=== PATIENT | male | born 2000 | race Caucasian/White ===

== ENCOUNTER 2021-01-16 19:49 | Emergency (ER) | payer BC, OTHER ==
[~2021-01-16] VITALS: Ht 177.8 cm; Wt 83.9 kg
[2021-01-16] MEDS ORDERED: ORPHENADRINE 60 MG/2 ML (NORFLEX) AMP (ED ONLY) IVP STA (20:05)
[2021-01-16] MEDS ORDERED: NS IV 1000 ML 1,000 ML IV STA ×2 (20:05→21:32)
[2021-01-16] MEDS ORDERED: ONDANSETRON 4 MG/2 ML (SDV) Z0FRAN IVP STA (20:05)
[2021-01-16] MEDS ORDERED: KETOROLAC 30 MG/ML VIAL IVP STA (20:05)
--- NOTE | 2021-01-16 20:15 | ED Headache ---
General Chief Complaint: Head/Cervical Problems Stated Complaint: RT SIDE OF HEAD PULSING,SHAKING,VOMITTING Nursing Triage Note: Patient states that he began having a headache at approximately 16:00 today. Patient took 200mg of Ibuprofen at that time and went to sleep. When patient awoke from his nap, he states the headache felt worse. He reports vomiting once. Patient denies having any injury or symptoms of illness. Source: patient History of Present Illness Date Seen by Provider: Jan 16, 2021 Time Seen by Provider: 19:54 Initial Comments 20 yo male presenting with complaints of right sided headache and neck pain. He denies any trauma or injury to head. He feels the symptoms started around 1600. He has had coughing along with this. He denies subjective fever or chills. He has not taken his temperature prior to arrival. He tried 200 mg of Ibuprofen and took a nap. When he woke up he felt the pain was worse and had an episode of emesis x 1. He has some light sensitivity as well. he denies having headaches or symptoms like this before. 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 He denies any ill contacts. Timing/Duration: 4-6 hours Severity/Quality: severe (8 out of 10), throbbing Location: other (right side of head and neck) Prior Headaches/Recent Trauma: no recent headache/trauma Modifying Factors: worse with exposure to light, worse with movement Associated Symptoms: No confusion, No fatigue, No facial pain, No fever/chills, No flushing, No loss of consciousness, No nasal congestion, No nasal drainage, No numbness in legs/feet, No rash, No seizures, No sinus infection, No stiff neck, No vision changes, No weakness Allergies and Home Medications Allergies Coded Allergies: No Known Drug Allergies (Unverified , 01/16/21) Patient Home Medication List Home Medication List Reviewed: Yes Review of Systems Review of Systems Constitutional: No chills, No fever Eyes: Photophobia (mild) Ears, Nose, Mouth, Throat: denies ear pain, denies ear discharge, denies nose pain, denies nose discharge, denies epistaxis Respiratory: cough (started around time of headache); No short of breath Cardiovascular: no symptoms reported Gastrointestinal: see HPI Genitourinary: no symptoms reported; No dysuria Musculoskeletal: neck pain (tightness and pain to right lateral neck muscles) Skin: No rash Psychiatric/Neurological: Headache; Denies Numbness, Denies Paresthesia Past Bryvekj-Gvejqd-Bqyqqs Hx Patient Social History Tobacco Use?: No Substance use?: No Alcohol Use?: No Pt feels they are or have been: No Past Medical History Surgeries: Yes Orthopedic (Wrist and Lumbar spine) Respiratory: No Cardiac: No Neurological: No Genitourinary: No Gastrointestinal: No Musculoskeletal: No Endocrine: No HEENT: No Cancer: No Psychosocial: No Physical Exam Vital Signs Vital Signs - First Documented 01/16/21 19:53 Temp 37.0 Pulse 55 Resp 16 B/P (MAP) 139/81 (100) Pulse Ox 98 O2 Delivery Room Air Capillary Refill : Less Than 3 Seconds Height, Weight, BMI Height: '" Weight: lbs. oz. kg; 26.00 BMI Method: General Appearance: WD/WN, mild distress (appears to not feel well) HEENT: PERRL/EOMI, TMs normal, pharynx normal, photophobia (mild), other (tender to palpation right scalp and right lateral neck muscles with spasm) Neck: tender lateral (right lateral muscles of neck with spasm) Cardiovascular: normal peripheral pulses, regular rate, rhythm Respiratory: chest non-tender, lungs clear, normal breath sounds, no respiratory distress, no accessory muscle use Gastrointestinal: normal bowel sounds, non tender, soft, no pulsatile mass Extremities: normal range of motion, non-tender, normal capillary refill Psychiatric: alert, oriented x 3 Crainal Nerves: normal hearing, normal speech, PERRL Coordination/Gait: normal gait Motor/Sensory: no motor deficit, no sensory deficit Skin: normal color, warm/dry; No rash Progress/Results/Core Measures Results/Orders Lab Results Laboratory Tests Test 01/16/21 20:08 Range/Units White Blood Count 7.4 4.3-11.0 10^3/uL Red Blood Count 5.00 4.30-5.52 10^6/uL Hemoglobin 14.7 13.3-17.7 g/dL Hematocrit 41 40-54 % Mean Corpuscular Volume 82 80-99 fL Mean Corpuscular Hemoglobin 29 25-34 pg Mean Corpuscular Hemoglobin Concent 36 32-36 g/dL Red Cell Distribution Width 12.3 10.0-14.5 % Platelet Count 203 130-400 10^3/uL Mean Platelet Volume 10.4 9.0-12.2 fL Immature Granulocyte % (Auto) 0 % Neutrophils (%) (Auto) 71 42-75 % Lymphocytes (%) (Auto) 22 12-44 % Monocytes (%) (Auto) 6 0-12 % Eosinophils (%) (Auto) 1 0-10 % Basophils (%) (Auto) 0 0-10 % Neutrophils # (Auto) 5.2 1.8-7.8 X 10^3 Lymphocytes # (Auto) 1.6 1.0-4.0 X 10^3 Monocytes # (Auto) 0.5 0.0-1.0 X 10^3 Eosinophils # (Auto) 0.0 0.0-0.3 10^3/uL Basophils # (Auto) 0.0 0.0-0.1 10^3/uL Immature Granulocyte # (Auto) 0.0 0.0-0.1 10^3/uL Prothrombin Time 12.9 12.2-14.7 SEC INR Comment 0.9 0.8-1.4 Activated Partial Thromboplast Time 27 24-35 SEC Sodium Level 139 135-145 MMOL/L Potassium Level 3.6 3.6-5.0 MMOL/L Chloride Level 101 98-107 MMOL/L Carbon Dioxide Level 22 21-32 MMOL/L Anion Gap 16 H 5-14 MMOL/L Blood Urea Nitrogen 24 H 7-18 MG/DL Creatinine 1.14 0.60-1.30 MG/DL Estimat Glomerular Filtration Rate 81 BUN/Creatinine Ratio 21 Glucose Level 111 H 70-105 MG/DL Calcium Level 9.8 8.5-10.1 MG/DL Corrected Calcium 8.5-10.1 MG/DL Total Bilirubin 0.8 0.1-1.0 MG/DL Aspartate Amino Transf (AST/SGOT) 22 5-34 U/L Alanine Aminotransferase (ALT/SGPT) 21 0-55 U/L Alkaline Phosphatase 68 40-136 U/L Total Protein 7.4 6.4-8.2 GM/DL Albumin 5.0 H 3.2-4.5 GM/DL Lipase 16 8-78 U/L My Orders Orders - SRIDEVI JACOBSON MD Ed Iv/Invasive Line Start (01/16/21 20:04) Cbc With Automated Diff (01/16/21 20:04) Comprehensive Metabolic Panel (01/16/21 20:04) Ct Head Wo (01/16/21 20:04) Chest 1 View Ap/Pa Only (01/16/21 20:04) Ns Iv 1000 Ml (Sodium Chloride 0.9%) (01/16/21 20:05) Ketorolac Injection (Toradol Injection) (01/16/21 20:05) Ondansetron Injection (Zofran Injectio (01/16/21 20:05) Orphenadrine Inj (Ed Only) (Norflex Inje (01/16/21 20:05) Lipase (01/16/21 20:05) Protime With Inr (01/16/21 21:00) Partial Thromboplastin Time (01/16/21 21:00) Ns Iv 1000 Ml (Sodium Chloride 0.9%) (01/16/21 21:32) Vital Signs/I&O 01/16/21 01/16/21 19:53 22:08 Temp 37.0 Pulse 55 63 Resp 16 13 B/P (MAP) 139/81 (100) 130/69 Pulse Ox 98 100 O2 Delivery Room Air Room Air 01/17/21 00:00 Intake Total 1000 ml Balance 1000 ml Blood Pressure Mean: 100 Progress Progress Note #1: Progress Note He denies hx of migraines or headaches and no trauma to his head. He had sudden onset this evening of pain to right side of head and neck as well as cough. Will check CT head with his complaint of right sided headache and neck spasm. Check basic labs to look at electrolytes and blood count. CXR with his complain of cough to see if he has infiltrates or effusion. give 1 L NS bolus for hydration, Toradol for pain, Zofran for nausea, Norflex for muscle spasms. Differential diagnosis includes migraine headache, tension headache, electrolyte imbalance, dehydration, sinusitis, mastoiditis Progress Note #2: Time: 20:46 Progress Note Pt reports pain down to 2/10 from 8/10. He has improved nausea as well. Labs show stable CBC without acute significant abnormality. He has mild increase to BUN and Cr so he might be slightly dry or dehydrated. Fluids infusing for hydration currently. CXR clear of acute process and waiting on reading of CT head without contrast. Progress Note #3: Time: 21:[address] scan of head read out as subarachnoid hemorrhage right temporal lobe. Updated pt about report and need to transfer to hospital with Neurosurgery. He requested I call and speak to his father to see where he recommends going. When asking again if he was doing anything when the pain started or if any trauma, pt continues to deny trauma but states he was weight lifting when the headache started. He denies any known history of aneurysm for him or family. 2108 D/w his father, Gopi. He requested pt to go to [facility] rather than [facility]. 2115 call placed to [facility] to see about possible transfer to [facility] or [facility] facility with Neurosurgery. I spoke with ANGELA Garvey, and she advised me that [facility], [facility] were all currently closed to transfers and [facility] might be able to take him but as that was further away will check with [facility] first and if not able to go there can check back. 2121 D/w ANGELA Welch, at [facility] and he took information on the patient and requested images be clouded. Will check with Neurosurgery and see if they can take patient. 2142 ANGELA Welch, called back and stated Dr. Aragon with neurosurgery accepted the patient for transfer and he will call back with bed assignment shortly. 2149 ANGELA Welch, called back with bed assignment for patient. Will have EMS transport pt so he could have airway and neuro monitoring. Progress Note #4: Time: 22:22 Progress Note Patient leaving with EMS to transport to [facility] Diagnostic Imaging Diagonstic Imaging: Xray Plain Films/CT/US/NM/MRI: chest Comments [facility] [place] [place] NAME: [facility] REC#: [id number] PT STATUS: REG ER : 2000 PHYSICIAN: SRIDEVI JACOBSON MD ADMIT DATE: 01/16/21/ER FS Draft Date of Exam:01/16/21 CHEST 1 VIEW AP/PA ONLY INDICATION: Cough. COMPARISON: No prior examinations are available for comparison. FINDINGS: The heart size, mediastinal configuration, and pulmonary vascularity are within normal limits. There is no pleural effusion, pneumothorax, or pneumonia. The osseous structures are unremarkable. IMPRESSION: No acute cardiopulmonary abnormality. Dictated on workstation # [id number] Dict: 01/16/212037 Trans: 01/16/212039 [facility] [id number] Interpreted by: ADDY EDUARDO MD Electronically signed by: Reviewed: Reviewed by Me Diagonstic Imaging: CT Plain Films/CT/US/NM/MRI: head Comments NAME: [facility] REC#: [id number] PT STATUS: REG ER : 2000 PHYSICIAN: SRIDEVI JACOBSON MD ADMIT DATE: 01/16/21/ER FS Draft Date of Exam:01/16/21 CT HEAD WO PROCEDURE: CT head without contrast. TECHNIQUE: Multiple contiguous axial images were obtained through the brain without the use of intravenous contrast. Auto Exposure Controls were utilized during the CT exam to meet ALARA standards for radiation dose reduction. INDICATION: Headache. FINDINGS: The ventricles and sulci are within normal limits. There is no hydrocephalus. There is no midline shift. There is some focal subarachnoid hemorrhage in the right temporal lobe. There is no mass. There is no extra-axial fluid collection. The calvarium is intact. There is a mucous retention cyst and/or polyp in the right maxillary sinus. IMPRESSION: Focal subarachnoid hemorrhage in the right temporal lobe of uncertain etiology. Recommend clinical correlation and, if warranted, followup with formal angiography. No other acute intracranial abnormality. Dictated on workstation # [id number] Dict: 01/16/212035 Trans: 01/16/212053 [facility] [phone] Interpreted by: ADDY EDUARDO MD Electronically signed by: Reviewed: Reviewed by Me Departure Impression Primary Impression: Subarachnoid hemorrhage Additional Impression: Right-sided headache Disposition: XF T-TRM HOSP Condition: Stable Transfer Transfer Reason: Exceeds level of care (Needs Neurosurgery and possible Interve ntional Radiology) Time Spoke to Accepting Phy: 21:43 Transfer Progress Notes ANGELA Welch, called back from [facility] at [address] Aragon with Neurosurgery accepted pt in transfer. Will call back with bed assignment shortly. Transfer Facility: [facility] Method of Transfer: EMS Departure-Patient Inst. Referrals: NO,LOCAL PHYSICIAN (PCP/Family) Primary Care Physician SRIDEVI JACOBSON MD Jan 16, 2021 20:15
[2021-01-16 20:25] LABS: BASOPHILS % (AUTO) 0 % (0-10); EOSINOPHILS % (AUTO) 1 % (0-10); HEMATOCRIT 41 % (40-54); HEMOGLOBIN 14.7 g/dL (13.3-17.7); LYMPHOCYTES # (AUTO) 1.6 X 10^3 (1.0-4.0); LYMPHOCYTES % (AUTO) 22 % (12-44); MEAN CORPUSCULAR HEMOGLOBIN 29 pg (25-34); MEAN CORPUSCULAR HGB CONC 36 g/dL (32-36); MEAN CORPUSCULAR VOLUME 82 fL (80-99); MEAN PLATELET VOLUME 10.4 fL (9.0-12.2); MONOCYTES # (AUTO) 0.5 X 10^3 (0.0-1.0); MONOCYTES % (AUTO) 6 % (0-12); NEUTROPHILS # (AUTO) 5.2 X 10^3 (1.8-7.8); NEUTROPHILS % (AUTO) 71 % (42-75); PLATELET COUNT 203 10^3/uL (130-400); WHITE BLOOD COUNT 7.4 10^3/uL (4.3-11.0)
[2021-01-16 20:37] LABS: CARBON DIOXIDE 22 MMOL/L (21-32); CHLORIDE 101 MMOL/L (98-107); POTASSIUM 3.6 MMOL/L (3.6-5.0); SODIUM 139 MMOL/L (135-145)
[2021-01-16 20:38] LABS: ALANINE AMINOTRANSFERASE 21 U/L (0-55); ALKALINE PHOSPHATASE 68 U/L (40-136); BILIRUBIN,TOTAL 0.8 MG/DL (0.1-1.0); BUN/CREATININE RATIO 21; CALCIUM 9.8 MG/DL (8.5-10.1); CREATININE SERUM 1.14 MG/DL (0.60-1.30); GFR ESTIMATED 81; GLUCOSE 111 MG/DL (70-105); TOTAL PROTEIN 7.4 GM/DL (6.4-8.2)
--- NOTE | 2021-01-16 20:40 | Diagnostic Imaging Report ---
INDICATION: Cough. COMPARISON: No prior examinations are available for comparison. FINDINGS: The heart size, mediastinal configuration, and pulmonary vascularity are within normal limits. There is no pleural effusion, pneumothorax, or pneumonia. The osseous structures are unremarkable. IMPRESSION: No acute cardiopulmonary abnormality. Dictated by: Dictated on workstation # [id number]
--- NOTE | 2021-01-16 20:54 | Diagnostic Imaging Report ---
PROCEDURE: CT head without contrast. TECHNIQUE: Multiple contiguous axial images were obtained through the brain without the use of intravenous contrast. Auto Exposure Controls were utilized during the CT exam to meet ALARA standards for radiation dose reduction. INDICATION: Headache. FINDINGS: The ventricles and sulci are within normal limits. There is no hydrocephalus. There is no midline shift. There is some focal subarachnoid hemorrhage in the right temporal lobe. There is no mass. There is no extra-axial fluid collection. The calvarium is intact. There is a mucous retention cyst and/or polyp in the right maxillary sinus. IMPRESSION: Focal subarachnoid hemorrhage in the right temporal lobe of uncertain etiology. Recommend clinical correlation and, if warranted, followup with formal angiography. No other acute intracranial abnormality. Dictated by: Dictated on workstation # [id number]
[2021-01-16 21:15] LABS: INR 0.9 (0.8-1.4); PROTHROMBIN TIME PATIENT 12.9 SEC (12.2-14.7)
[2021-01-16 22:08] VITALS: BP 130/69
== END 2021-01-16 22:23 | disposition short-term general hospital (02) ==
LOC: ER FS 19:51
DX: I60.9 Nontraumatic subarachnoid hemorrhage, unspecified (principal)
CPT/HCPCS: 36415; 70450; 71045; 80053; 83690; 85025; 85610; 85730; 99291

== ENCOUNTER 2021-01-23 13:32 | Emergency (ER) | payer BC, OTHER ==
[~2021-01-23] VITALS: Ht 177.8 cm; Wt 84.1 kg
--- OUTSIDE RECORDS SUMMARY | 2021-01-23 13:38 | XMS REPORT | Encounter Summary ---
Author Author [facility] Organization [facility] Address Unknown Phone Unavailable Care Team Providers Care Gun Number Name Role Phone Jud Lowery MD PCP Reason for Referral * Consult, Test & Treat (Discharge Pending) Referred By Contact Referred To Contact Status Reason Specialty Diagnoses / Procedures Linda Brian, MELLY-WHEEL FITTER [address] [facility] L[address] [place] [address] New Request Neurosurgery Diagnoses SAH (subarachnoid hemorrhage) (HCC) P rocedures APPOINTMENT REQUEST: NEUROSURGERY Electronically signed by Linda BENAVIDEZ at Reason for Visit * Auth/Cert Referred By Contact Referred To Contact Status Reason Specialty Diagnoses / Procedures Diagnoses SAH (subarachnoid hemorrhage) (HCC) SAH Encounter Details Care Team Description Date Type Department Nidhi Aragon MD [address] [facility] L[address] [place], [place] [id number] Mert Bolivar MD [address] [facility] [address] [place] [address] [phone] SAH (subarachnoid hemorrhage) (HCC) 01/16/2021 Hospital Intensive Care Unit CA5: - Encounter Freddie Bar 01/20/2021 [address] [facility] Level 5 [place] [address] Social History Date Tobacco Use Types Packs/Day Years Used Never Assessed Sex Assigned at Date Recorded Not on file Date Recorded COVID-19 Exposure Response 01/16/2021 9:43 PM CDT In the last month, have you been in contact with No / Unsure someone who was confirmed or suspected to have Coronavirus / COVID-19? documented as of this encounter Last Filed Vital Signs Reading Time Taken Comments Vital Sign 114/84 01/20/2021 3:00 PM CDT Blood Pressure 55 01/20/2021 3:00 PM CDT Pulse 36.9 C (98.4 F) 01/20/2021 12:00 PM CDT Temperature - - Respiratory Rate 100% 01/20/2021 3:00 PM CDT Oxygen Saturation - - Inhaled Oxygen Concentration 85.6 kg (188 lb 11.4 oz) 01/16/2021 11:56 PM CDT Weight 177.8 cm (5' 10") 01/16/2021 11:56 PM CDT Height 27.08 01/16/2021 11:56 PM CDT Body Mass Index documented in this encounter Functional Status Date of Assessment Functional Status Response 01/19/2021 Does the patient have a hearing impairment: No documented as of this encounter Discharge Summaries * Linda Brian APRN-NP - 01/20/2021 4:11 PM CDT Discharge Summary Name: Thom Sidhu Date Of : 2000 Age: 20 years Admit date: 01/16/2021 Discharge date: 01/20/2021 Discharge Attending: Mert Bolivar MD Discharge Summary Completed By: REEMA Almanzar Service: Surgery-Neuro Reason for hospitalization: SAH (subarachnoid hemorrhage) ([facility]) [I60.9] Primary Discharge Diagnosis: SAH (subarachnoid hemorrhage) ([facility]) Hospital Diagnoses: Hospital Problems Active Problems * (Principal) SAH (subarachnoid hemorrhage) ([facility]) Headache Leukopenia Resolved Problems RESOLVED: Hypokalemia RESOLVED: Constipation Significant Past Medical History No past medical history on file. Allergies Patient has no known allergies. Brief Hospital Course The patient was admitted and the following issues were addressed during this hos pitalization: (with pertinent details including admission exam/imaging/labs). Thom Sidhu is a 20 y.o. male with no past medical history, not on [employer] anticoagu lation, who presented as a transfer from [facility] with subarachnoid hemorrhage. The patient reports he was then in usual state of health until 4 PM 01/16. The patient was lifting weights at this time when he started to develop right-sided headaches. He originally thought nothing of it, went home, took so me [id number] ibuprofen and took a nap. However, on waking he was nauseou s and vomiting. He went to [facility] ED for further evaluation. CT head was d one which demonstrated thin right focal temporal subarachnoid hemorrhage. Mariangel garza was transferred to [facility] for higher level of carel Patient was admitted to the Neuro ICU On 01/17. CTA obtained and reviewed on ad mission, demonstrating possible small 2 mm right M1 MCA segment aneurysm. Later iun the day on 01/17 patient went to IR for diagnostic cerebral angiogram which was negative for vascular abnormality. Patient returned to the ICU in stable con dition. Patient tolerated a PO diet and worked with PT/OT. Patient returned to I R on 01/20 which confirmed no aneurysm, AVM, or dAVF. Patient met criteria for d ischarge and was discharged home on 01/20. Patient has 4 week follow up with Dr. Bolivar and repeat CT head scheduled. Objective: Awake and alert States name, hospital, year correctly ZAMORA to command Strength grossly intact at bed level Items Needing Follow Up Pending items or areas that need to be addressed at follow up: none Pending Labs and Follow Up Radiology Pending labs and/or radiology review at this time of discharge are listed below: if this area is blank, there are no items for review. none Medications Medication List START taking these medications acetaminophen 325 mg tablet; Commonly known as: TYLENOL; Dose: 650 mg; Take two tablets by mouth every 4 hours as needed.; Refills: 0 oxyCODONE 5 mg tablet; Commonly known as: ROXICODONE; Dose: 5-10 mg; Take one tablet to two tablets by mouth every 4 hours as needed NTE 6 tabs/day; Quantity: 20 tablet; Refills: 0 CONTINUE taking these medications famciclovir 500 mg tablet; Commonly known as: FAMVIR; Dose: 500 mg; Refills: 0 STOP taking these medications ibuprofen 200 mg tablet; Commonly known as: ADVIL Return Appointments and Scheduled Appointments No appointment scheduled Consults, Procedures, Diagnostics, Micro, Pathology Consults: Neuro Critical Care, Interventional Radiology Surgical Procedures & Dates: none Significant Diagnostic Studies, Micro and Procedures: noted in brief hospital co urse Significant Pathology: none Nutrition: No Dietitian Consult Discharge Disposition, Condition Patient Disposition: Home Condition at Discharge: Stable Code Status Code Status History Date Active Date Inactive Code Status Order ID 01/16/2021 [id number] 01/20/2021 1811 Full Code [id number] [facility] Patient Instructions Regular Diet You have no dietary restriction. Please continue with a healthy balanced diet. Activity as Tolerated It is important to keep increasing your activity level after you leave the hosp ital. Moving around can help prevent blood clots, lung infection (pneumonia) an d other problems. Gradually increasing the number of times you are up moving ar ound will help you return to your normal activity level more quickly. Continue to increase the number of times you are up to the chair and walking daily to ret urn to your normal activity level. Begin to work toward your normal activity lev el at discharge. Activity As tolerated; no driving while on pain medication. Avoid pulling, pushi ng or lifting greater than 10 pounds. No alcoholic beverages or sexual intercour se until seen at follow up. No heavy lifting or moderate/vigorous activity. Ligh t exercise/physical activity is okay and recommended. Resumption of normal activ ities will be discussed and evaluated at follow up Report These Signs and Symptoms Please contact your doctor if you have any of the following symptoms: Call if t emperature greater than 101, incision red, drainage or odor noted from incision, pain that is uncontrolled with pain medication, numbness or weakness, vision ch anges, trouble with speech or slurring of speech, or any questions/concerns. Questions About Your Stay For questions or concerns regarding your hospital stay call the clinic at . If outside normal business hours, call [phone] and ask for the trent rosurgery resident extrusion operator to be paged. Discharging attending physician: MERT BOLIVAR [[id number]] Incision Care *Call if there is an increase in pain, swelling, or redness. *DO NOT soak incision in water. *NO tub baths, hot tubs, or swimming. *You may shower after discharge. Work/School Restrictions You may return to school after follow-up appointment. Appointment Request: Neurosurgery Please order Ct head without contrast to coincide with 4 week appointment. Josefa weber is out on vacation, so will need imaging order. Thank you. Diagnosis or reason for outpatient appointment request: SAH, angio negative Did this patient have surgery by neurosurgeon during hospital stay? No Was the patient seen in hospital by neurosurgery? Yes Is there a requested provider for follow up? Yes If so, whom? Dr. Bolivar What is the time frame for requested outpatient appointment? [address] head without contrast for evaluation of SAH Pager # of requesting provider if there are any questions? [phone] Additional Orders: Case Management, Supplies, Home Health Home Health/DME None Signed: Linda Brian, MELLY-WHEEL FITTER 01/23/2021 cc: Primary Care Physician: Jud Lowery Referring physicians: No Pcp, Na Additional provider(s): Did we miss something? If additional records are needed, please fax a request on office letterhead to [phone]. Please include the patient's name, date of b irth, fax number and type of information needed. Additional request can be made by email at [email or web address]. For general questions of information about electronic records sharing, call [phone]. documented in this encounter Discharge Instructions * Patient Instructions* Elizabeth Plascencia RN - 01/20/2021 9:27 AM CDT Images from the original note were not included. INTERVENTIONAL RADIOLOGY DISCHARGE INSTRUCTIONS At [facility], [place], [place] ARTERIOGRAM An arteriogram or angiogram is a procedure in which a tiny catheter is inserted into an artery and fluoroscopy (x-rays) and contrast dye are used by the Interve ntional Radiologist to diagnose or treat certain conditions. Some examples of conditions that involve arteriography include narrowed or blocked arteries, connor rial malformations, and arterial bleeding that may occur from trauma. Arteriogra phy can be used in many different parts of the body and may also be used during treatment of certain malignancies. AFTER YOUR PROCEDURE: You will recover in Interventional Radiology for a minimum of 2 hours after y our procedure. During that period you must remain completely flat. POST-PROCEDURE PAIN: Pain control following your procedure is a priority for both you and your Phy sicians. Some soreness or tenderness at the site is to be expected for several days. W e recommend taking over the counter analgesics to help relieve this pain. Alternative methods for pain relief include but not limited to heat or cold c ompress, relaxation techniques, rest, and changing of positions. If pain continues after 5-7 days or you have severe pain not relieved by medi cation, please contact us as directed below. POST-PROCEDURE ACTIVITY: A responsible adult must drive you home. If you receive sedation, narcotic pain medication or anesthesia for the proce dure, you should not drive or operate heavy machinery or do anything that requir es concentration for at least 24 hours after procedure completion. It is recommended that a responsible adult be with you until morning. Avoid any exertion for one week. Exertion is lifting over 10 lbs., pushing, pulling or straining. Avoid excessive bending, stooping, or stair climbing for 2 days. It is okay to go up stairs or bend over but take it slowly and keep it to a minimum. You may be up and about while relaxing at home as you recover. POST-PROCEDURE SITE CARE: You will have a small bandage over the procedure site. Keep this dry. You may remove it in 24 hours. You may shower in 24 hours, after removing the bandage. Do not submerge the procedure site for 1 week (no bathtub, swimming, hot tub, etc.) Do not use ointments, creams or powders on the puncture site. Be sure your hands are clean when touching near the site Inspect the site daily. DIET/MEDICATIONS: You may resume your previous diet after the procedure. If you receive sedation or narcotic pain medications, avoid any foods or beve rages containing alcohol for at least 24 hours after the procedure. Please see the Medication Reconciliation sheet for instructions regarding res uming your home medications WHEN TO CALL THE DOCTOR: If you have significant bleeding (more than a teaspoon) or swelling at the si te (bigger than a golf ball), lie down, apply firm pressure to the site and call 911. Bleeding from a large vessel requires professional help. If you havesevere pain unrelieved by medication. It is common to have mil d soreness or slight swelling at the puncture site for 1-2 weeks. If you have numbness, tingling, or weakness in the leg below the puncture sit e or your leg becomes cold and pale. If you have persistent nausea or vomiting. You have signs of infection such as: fever greater than 101F, chills, redness , warmth, swelling, drainage or pus from the puncture site. For any of the above symptoms or for problems or concerns related to the procedu re that was performed at the [facility], [phone] Mo nd-Saturday from 7-5p. After-hours and weekends, please [phone] and ask for the [employer] on-call. YOU OR YOUR CAREGIVER SHOULD CALL 911 FOR ANY SEVERE SYMPTOMS SUCH EXCESSIVE BLEEDING, SEVERE DIZZINESS, TROUBLE BREATHING OR LOSS OF CONSCIOUSNESS. * Appointments* Linda Brian APRN-NP - 01/20/2021 2:21 PM CDT We have requested a follow up appointment and repeat CT head in 4 weeks. Once th is appointment is made, details will be available on your MyChart. documented in this encounter Medications at Time of Discharge Start Date End Date Medication Sig Dispensed Refills 01/20/2021 acetaminophen (TYLENOL) Take two 0 325 mg tablet tablets by mouth every 4 hours as needed. famciclovir (FAMVIR) 500 Take 500 mg 0 mg tablet by mouth every 8 hours. 01/20/2021 oxyCODONE (ROXICODONE) 5 Take one 20 tablet 0 mg tablet tablet to two tablets by mouth every 4 hours as needed NTE 6 tabs/day documented as of this encounter Ordered Prescriptions Start Date End Date Prescription Sig Dispensed Refills 01/20/2021 oxyCODONE (ROXICODONE) 5 Take one 20 tablet 0 mg tablet tablet to two tablets by mouth every 4 hours as needed NTE 6 tabs/day 01/20/2021 acetaminophen (TYLENOL) Take two 0 325 mg tablet tablets by mouth every 4 hours as needed. documented in this encounter Discharge Disposition Code Departure Means Destination Disposition Car Home or Self Care documented in this encounter Progress Notes * Elba Casper RN - 01/20/2021 4:11 PM CDT 1545: Discharge instructions provided to patient. All questions answered. Mariangel garza discharged via wheelchair. * Linda Brian APRN-NP - 01/20/2021 11:27 AM CDT Neurosurgery Progress Note Admission Date: 01/16/2021 LOS: 4 days Subjective: No acute events noted. Patient seen this morning with resident team. Seen again with Dr. Bolivar. Aware of plan for repeat angio today. Hopeful for joshua e following procedure Objective: Awake and alert States name, hospital, year correctly ZAMORA to command Strength grossly intact at bed level A/P: Thom Sidhu is a 20 y.o. male with SAH (subarachnoid hemorrhage) ([facility]) [I60 .9] Patient Active Problem List Diagnosis Date Noted Leukopenia 01/19/2021 Headache 01/17/2021 SAH (subarachnoid hemorrhage) ([facility]) 01/16/2021 Neurologically stable-- >IR angio 01/17 negative for aneurysm, AVM, or dAVF >repeat angio Saturday 01/20--completed, negative for AVM, aneurysm, or dAVF >discontinue Keppra and nimotop Regular diet Na 142 Creat 1.26--baseline on admission 1.23. PRN pain control PT/OT-home no further therapy needs Discharge planning ongoing, likely home later today once recovered from procedur e Prophylaxis: A)GI: PPI B) Lines: No C) Urinary Catheter: No D) Antibiotic Usage: No E) VTE: Mechanical prophylaxis; Sequential compression device; No anticoagulati on until 48 hours post operative; contraindication due to bleeding risk F) Restraints: Patient assessed for need for restraints. Please page [phone] with any questions. REEMA Almanzar Voalte me * Jon Reid RN - 01/20/2021 10:13 AM CDT Sedation physician present in room. Recent vitals and patient condition reviewed between sedating physician and nurse. Reassessment completed. Determination made to proceed with planned sedation. * Roseline Arias APRN-NP - 01/20/2021 6:48 AM CDT Neuro Critical Care Progress Note Thom Sidhu Admission Date: 01/16/2021 LOS: 4 days Full Code ASSESSMENT/PLAN Patient Active Problem List Diagnosis Date Noted Leukopenia 01/19/2021 Headache 01/17/2021 SAH (subarachnoid hemorrhage) (HCC) 01/16/2021 Thom Sidhu is a 20 y.o. male with with noP. On 01/[address] sung sheikh lifting weights when he developed a headache. He returned hometoo k OTC ibuprofen and laid down for anap but laterwoke up vomiting and severe right sided headache. He went to an OSH without neurological deficits and CT hea d demonstrated a SAH. He was given 1L of IVF, toradol, norflex and zofran prior to being transferred to [facility] for a higher level of care. Hospital and ICU course: 01/17: transferred from [facility]. Started on nimotop and keppra. ST AT CTA head W/WO contrast.DSA. 01/18:stable 01/19: stable 01/20: Plan for angiogram in IR Neuro: Acute SAH, HH1, MFS1 -01/17 CTA head: 1. No significant change in right cerebral subarachnoid hemorrhage, mainly withi n the right sylvian fissure. 2. 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 - 01/17 Cerebral angiogram negative for etiology of hemorrhage; plan for repeat today (01/20) -Will continue to treat for possible aSAH - SBP < 140 - Na 142 -Continue keppra and nimotop - Neuro-ICU monitoring, [id number] - PT/OT Sedation/Pain Management: -PRNtylenol and oxycodone - PRN Xanax (UDS + benzos) - Assess for delirium daily Cardiac: - Continuous telemetry monitoring - SBP goal:< 140 - MAP goal > 65 - PRN labetalol & hydralazine- has not required Respiratory: - Stable on room air - Spo2 goal >95% - Encourage IS Q1 while awake GI: N/V secondary to SAH- resolved - Feeding:NPO for IR, previously regular diet - PRN ondansetron -Neuro bowel regimen + Miralax, ensure daily BM - Last BM: 01/19 Heme: -Hgb 13.8, Plt 155 - SCDs only, begin chemoppx when cleared by NSG -Assess for coagulopathy, maintain platelets above 100k, INR <1.5 ID: COVID negative on arrival -WBC 4.2, afebrile -no fevers, no acute infectious concerns, no current abx -Aim for normothermia, Temp <38.3 celsius, normothermia protocol if febrile Renal: - BUN 21, Creat 1.26 - Trend renal function on daily BMP - Voiding spontaneously - Monitor hourly I/O balance - Aim for normovolemia Intake/Output Summary (Last 24 hours) at 01/20/2021 0651 Last data filed at 01/20/2021 0000 Gross per 24 hour Intake 2500 ml Output 2300 ml Net 200 ml Endocrine: - SBG 95 - Trend glucose on daily BMP and PRN - Blood glucose goal 100-180mg/dl FEN: - Daily BMP, Mg, Phos, and iCal - IVF:SL - Magnesium goal >2.0, i-Barrington goal > 1.0, Potassium goal >4.0 mEq/L - Critical Care Electrolyte Replacement Protocol Primary service:Neurosurgery Consults:Neuro Critical Care, Neuro IR DONTE Tomas Nahum is a 20 y.o. male. Overnight Events: No new events noted. Patient denies SOLANO or nausea, no other complaints. OBJECTIVE Vital Signs: Last Filed Vital Signs: 24 Hour Ra nge BP: 117/69 (01/20 0500) Temp: 37.4 C (99.3 F) (01/20 0400) Pulse: 50 (01/20 0500) Respirations: 20 PER MINUTE (01/20 0500) SpO2: 99 % (01/20 050) BP: (93-133)/(49-83) Temp: [36.4 C (97.6 F)-37.4 C (99.3 F)] Pulse: [34-68] Respirations: [10 PER MINUTE-23 PER MINUTE] SpO2: [96 %-100 %] Intensity Pain Scale (Self Report): (not recorded) Vitals: 01/16/21 2356 Weight: 85.6 kg (188 lb 11.4 oz) Lines: Peripheral Line Drains: None Physical Exam: Blood pressure 117/69, pulse 50, temperature 37.4 C (99.3 F), height 177.8 c m (70"), weight 85.6 kg (188 lb 11.4 oz), SpO2 99 %. Chelita coma score: E: 4 - Opens eyes on own M: 6 - Follows simple motor commands V: 5 - Alert and oriented Neuro: Mental Status: A&Ox4 Cranial Nerves: Cranial nerves 2-12 INTACT by inspection. - Pupil exam: Size: 3 Reactivity: brisk Motor: RUE: Strength: 5/5; follows commands x 4 RLE: Strength: 5/5; LUE: Strength: 5/5; LLE: Strength: 5/5; Sensory: normal Coordination: intact Lungs: clear to auscultation bilaterally Pulmonary: Respiratory status: Stable Heart: regular rate and rhythm, S1, S2 normal, no murmur, click, rub or gallop Abdomen: soft, non-tender. Bowel sounds normal. No masses, no organomegaly Extremities: extremities normal, atraumatic, no cyanosis or edema Skin: Skin color, texture, turgor normal. No rashes or lesions Point of Care Testing: (Last 24 hours) Glucose: 95 (01/20/21 0321) Lab Review: Pertinent labs reviewed Radiology and Other Diagnostic Procedures Review: Pertinent radiologic and diag nostic procedures reviewed. I spent 35 minutes managing the care of this patient. Mr. Sidhu is critically il l being managed for a subarachnoid hemorrhage. Cares included: detailed neurolog ic and systems exam, medication review, laboratory data review and interpretatio n, electrolyte management, review of available imaging, DVT/PE prophylaxis revie w, diet review, activity review, and coordination of care with consulted teams REEMA Beckman Date: 01/20/[phone] * Linda Brian APRN-NP - 01/19/2021 11:02 AM CDT Neurosurgery Progress Note Admission Date: 01/16/2021 LOS: 3 days Subjective: No acute events noted. Patient seen this morning with resident team. Seen again with Dr. Bolivar. Aware of plan for repeat angio tomorrow. Objective: Awake and alert States name, hospital, year correctly ZAMORA to command Strength grossly intact at bed level A/P: Thom Sidhu is a 20 y.o. male with SAH (subarachnoid hemorrhage) ([facility]) [I60 .9] Patient Active Problem List Diagnosis Date Noted Leukopenia 01/19/2021 Constipation 01/18/2021 Headache 01/17/2021 SAH (subarachnoid hemorrhage) ([facility]) 01/16/2021 Neuro: Neurologically stable. Okay for Q2 neuro checkes >IR angio 01/17 negative for aneurysm, AVM, or dAVF >repeat angio Saturday 01/20 >continue Keppra and nimotop Pulmonary: RA CV: SBP<140 GI: Regular diet FEN: Maintain euvolemia. Na 141 ID: Afebrile, no leukocytosis Heme: Hgb 13.6, plt 152 Disposition/Family: Continue ICU care. PT/OT Prophylaxis: A)GI: PPI B) Lines: No C) Urinary Catheter: No D) Antibiotic Usage: No E) VTE: Mechanical prophylaxis; Sequential compression device; No anticoagulati on until 48 hours post operative; contraindication due to bleeding risk F) Restraints: Patient assessed for need for restraints. Please page [phone] with any questions. REEMA Almanzar Voalte me * Eric Vaughan MD - 01/19/2021 10:39 AM CDT Neurointensivist Critical Care Progress Note Today's Date: 01/19/2021 Admission Date: 01/16/2021 LOS: 3 days Thom Sidhu is a 20 y.o. male admitted to the [facility] and is critically ill with n oPMH. On 01/16 hedrank an energy drink andwas lifting weights when he deve loped a headache. He returned hometook OTC ibuprofen and laid down for anap but laterwoke up vomiting and severe right sided headache. [facility] demonstrated a SAH. He was given 1L of IVF, toradol, norflex and zofran prior to being transferred to [facility].He is being managed for its treatment and the prevention and m anagement of secondary brain and other bodily injuries/dysfunctions. I have performed a detailed neurological and systems examination, assessment of intravascular volume status, assessment of cardio and pulmonary systems, medicat ion review, laboratory data review and interpretation, electrolyte management, r eview of available imaging, DVT/PE prophylaxis review, diet review, activity rev iew, and coordination of care with consulted teams. PMH: Significant for: History reviewed. No pertinent past medical history. Hospital and ICU course: Unremarkable to date, initial angio negative for aneurysm, plan to repeat tomorr ow Active problems currently being addressed include Patient Active Problem List Diagnosis Date Noted Leukopenia 01/19/2021 Constipation 01/18/2021 Headache 01/17/2021 SAH (subarachnoid hemorrhage) (HCC) 01/16/2021 __ Subjective: Overnight Events: No new events noted Objective: Most Recent vitals: BP: 118/63 (01/19 1000) Temp: 36.6 C (97.8 F) (01/19 0800) Pulse: 66 (01/19 1000) Respirations: 22 PER MINUTE (01/19 1000) SpO2: 98 % (01/19 1000) Vital Signs: 24 Hour Range BP: (85-160)/(50-86) Temp: [36.4 C (97.5 F)-36.9 C (98.4 F)] Pulse: [37-71] Respirations: [11 PER MINUTE-22 PER MINUTE] SpO2: [95 %-100 %] Vitals: 01/16/21 2356 Weight: 85.6 kg (188 lb 11.4 oz) Intensity Pain Scale (Self Report): (not recorded) Critical Care Vitals: ICP Monitoring: __ 24 hour I/O balance is as follows: Intake/Output Summary (Last 24 hours) at 01/19/2021 1039 Last data filed at 01/19/2021 1000 Gross per 24 hour Intake 3900 ml Output 2600 ml Net 1300 ml _ Physical Exam: General appearance: alert, cooperative and no distress Artificial airway: None Neurologic: Mental Status:Orientation: person, place, time, situation Grossly normal Pupil exam: equal, round, reactive to light EOM: intact Cranial Nerve Deficit: none Focal motor neurodeficit: none Lungs: clear to auscultation bilaterally Heart: regular rate and rhythm, S1, S2 normal, no murmur, click, rub or gallop Abdomen: soft, non-tender. Bowel sounds normal. No masses, no organomegaly Extremities: extremities normal, atraumatic, no cyanosis or edema __ Recent Labs: No results for input(s): PHART, PCO2A, HCO3A, PO2ART, [id number] in the last 72 h ours. Recent Labs 01/17/21301/17/2141901/18/2143901/19/210 NA 138 139 142 141 K 3.7 3.4* 4.3 3.7 CL 103 104 108 105 CO2 25 24 26 26 BUN 21 19 22 20 CR 1.23 1.19 1.23 1.16 GLU 101* 101* 100 99 GAP 10 11 8 10 GFR >60 >60 >60 >60 MG 1.8 -- 2.0 1.9 CA 9.5 9.2 9.1 8.8 PO4 3.4 -- 3.8 -- Recent Labs 01/17/21 0004 ALKPHOS 58 AST 20 ALT 18 TOTPROT 7.0 TOTBILI 0.9 ALBUMIN 4.8 Recent Labs 01/17/21 0004 01/17/2141901/18/2143901/19/21 0400 HGB 13.8 13.5 13.5 13.6 HCT 39.7* 37.9* 38.0* 38.8* WBC 6.0 4.6 4.1* 3.8* INR 1.0 -- -- -- __ I have reviewed the patient's list of medications: Current Meds: docusate (COLACE) capsule 100 mg, 100 mg, Oral, BID levETIRAcetam (KEPPRA) tablet 500 mg, 500 mg, Oral, BID milk of magnesia (CONC) oral suspension 10 mL, 10 mL, Oral, QDAY niMODipine (NIMOTOP) capsule 60 mg, 60 mg, Oral, Q4H Or nimodipine(#) oral solution 60 mg, 60 mg, Feeding Tube, Q4H senna/docusate (SENOKOT-S) tablet 2 tablet, 2 tablet, Oral, BID Assessment and Plan: Neuro: SAH day #4, nonaneurysmal PLAN: Continue SAH protocol Neuro intact, no evidence for vasospasm Plan repeat angio in a.m. Imaging: CXR/Neuroimaging: Reviewed availabel Radiology and Other Diagnostic Procedures Pain: Assessed and treated as indicated Prophylaxis Review: Lines: No Urinary Catheter: No Antibiotic for prophylaxis: none VTE Prophylaxis: Mechanical prophylaxis; Sequential compression device Diet: Continue enteral nutrition via PO Family Meeting and update: Patient is able to participate in medical therap y decisions, family was available during rounds Goals of therapy: Addressed, Patient is full code Nursing: concerns addressed. Disposition: Continue ICU care as patient's needs are being addressed Thom Sidhu has at least one organ system and is at risk for life threatening de terioration necessitating complex medical decision making and ongoing provision of ICU care. I have spent 35 minutes (excluding time spent performing or supervising any proc edures) providing and personally directing critical care services including: Eric Vaughan MD [phone] Date: 01/19/2021 * Roseline Arias, [employer] RADIO TECHNICIAN-WHEEL FITTER - 01/19/2021 6:59 AM CDT Neuro Critical Care Progress Note Thom Sidhu Admission Date: 01/16/2021 LOS: 3 days Full Code ASSESSMENT/PLAN Patient Active Problem List Diagnosis Date Noted Leukopenia 01/19/2021 Constipation 01/18/2021 Headache 01/17/2021 SAH (subarachnoid hemorrhage) (HCC) 01/16/2021 Thom Sidhu is a 20 y.o. male with noPMH. On 01/16 hedrank an energy drink a ndwas lifting weights when he developed a headache. He returned hometook OTC ibuprofen and laid down for anap but laterwoke up vomiting and severe right sided headache. He went to an OSH without neurological deficits and CT head dem onstrated a SAH. He was given 1L of IVF, toradol, norflex and zofran prior to be ing transferred to [facility] for a higher level of care. Hospital and ICU course: 01/17: transferred from [facility]. Started on nimotop and keppra. ST AT CTA head W/WO contrast.DSA. 01/18: stable 01/19: stable Neuro: Acute SAH, HH1, MFS1 -01/17 CTA head: 1. No significant change in right cerebral subarachnoid hemorrhage, mainly withi n the right sylvian fissure. 2. 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 - 01/17 Cerebral angiogram negative for etiology of hemorrhage; plan for repeat Saturday (01/20) - Will continue to treat for possible aSAH - SBP < 140 - Na 141 -continue keppra and nimotop - Consider 1:1 fluid replacement, if needed - Neuro-ICU monitoring, [id number] - PT/OT Sedation/Pain Management: -PRNtylenol and oxycodone - PRN Xanax (UDS + benzos) - Assess for delirium daily Cardiac: - Continuous telemetry monitoring - SBP goal:< 140 - MAP goal > 65 - PRN labetalol & hydralazine- has not required Respiratory: - Stable on room air - Spo2 goal >95% - Encourage IS Q1 while awake GI: N/V secondary to SAH- improved - Feeding:regular diet - PRN ondansetron -Neuro bowel regimen, ensure daily BM - Last BM: [employer] Heme: - Hgb 13.6, Plt 152 - SCDs only, begin chemoppx when cleared by NSG -Assess for coagulopathy, maintain platelets above 100k, INR <1.5 ID: COVID negative on arrival - WBC 3.8, afebrile -no fevers, no acute infectious concerns, no current abx -Aim for normothermia, Temp <38.3 celsius, normothermia protocol if febrile Renal: - BUN 20, Creat 1.16 - Trend renal function on daily BMP - Voiding spontaneously - Monitor hourly I/O balance - Aim for normovolemia Endocrine: - SBG 99 - Trend glucose on daily BMP and PRN - Blood glucose goal 100-180mg/dl FEN: - Daily BMP, Mg, Phos, and iCal - IVF:SL - Magnesium goal >2.0, i-[place] goal > 1.0, Potassium goal >4.0 mEq/L - Critical Care Electrolyte Replacement Protocol Primary service:Neurosurgery Consults:Neuro Critical Care, Neuro IR DONTE Sidhu is a 20 y.o. male. Overnight Events: No new events noted. Patient reports headache improved, no further issues with nausea. OBJECTIVE Vital Signs: Last Filed Vital Signs: 24 Hour Ra nge BP: 100/66 (01/19 0500) Temp: 36.8 C (98.2 F) (01/19 0400) Pulse: 39 (01/19 0500) Respirations: 14 PER MINUTE (01/19 0500) SpO2: 98 % (01/19 0500) BP: (85-160)/(50-86) Temp: [36.4 C (97.5 F)-36.9 C (98.4 F)] Pulse: [39-71] Respirations: [13 PER MINUTE-21 PER MINUTE] SpO2: [95 %-99 %] Intensity Pain Scale (Self Report): (not recorded) Vitals: 01/16/21 2356 Weight: 85.6 kg (188 lb 11.4 oz) Lines: Peripheral Line Drains: None Intake/Output Summary: (Last 24 hours) Intake/Output Summary (Last 24 hours) at 01/19/2021 0659 Last data filed at 01/19/2021 0200 Gross per 24 hour Intake 4500 ml Output 2050 ml Net 2450 ml Physical Exam: Blood pressure 100/66, pulse (!) 39, temperature 36.8 C (98.2 F), height 177 .8 cm (70"), weight 85.6 kg (188 lb 11.4 oz), SpO2 98 %. [place] coma score: E: 4 - Opens eyes on own M: 6 - Follows simple motor commands V: 5 - Alert and oriented Neuro: Mental Status: A&Ox4 Cranial Nerves: Cranial nerves 2-12 INTACT by inspection. - Pupil exam: Size: 3 Reactivity: brisk Motor: RUE: Strength: 5/5; follows commands x 4 RLE: Strength: 5/5; LUE: Strength: 5/5; LLE: Strength: 5/5; Sensory: normal Coordination: intact Lungs: clear to auscultation bilaterally Pulmonary: Respiratory status: Stable Heart: regular rate and rhythm, S1, S2 normal, no murmur, click, rub or gallop Abdomen: soft, non-tender. Bowel sounds normal. No masses, no organomegaly Extremities: extremities normal, atraumatic, no cyanosis or edema Skin: Skin color, texture, turgor normal. No rashes or lesions Point of Care Testing: (Last 24 hours) Glucose: 99 (01/19/21 0400) Lab Review: Pertinent labs reviewed Radiology and Other Diagnostic Procedures Review: Pertinent radiologic and diag nostic procedures reviewed. I spent 40 minutes managing the care of this patient. Thom Sidhu is in critical condition being managed for a subarachnoid hemorhage. Cares included: detailed neurologic and systems exam, medication review, laboratory data review and inter pretation, electrolyte management, review of available imaging, DVT/PE prophylax is review, diet review, activity review, and coordination of care with consulted teams. REEMA Beckman Date: 01/19/[phone] * Eric Vaughan MD - 01/18/2021 1:20 PM CDT Neurointensivist Critical Care Progress Note Today's Date: 01/18/2021 Admission Date: 01/16/2021 LOS: 2 days Thom Sidhu is a 20 y.o. male admitted to the [facility] and is critically ill with n oPMH. On 01/16 hedrank an energy drink andwas lifting weights when he deve loped a headache. He returned hometook OTC ibuprofen and laid down for anap but laterwoke up vomiting and severe right sided headache. He went to an OSH w ithout neurological deficits and CT head demonstrated a SAH. He was given 1L of IVF, toradol, norflex and zofran prior to being transferred to [facility].He is being managed for its treatment and the prevention and m anagement of secondary brain and other bodily injuries/dysfunctions. I have performed a detailed neurological and systems examination, assessment of intravascular volume status, assessment of cardio and pulmonary systems, medicat ion review, laboratory data review and interpretation, electrolyte management, r eview of available imaging, DVT/PE prophylaxis review, diet review, activity rev iew, and coordination of care with consulted teams. PMH: Significant for: History reviewed. No pertinent past medical history. Hospital and ICU course: Arrived neurologically intact. Imaging suggested 2 mm aneurysm, Angio found no a neurysm Active problems currently being addressed include Patient Active Problem List Diagnosis Date Noted Headache 01/17/2021 Hypokalemia 01/17/2021 SAH (subarachnoid hemorrhage) (HCC) 01/16/2021 __ Subjective: Overnight Events: No new events noted Objective: Most Recent vitals: BP: 124/64 (01/18 1200) Temp: 36.4 C (97.5 F) (01/18 1200) Pulse: 59 (01/18 1200) Respirations: 14 PER MINUTE (01/19 1200) SpO2: 99 % (01/18 1100) Vital Signs: 24 Hour Range BP: (91-132)/(41-90) Temp: [36.4 C (97.5 F)-37 C (98.6 F)] Pulse: [35-80] Respirations: [12 PER MINUTE-20 PER MINUTE] SpO2: [96 %-100 %] Vitals: 01/16/21 2356 Weight: 85.6 kg (188 lb 11.4 oz) Intensity Pain Scale (Self Report): (not recorded) 24 hour I/O balance is as follows: Intake/Output Summary (Last 24 hours) at 01/18/2021 1321 Last data filed at 01/18/2021 1000 Gross per 24 hour Intake 1530 ml Output 1450 ml Net 80 ml _ Physical Exam: General appearance: alert, well-developed and no distress Artificial airway: None Mental Status:Orientation: person, place, time, situation Neurologic: Grossly normal Pupil exam: equal, round, reactive to light EOM: intact Cranial Nerve Deficit: none Focal motor neurodeficit: none Lungs: clear to auscultation bilaterally Heart: regular rate and rhythm, S1, S2 normal, no murmur, click, rub or gallop Abdomen: soft, non-tender. Bowel sounds normal. No masses, no organomegaly Extremities: extremities normal, atraumatic, no cyanosis or edema __ Recent Labs: No results for input(s): PHART, PCO2A, HCO3A, PO2ART, [id number] in the last 72 h ours. Recent Labs 01/17/21301/17/2141901/18/21439 NA 138 139 142 K 3.7 3.4* 4.3 CL 103 104 108 CO2 25 24 26 BUN 21 19 22 CR 1.23 1.19 1.23 GLU 101* 101* 100 GAP 10 11 8 GFR >60 >60 >60 MG 1.8 -- 2.0 CA 9.5 9.2 9.1 PO4 3.4 -- 3.8 Recent Labs 01/17/213 ALKPHOS 58 AST 20 ALT 18 TOTPROT 7.0 TOTBILI 0.9 ALBUMIN 4.8 Recent Labs 01/17/21301/17/2141901/18/21439 HGB 13.8 13.5 13.5 HCT 39.7* 37.9* 38.0* WBC 6.0 4.6 4.1* INR 1.0 -- -- __ I have reviewed the patient's list of medications: Current Meds: docusate (COLACE) capsule 100 mg, 100 mg, Oral, BID levETIRAcetam (KEPPRA) tablet 500 mg, 500 mg, Oral, BID milk of magnesia (CONC) oral suspension 10 mL, 10 mL, Oral, QDAY niMODipine (NIMOTOP) capsule 60 mg, 60 mg, Oral, Q4H Or nimodipine(#) oral solution 60 mg, 60 mg, Feeding Tube, Q4H senna/docusate (SENOKOT-S) tablet 1 tablet, 1 tablet, Oral, BID Assessment and Plan: Neuro: SAH day #3, nonaneurysmal PLAN: SAH protocol Imaging: CXR/Neuroimaging: Reviewed availabel Radiology and Other Diagnostic Procedures Pain: Assessed and treated as indicated VTE Prophylaxis: Mechanical prophylaxis; Sequential compression device PT, OT: evaluation and treatment Diet: Initiate/Continue enteral nutrition via PO or [place] Social work and patient case coordinator for discharge planning and placement. Family Meeting and update: Patient is able to participate in medical therap y decisions, family was available during rounds Goals of therapy: Addressed, Patient is full code Nursing: concerns addressed. Disposition: Continue ICU care as patient's needs are being addressed Thom Sidhu has at least one organ system and is at risk for life threatening de terioration necessitating complex medical decision making and ongoing provision of ICU care. I have spent 36 minutes (excluding time spent performing or supervising any proc edures) providing and personally directing critical care services including: Eric Vaughan MD [phone] Date: 01/18/2021 * Roseline Arias, [employer] RADIO TECHNICIAN-WHEEL FITTER - 01/18/2021 7:52 AM CDT Neuro Critical Care Progress Note Thom Sidhu Admission Date: 01/16/2021 LOS: 2 days Full Code ASSESSMENT/PLAN Patient Active Problem List Diagnosis Date Noted Headache 01/17/2021 Hypokalemia 01/17/2021 SAH (subarachnoid hemorrhage) (HCC) 01/16/2021 Thom Sidhu is a 20 y.o. male with noPMH. On 01/16 hedrank an energy drink a ndwas lifting weights when he developed a headache. He returned hometook OTC ibuprofen and laid down for anap but laterwoke up vomiting and severe right sided headache. He went to an OSH without neurological deficits and CT head dem onstrated a SAH. He was given 1L of IVF, toradol, norflex and zofran prior to be ing transferred to [facility] for a higher level of care. Hospital and ICU course: 01/17: transferred from [facility]. Started on nimotop and keppra. ST AT CTA head W/WO contrast. DSA. 01/18: stable Neuro: Acute SAH, HH1, MFS1 - 01/17 CTA head: 1. No significant change in right cerebral subarachnoid hemorrhage, mainly withi n the right sylvian fissure. 2. 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 - 01/17 Cerebral angiogram negative for etiology of hemorrhage; plan for repeat Saturday (01/20) - Will continue to treat for possible aSAH - SBP < 140 - Na 142 - continue keppra and nimotop - Consider 1:1 fluid replacement - Neuro-ICU monitoring, [id number] - PT/OT Sedation/Pain Management: -PRNtylenol and oxycodone - PRN Xanax (UDS + benzos) - Assess for delirium daily Cardiac: - Continuous telemetry monitoring - SBP goal:< 140 - MAP goal > 65 - PRN labetalol & hydralazine - has not required Respiratory: - Stable on room air - Spo2 goal >95% - Implement RT Adult Assessment Protocol - Encourage IS Q1 while awake GI: N/V secondary to SAH - improved - Feeding:regular diet - PRN ondansetron -Neuro bowel regimen, ensure daily BM - Last BM: [employer] Heme: - Hgb 13.5, Plt 167 - SCDs only, begin chemoppx when cleared by NSG -Assess for coagulopathy, maintain platelets above 100k, INR <1.5 ID: COVID negative on arrival - WBC 4.1, afebrile -no fevers, no acute infectious concerns, no current abx -Aim for normothermia, Temp <38.3 celsius, normothermia protocol if febrile Renal: - BUN 22, Creat 1.23 - Trend renal function on daily BMP - Void spont - Monitor hourly I/O balance - Aim for normovolemia Endocrine: - SBG 100 - Trend glucose on daily BMP and PRN - Blood glucose goal 100-180mg/dl FEN: - Daily BMP, Mg, Phos, and iCal - IVF:SL - Magnesium goal >2.0, i-[place] goal > 1.0, Potassium goal >4.0 mEq/L - Critical Care Electrolyte Replacement Protocol Primary service:Neurosurgery Consults:Neuro Critical Care, Neuro IR DONTE Sidhu is a 20 y.o. male. Overnight Events: No new events noted. Patient up showering with am rounds, later seen and reported mild SOLANO resolved as well as nausea earlier that resolved. Reports no problem with tolerating breakfast. OBJECTIVE Vital Signs: Last Filed Vital Signs: 24 Hour Ra nge BP: 122/58 (01/18 700) Temp: 36.4 C (97.5 F) (01/18 0400) Pulse: 39 (01/18 700) Respirations: 16 PER MINUTE (01/18 700) SpO2: 98 % (01/18 700) BP: (91-124)/(41-90) Temp: [36.4 C (97.5 F)-37 C (98.6 F)] Pulse: [35-82] Respirations: [9 PER MINUTE-22 PER MINUTE] SpO2: [96 %-100 %] Intensity Pain Scale (Self Report): (not recorded) Vitals: 01/16/21 2356 Weight: 85.6 kg (188 lb 11.4 oz) Lines: Peripheral Line Drains: None Intake/Output Summary: (Last 24 hours) Intake/Output Summary (Last 24 hours) at 01/18/2021 0752 Last data filed at 01/17/2021 2100 Gross per 24 hour Intake 1730 ml Output 1600 ml Net 130 ml Physical Exam: Blood pressure 122/58, pulse (!) 39, temperature 36.4 C (97.5 F), height 177 .8 cm (70"), weight 85.6 kg (188 lb 11.4 oz), SpO2 98 %. [place] coma score: E: 4 - Opens eyes on own M: 6 - Follows simple motor commands V: 5 - Alert and oriented Neuro: Mental Status: A&Ox4 Cranial Nerves: Cranial nerves 2-12 INTACT. - Pupil exam: Size: 3 Reactivity: brisk Motor: RUE: Strength: 5/5; follows commands x 4 RLE: Strength: 5/5; LUE: Strength: 5/5; LLE: Strength: 5/5; Sensory: normal Coordination: intact Lungs: clear to auscultation bilaterally Pulmonary: Respiratory status: Stable Heart: regular rate and rhythm, S1, S2 normal, no murmur, click, rub or gallop Abdomen: soft, non-tender. Bowel sounds normal. No masses, no organomegaly Extremities: extremities normal, atraumatic, no cyanosis or edema Skin: Skin color, texture, turgor normal. No rashes or lesions Point of Care Testing: (Last 24 hours) Glucose: 100 (01/18/21 0440) Lab Review: Pertinent labs reviewed Radiology and Other Diagnostic Procedures Review: Pertinent radiologic and diag nostic procedures reviewed. I spent 40 minutes managing the care of this patient. Thom Sidhu is in critical condition being managed for a subarachnoid hemorrhage. Cares included: detailed neurologic and systems exam, medication review, laboratory data review and inte rpretation, electrolyte management, review of available imaging, DVT/PE prophyla xis review, diet review, activity review, and coordination of care with consulte d teams REEMA Beckman Date: 01/18/[phone] * Linda Brian APRN-NP - 01/18/2021 7:17 AM CDT Neurosurgery Progress Note Admission Date: 01/16/2021 LOS: 2 days Subjective: No acute events noted. Patient seen this morning with resident team. Visitor at bedside. Objective: Awake and alert States name, hospital, year correctly ZAMORA to command Strength grossly intact at bed level A/P: Thom Sidhu is a 20 y.o. male with SAH (subarachnoid hemorrhage) ([facility]) [I60 .9] Patient Active Problem List Diagnosis Date Noted Headache 01/17/2021 Hypokalemia 01/17/2021 SAH (subarachnoid hemorrhage) ([facility]) 01/16/2021 Neuro: Neurologically stable. Okay for Q2 neuro checkes >IR angio 01/17 negative for aneurysm, AVM, or dAVF >repeat angio Saturday 01/20 >continue Keppra and nimotop Pulmonary: RA CV: SBP<140 GI: Regular diet FEN: Maintain euvolemia. Na 142 ID: Afebrile, no leukocytosis Heme: Hgb 13.5, plt 167 Disposition/Family: Continue ICU care. PT/OT Prophylaxis: A)GI: PPI B) Lines: No C) Urinary Catheter: No D) Antibiotic Usage: No E) VTE: Mechanical prophylaxis; Sequential compression device; F) Restraints: Patient assessed for need for restraints. Please page [phone] with any questions. REEMA Almanzar Voalte me * Taylor Hendrix RN - 01/18/2021 7:13 AM CDT Overnight update: Patient heart rhythm appearing irregular, obtained EKG and not ified MELLY Whitfield. Patient bradycardic in the 40's-50's majority of the shift , occasionally sustaining in in the 30's, all other VSS/patient asymptomatic. Pr MELLY torrez notified, orders to notify provider if patient becomes symptomatic. * Gayatri Veronica, PT - 01/17/2021 1:20 PM CDT PHYSICAL THERAPY ASSESSMENT Name: Thom Sidhu : 2000 Age: 20 y. o. Admission Date: 01/16/2021 LOS: 1 day Mobility Patient Turn/Position: Supine Progressive Mobility Level: Walk laps Distance Walked (feet): 300 ft Level of Assistance: Stand by assistance Assistive Device: None Time Tolerated: 11-30 minutes Activity Limited By: Pain;Fatigue Subjective Significant hospital events: 20 y.o. male with a PMH ofwith no PMH. On 01/16 he drank an energy drink and was lifting weights when he developed a headache. He returned home took OTC ibuprofen and laid down for a nap but later woke up vomit ing and severe right sided headache. He went to an OSH without neurological defi cits and CT head demonstrated a SAH. He was given 1L of IVF, toradol, norflex an d zofran prior to being transferred to [facility] for a higher level of care. 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 ROM LE ROM: Bilateral;WFL Strength R LE WNL: Yes L LE WNL: Yes Posture/Neurological Head Control: Independent Posture: No Postural Deviations Bed Mobility/Transfer Bed Mobility: Supine to Sit: Standby Assist Bed Mobility: Sit to Supine: Standby Assist Comments: Tolerated sitting edge of bed independently. No dizziness Transfer Type: Sit to Stand Transfer: Assistance Level: To/From;Bed;Standby Assist Transfer: Assistive Device: None Transfers: Type Of Assistance: For Balance;For Safety Considerations End Of Activity Status: In Bed;Nursing Notified;Instructed Patient to Request As sist with Mobility;Instructed Patient to Use Call Light (bed alarm activated ) Gait Gait Distance: 300 feet Gait: Assistance Level: Standby Assist Gait: Assistive Device: None Gait: Descriptors: Pace: Slow;Normal step length;No balance loss Comments: Patient ambulated 300 feet with no device and standby assist. Slightly antalgic gait due to pain at groin puncture site. No loss fo balance. Activity Limited By: Complaint of Fatigue Activity/Exercise Sit Edge Of Bed: 3 minutes Sit Edge Of Bed Assist: Stand By Assist Stand At Bedside : 1 minutes Stand At Bedside Assist: Stand By Assist Education Persons Educated: Patient Patient Barriers To Learning: None Noted Teaching Methods: Verbal Instruction Patient Response: Verbalized Understanding Topics: Plan/Goals of PT Interventions;Mobility Progression;Safety Awareness;Imp ortance of Increasing Activity;Ambulate With Nursing;Ambulate with Family;Recomm end Continued Therapy Assessment/Progress Impaired Mobility Due To: Medical Status Limitation Assessment/Progress: Should Improve w/ Continued PT AM-PAC 6 Clicks Basic Mobility Inpatient Turning from your back to your side while in a flat bed without using bed rails: None Moving from lying on your back to sitting on the side of a flatbed without using bedrails : None Moving to and from a bed to a chair (including a wheelchair): None Standing up from a chair using your arms (e.g. wheelchair, or bedside chair): No ne To walk in hospital room: A Little Climbing 3-5 steps with a railing: A Little Raw Score: 22 Standardized (T-scale) Score: 47.4 Basic Mobility CMS 0-100%: 25.02 CMS G Code Modifier for Basic Mobility: CJ Goals Goal Formulation: With Patient Time For Goal Achievement: 2 days, To, 4 days Patient Will Go Supine To/From Sit: Independently Patient Will Transfer Sit to Stand: Independently Patient Will Ambulate: Greater than 200 Feet, w/ No Device, Independently Patient Will Go Up / Down Stairs: 6-10 Stairs, Independently Plan Treatment Interventions: Balance Activities;Endurance Training Plan Frequency: 1-2 Days per Week PT Plan for Next Visit: Increase ambulation distance. Test balance. Monitor for neuro status change. Triston perez d/c after next visit PT Discharge Recommendations Recommendation: Home/prior living situation Patient Currently Requires Equipment: None Therapist Gayatri Veronica, PT Date 01/17/2021 * Nidhi Lackey, OT - 01/17/2021 1:20 PM CDT OCCUPATIONAL THERAPY ASSESSMENT/DISCHARGE NOTE Name: Thom Sidhu : 2000 Age: 20 y. o. Admission Date: 01/16/2021 LOS: 1 day Mobility Patient Turn/Position: Supine Progressive Mobility Level: Walk laps Distance Walked (feet): 300 ft Level of Assistance: Stand by assistance Assistive Device: None Time Tolerated: 11-30 minutes Activity Limited By: Pain;Fatigue Subjective Pertinent Dx per Physician: y.o. male with a PMH ofwith no PMH. On 01/16 he dran k an energy drink and was lifting weights when he developed a headache. He retur rosemary home took OTC ibuprofen and laid down for a nap but later woke up vomiting a nd severe right sided headache. He went to an OSH without neurological deficits and CT head demonstrated a SAH. 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 Prior to admissi on pt was independent with ADLs and mobility. Vision Current Vision: Does Not Wear Glasses Comment: No vision deficits. ADL's Where Assessed: In Bathroom Grooming Assist: Independent LE Dressing Assist: Independent Comment: Pt independent with all ADLs and mobility. ADL Mobility Bed Mobility: Supine to Sit: Independent Bed Mobility: Sit to Supine: Independent Transfer: Assistance Level: To/from;Bed;Independent Transfer: Assistive Device: None Transfer: Type of Assistance: For safety considerations End of Activity Status: In bed;Instructed patient to use call light Sitting Balance: Independent Standing Balance: Independent Gait Distance: 300 feet Gait: Assistance Level: Independent Gait: Assistive Device: None Gait Comments: Assist for line management only. Activity Tolerance Endurance: 5/5 Endurance Does Not Limit Participation in Activity Cognition Overall Cognitive Status: WFL to Adequately Complete Self Care Tasks Safely Memory: WFL Adequate to Recall Day to Day Activities Orientation: Alert & Oriented x4 Attention: Awake/Alert UE PROM Overall BUE PROM WNL: Yes UE AROM Overall BUE AROM WNL: Yes Coordination: Adequate to Complete ADLs Grasp: Bilateral Grasp Functional for Activity Sensory Overall Sensory: Pt Perceives Pressure in Both UEs in Gross Exam UE Strength / Tone Overall Strength / Tone: WFL Able to Perform ADL Tasks Overall Strength < 4/5: No Education Persons Educated: Patient Barriers To Learning: None Noted Teaching Methods: Verbal Instruction Patient Response: Verbalized Understanding Topics: Role of OT, Goals for Therapy;Home safety Goal Formulation: With Patient Assessment Prognosis: Good Goal Formulation: Patient No Skilled OT: At Baseline Function;Independent with ADLs AM-PAC 6 Clicks Daily Activity Inpatient Putting on and taking off regular lower body clothes?: None Bathing (Including washing, rinsing, drying): None Toileting, which includes using toilet, bedpan, or urinal: None Putting on and taking off regular upper body clothing: None Taking care of personal grooming such as brushing teeth: None Eating meals?: None Daily Activity Raw Score: 24 Standardized (t-scale) score: 57.54 CMS 0-100% Score: 0 CMS G Code Modifier: CH Plan Progress: Discontinue OT;No Further Limitations OT Frequency: No Further Treatment OT Discharge Recommendations Recommendation: Home/prior living situation;No further OT recommended at this [facility] Therapist: JOSHUA Ramos/Mayra [id number] Date: 01/17/2021 * Eliceo Ruvalcaba RN - 01/17/2021 8:53 AM CDT Sedation physician present in room. Recent vitals and patient condition reviewed between sedating physician and nurse. Reassessment completed. Determination made to proceed with planned sedation. * Kourtney Cifuentes APRN-RASHEED - 01/17/2021 7:11 AM CDT Neurosurgery Progress Note Admission Date: 01/16/2021 LOS: 1 day Subjective: No acute events noted. States headache improved this am. Objective: Awake and alert Conversationally intact Oriented to person, place and time Follows commands Antigravity strength in all extremities A/P: Thom Sidhu is a 20 y.o. 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 Please page [phone] with any questions. REEMA Moore Voalte me * Sussy Love RN - 01/17/2021 6:28 AM CDT Patient transported to CT with this RN. Patient tolerated scan well and returned to unit at 0320. VSS. * Catarina Obrien PA-C - 01/17/2021 6:11 AM CDT Neuro Critical Care Progress Note Thom Sidhu Admission Date: 01/16/2021 LOS: 1 day Full Code ASSESSMENT/PLAN Patient Active Problem List Diagnosis Date Noted SAH (subarachnoid hemorrhage) (HCC) 01/16/2021 Thom Sidhu is a 20 y.o. male with a PMH ofwith no PMH. On 01/16 he drank an bea rgy drink and was lifting weights when he developed a headache. He returned home took OTC ibuprofen and laid down for a nap but later woke up vomiting and severe right sided headache. He went to an OSH without neurological deficits and CT h ead demonstrated a SAH. He was given 1L of IVF, toradol, norflex and zofran prio r to being transferred to [facility] for a higher level of care. Hospital and ICU course: 01/17: transferred from [facility]. Started on nimotop and keppra. ST AT CTA head W/WO contrast. DSA. Neuro: Acute SAH, HH1, MFS1 - possible 1-2mm saccular anz on CTA, however underwent DSA on 01/17, no aneurys m/AVM/dAFV found, therefore recommend repeat angio later this week (planning for Saturday) - will continue to treat for possible aSAH - continue keppra and nimotop - Consider 1:1 fluid replacement - will discuss if TCDs needed - Neuro-ICU monitoring, neurochecks Q1hr - PT/OT Sedation/Pain Management: - PRN tylenol and oxycodone - Assess for delirium daily Cardiac: - Continuous telemetry monitoring - SBP goal: < 140 - MAP goal > 65 - PRN labetalol & hydralazine - has not required Respiratory: - Stable on room air - Spo2 goal >95% - Implement RT Adult Assessment Protocol - Encourage IS Q1 while awake GI: N/V secondary to SAH - improved - Feeding: regular diet post procedure - PRN ondansetron - Neuro bowel regimen, ensure daily BM - Last BM: [employer] Heme: - daily CBC - SCDs only, begin chemoppx when cleared by NSG - Assess for coagulopathy, maintain platelets above 100k, INR <1.5 ID: COVID negative on arrival - Trend WBC on daily BMP - no fevers, no acute infectious concerns, no current abx - Aim for normothermia, Temp <38.3 celsius, normothermia protocol if febrile Renal: - Trend renal function on daily BMP - Monitor hourly I/O balance - Aim for normovolemia Endocrine: - Trend glucose on daily BMP and PRN - Blood glucose goal 100-180mg/dl FEN: CMP, Mg, Phos, and iCal in process - Daily BMP, Mg, Phos, and iCal - IVF: SL - Magnesium goal >2.0, i-Barrington goal > 1.0, Potassium goal >4.0 mEq/L - Plan to initiate Critical Care Electrolyte Replacement Protocol pending renal function Primary service: Neurosurgery Consults: Neuro Critical Care DONTE Tomas Nahum is a 20 y.o. male. Overnight Events: see admission note. Patient f eels well post procedure. Family at bedside. OBJECTIVE Vital Signs: Last Filed Vital Signs: 24 Hour Ra nge BP: 106/59 (01/17 600) Temp: 36.5 C (97.7 F) (01/18 400) Pulse: 51 (01/17 600) Respirations: 13 PER MINUTE (01/17 600) SpO2: 97 % (01/17 600) Height: 177.8 cm (70") (01/17 2356) Weight: 85.6 kg (188 lb 11.4 oz) (01/17 2356) BP: (95-130)/(52-76) Temp: [36.5 C (97.7 F)-37.1 C (98.8 F)] Pulse: [43-75] Respirations: [12 PER MINUTE-19 PER MINUTE] SpO2: [97 %-100 %] Intensity Pain Scale (Self Report): (not recorded) Vitals: 01/16/212355 Weight: 85.6 kg (188 lb 11.4 oz) Physical Exam: Blood pressure 106/59, pulse 51, temperature 36.5 C (97.7 F), height 177.8 c m (70"), weight 85.6 kg (188 lb 11.4 oz), SpO2 97 %. Chelita coma score: E: 4 - Opens eyes on own M: 6 - Follows simple motor commands V: 5 - Alert and oriented Neuro: Mental Status: A/Ox4, speech clear, follows all commands Cranial Nerves: Cranial nerves 2-12 INTACT by inspection. - Pupil exam: Size: 3 Reactivity: brisk - EOM: intact Motor: RUE: Strength: 5/5 RLE: Strength: 5/5 LUE: Strength: 5/5 LLE: Strength: 5/5 Sensory: intact to light touch x 4 Lungs: clear to auscultation bilaterally Pulmonary: Respiratory status: Stable Heart: regular rate and rhythm on monitor Abdomen: soft, non-tender. Bowel sounds normal. No masses, no organomegaly Extremities: extremities normal, atraumatic, no cyanosis or edema Skin: Skin color, texture, turgor normal. No rashes or lesions Point of Care Testing: (Last 24 hours) Glucose: (!) 101 (01/17/21 0420) Lab Review: Pertinent labs reviewed Radiology and Other Diagnostic Procedures Review: Pertinent radiologic and diag nostic procedures reviewed. I spent 54 minutes managing the care of this patient. Thom Sidhu is in critical condition with SAH. Cares included: detailed neurologic and systems exam, medic ation review, laboratory data review and interpretation, electrolyte management, review of available imaging, DVT/PE prophylaxis review, diet review, activity r kattw, and coordination of care with consulted teams Catarina Obrien PA-C Date: 01/17/[phone] documented in this encounter H&P Notes * Ganga Kelly MD - 01/17/2021 12:11 AM CDT Neurosurgery History and Physical Examination Thom Sidhu Admission Date: 01/16/2021 Assessment/Plan: Adi is a 20-year-old male with no PMH, not on [employer] anticoagulation, who pres ented as a transfer from [facility] with severe right-sided headaches after lifting weights. He is neuro intact. Admission labs pending. CT head at outside hospital review ed which demonstrates thin focal subarachnoid hemorrhage tracking within the rig ht sylvian. There is no resultant midline shift, hydrocephalus, or intraventric ular hemorrhage. HH 1, Modified Feliciano 1 on admission. - Admit to neuro ICU; critical care team consulted - Q1 hour neurochecks - CTA on admission - Stat Labs - Maintain NPO for cerebral angiogram AM - 4g Amicar load, followed by 1g/h amicar gtt; plan to stop 4 hours prior to ang iogram (399) - SBP < 140 - Nimotop 60q4, keppra 500 mg BID prophylaxis - Patient and plan discussed with neurosurgery senior, Dr. Ramirez. Will discuss with Dr. Bolivar in the AM. - Please call [phone] with any changes in neurologic exam, questions, or concerns. Ganga Kelly MD Voalte Me Chief Complaint: Subarachnoid hemorrhage History of Present Illness: Thom Sidhu is a 20 y.o. male with no past medical history, not [facility] who [facility] as a transfer from [facility] with subarachnoid hemorrhage. The patient reports he was then in usual state of health until 4 PM 01/16. The patient was lifting weights at this time when he started to develop right-sided headaches. He originally thought nothing of it, went home, took some over-the-c ounter ibuprofen and took a nap. However, on waking he was nauseous and vomitin g. He went to [facility] ED for further evaluation. He was without neurologic deficit at this time. CT head was done which demonstrated thin right focal tem poral subarachnoid hemorrhage. He was given 1 L of fluids, Toradol, Norflex and Zofran prior to transfer to in stable condition. On arrival, the patient st ates his headache is 8/10, but is relieved with pain medication. He currently d enies any nausea and vomiting but does report prior vomiting episode. He denies light sensitivity, but does endorse some neck stiffness. He otherwise denies c onfusion, vision changes, weakness, sensory deficit, bowel or bladder incontinen ce. 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 Medications: Not on [employer] medications or Anticoagulation Review of Systems: Full 10 point review of systems negative except for HPI Physical Exam: Vital Signs: Last Filed In 24 Hours Vital Signs: 24 Hour Range BP: 130/70 (01/17 2356) Temp: 37.1 C (98.8 F) (01/17 2356) Pulse: 56 (01/17 2356) Respirations: 19 PER MINUTE (01/17 2356) SpO2: 100 % (01/17 2356) Height: 177.8 cm (70") (01/17 2356) BP: (130)/(70) Temp: [37.1 C (98.8 F)] Pulse: [56] Respirations: [19 PER MINUTE] SpO2: [100 %] General appearance: No acute distress Lungs: symmetric chest rise, non labored breathing Heart: Regular rate and rhythm Gastrointestinal: Soft, non-distended Musculoskeletal: mild nuchal tendeness Skin: No obvious skin lesion or rash Psychiatric: Normal affect Neurologic Exam: Mental Status: Awake, alert and oriented x 4, fluent speech, normal cognition Pupils: Pupils equal round and reactive to light; no light sensitivity Cranial Nerves: CN II-XII individually tested and found to be intact, gag not te sted Vision: within normal to confrontation Motor: AA EF EE WF WE FF FE FA G HF KF KE DF PF EHL Left 5 5 5 5 5 5 5 5 5 5 5 5 5 5 5 Right 5 5 5 5 5 5 5 5 5 5 5 5 5 5 5 Normal muscle bulk and tone No pronator drift Sensation: Sensation intact to light touch throughout Deep Tendon Reflexes: Pa Left 2 Right 2 Plantar responses toes downgoing bilaterally No clonus bilaterally No foreman bilaterally Gait: deferred Cerebellar: No dysmetria on FTN Lab Tests: Hematology: Lab Results Component Value Date HGB 13.8 01/17/2021 HCT 39.7 01/17/2021 PLTCT 163 01/17/2021 WBC 6.0 01/17/2021 NEUT 73 01/17/2021 ANC 4.35 01/17/2021 ALC 1.21 01/17/2021 AGAPITO 7 01/17/2021 AMC 0.41 01/17/2021 ABC 0.03 01/17/2021 MCV 84.4 01/17/2021 MCHC 34.8 01/17/2021 MPV 8.4 01/17/2021 RDW 12.8 01/17/2021 General Chemistry: No results found for: NA, K, CL, CO2, BUN, CR, GLU, OBSCA, CA , MG, PO4, FREEPHENY General Chemistry: No results found for: GAP, KETONES, ALBUMIN, LACTIC, TOTBILI, DBILI, BILIIND, TOTBILCB, TOTPROT, LIPASE, LINDA, AST, ALT, ALKPHOS, LDH Radiology and other Diagnostics Review: Pertinent imaging reviewed. CT Head from OSH reviewed which demonstrates thin focal SAH along the right sylv hammad fissure in the R MCA territory. There is no hydrocephalus, midline shift, or intraventricular hemorrhage. Associated attestation - Mert Bolivar MD - 01/17/2021 7:57 PM CDT ATTESTATION I personally performed the sanchez portions of the E/M visit, discussed case with re sident and concur with resident documentation of history, physical exam, assessm ent, and treatment plan unless otherwise noted. Right sylvian SAH. Angio reviewed, no obvious aneurysm identified. Will repeat A ngio on Saturday. Staff name: Mert Bolivar MD Date: 01/17/2021 documented in this encounter Consult Notes * Yoel Mendoza, [employer] RADIO TECHNICIAN-WHEEL FITTER - 01/19/2021 1:32 PM CDT Associated Order(s): CONSULT INTERVENTIONAL RADIOLOGY PHYSICIAN A full consult has been completed regarding this patient during this admission previously. Therefore this consult will only link to an updated pre-procedure H& P. For details of patient assessment, please see previous IR consult. Thank you. IR Pre-Procedure History and Physical/Sedation Plan Procedure Date: 01/19/2021 Planned Procedure(s): Cerebral arteriogram Procedural code status: Full Code Indication: Repeat angio per Dr. Sparks Chief Complaint: SAH History of Present Illness: Thom Sidhu is a 20 y.o. male with a history as list ed below who presents today for procedure. Patient Active Problem List Diagnosis Date Noted Leukopenia 01/19/2021 Constipation 01/18/2021 Headache 01/17/2021 SAH (subarachnoid hemorrhage) (HCC) 01/16/2021 History reviewed. No pertinent past medical history. No past surgical history on file. Social History Tobacco Use Smoking status: Not on file Substance Use Topics Alcohol use: Not on file No family history on file. Medications Prior to Admission Medication Sig Dispense Refill Last Dose famciclovir (FAMVIR) 500 mg tablet Take 500 mg by mouth every 8 hours. 7d supply picked up in 05/2020 ibuprofen (ADVIL) 200 mg tablet Take 200 mg by mouth every 6 hours as needed for Pain (takes a couple times a week). Take with food. No Known Allergies Review of Systems A comprehensive review of systems was negative. Previous Personal Anesthetic/Sedation History: Denies adverse events related to sedation/anesthesia. Previous Family Anesthetic/Sedation History: Denies adverse events related to se dation/anesthesia. Physical Exam: Vital Signs: Last Filed In 24 Hours Vital Signs: 24 Hour Range BP: 124/72 (01/19 1300) Temp: 36.4 C (97.6 F) (01/19 1200) Pulse: 51 (01/19 1300) Respirations: 20 PER MINUTE (01/19 1300) SpO2: 100 % (01/19 1300) SpO2 Pulse: 56 (01/19 1300) BP: (85-160)/(50-86) Temp: [36.4 C (97.6 F)-36.9 C (98.4 F)] Pulse: [37-71] Respirations: [11 PER MINUTE-22 PER MINUTE] SpO2: [95 %-100 %] General appearance: Alert and no distress noted. Neurologic: Grossly normal. Lungs: Non labored at rest. Heart: Regular rate and rhythm Abdomen: Non-distended Airway: airway assessment performed Mallampati I (soft palate, uvula, fauces, t onsillar pillars visible) Head and Neck: no abnormalities noted Mouth: no abnormalities noted NPO status: Acceptable Status: N/A Anesthesia Classification: ASA I (A normal healthy patient) Pre-operative anxiolysis Plan: Midazolam Sedation/Medication Plan: Fentanyl, Lidocaine and Midazolam Discussion/Reviews: Physician has discussed risks and alternatives of this type of sedation and above planned procedures with patient Lab/Radiology/Other Diagnostic Tests: Labs: 24-hour labs: Results for orders placed or performed during the hospital encounter of 01/16/21 (from the past 24 hour(s)) IONIZED CALCIUM Collection Time: 01/19/21 3:59 AM Result Value Ref Range Ionized Calcium 1.20 1.0 - 1.3 MMOL/L BASIC METABOLIC PANEL Collection Time: 01/19/21 4:00 AM Result Value Ref Range Sodium 141 137 - 147 MMOL/L Potassium 3.7 3.5 - 5.1 MMOL/L Chloride 105 98 - 110 MMOL/L CO2 26 21 - 30 MMOL/L Anion Gap 10 3 - 12 Glucose 99 70 - 100 MG/DL Blood Urea Nitrogen 20 7 - 25 MG/DL Creatinine 1.16 0.4 - 1.24 MG/DL Calcium 8.8 8.5 - 10.6 MG/DL eGFR Non >60 >60 mL/min eGFR >60 >60 mL/min CBC AND DIFF Collection Time: 01/19/21 4:00 AM Result Value Ref Range White Blood Cells 3.8 (L) 4.5 - 11.0 K/UL RBC 4.58 4.4 - 5.5 M/UL Hemoglobin 13.6 13.5 - 16.5 GM/DL Hematocrit 38.8 (L) 40 - 50 % MCV 84.5 80 - 100 FL MCH 29.7 26 - 34 PG MCHC 35.2 32.0 - 36.0 G/DL RDW 12.7 11 - 15 % Platelet Count 152 150 - 400 K/UL MPV 8.4 7 - 11 FL Neutrophils 37 (L) 41 - 77 % Lymphocytes 48 (H) 24 - 44 % Monocytes 10 4 - 12 % Eosinophils 4 0 - 5 % Basophils 1 0 - 2 % Absolute Neutrophil Count 1.43 (L) 1.8 - 7.0 K/UL Absolute Lymph Count 1.87 1.0 - 4.8 K/UL Absolute Monocyte Count 0.36 0 - 0.80 K/UL Absolute Eosinophil Count 0.13 0 - 0.45 K/UL Absolute Basophil Count 0.02 0 - 0.20 K/UL MAGNESIUM Collection Time: 01/19/21 4:00 AM Result Value Ref Range Magnesium 1.9 1.6 - 2.6 mg/dL REEMA Diaz Pager [phone] * Yoel Mendoza APRN-NP - 01/17/2021 7:44 AM CDT Associated Order(s): CONSULT INTERVENTIONAL RADIOLOGY PHYSICIAN Interventional Radiology Consult Note with Pre-procedural History and Physical Admission Date: 01/16/2021 LOS: 1 day Principal Problem: SAH (subarachnoid hemorrhage) (HCC) Reason for consult: Evaluate for arteriogram in setting of SAH. Assessment: - Admitted with new onset SAH after lifting weights and drinking an energy drink , no PMH otherwise in very good health. - Review of imaging significant for known right cerebral subarachnoid hemorrhage , mainly within the right sylvian fissure and small 2 mm right M1 MCA segment saccular an eurysm projecting inferiorly. There is no evidence of vasospasm and no additiona l aneurysm or AVM is identified. - A/O, NAD, endorses no complaints or neurologic deficits during exam. - Labs, medications, and allergies meet procedural protocol. - Procedural code status: Full Code - Platelet Count Date Value Ref Range Status 01/17/2021 152 150 - 400 K/UL Final ; INR Date Value Ref Range Status 01/17/2021 1.0 0.8 - 1.2 Final Plan: - This case has been reviewed and added onto the [facility] IR schedule for this morning . - For sedation purposes, please keep NPO prior to procedure. May take PO medicat ions with sips of water. We appreciate being able to participate in this patient's care. Please page with any questions or concerns. Yoel Mendoza APRN-WHEEL FITTER Pgr [phone] IR Team Pager [phone] (After-hours and Weekends) Procedure: Diagnostic cerebral arteriogram IR Pre Procedure Notes: Direct Chief Complaint: SAH Previous Anesthetic/Sedation History: Reviewed. History of present illness: Thom Sidhu is a 20 y.o. male patient with PMH as described above in brief. IR c onsulted for angio. See ROS below for current symptoms Review of Systems Constitutional: negative Ears, nose, mouth, throat, and face: negative Respiratory: negative Cardiovascular: negative Gastrointestinal: negative Musculoskeletal:negative Neurological: negative Behavioral/Psych: negative Medications Scheduled Meds:docusate (COLACE) capsule 100 mg, 100 mg, Oral, BID levETIRAcetam (KEPPRA) tablet 500 mg, 500 mg, Oral, BID milk of magnesia (CONC) oral suspension 10 mL, 10 mL, Oral, QDAY niMODipine (NIMOTOP) capsule 60 mg, 60 mg, Oral, Q4H Or nimodipine(#) oral solution 60 mg, 60 mg, Feeding Tube, Q4H senna/docusate (SENOKOT-S) tablet 1 tablet, 1 tablet, Oral, BID Continuous Infusions: PRN and Respiratory Meds:acetaminophen Q4H PRN, calcium gluconate IV PRN (On Ca ll from Rx) AND Ionized Calcium PRN AND Notify Physician Ongoing, hydrAL AZINE Q6H PRN, labetalol (NORMODYNE; TRANDATE) injection Q15 MIN PRN, magnesium sulfate PRN AND Magnesium PRN AND Notify Physician Ongoing, ondansetron (ZOFRAN) IV Q6H PRN, oxyCODONE Q4H PRN, potassium chloride SR PRN OR potassi um chloride PRN OR potassium chloride in water PRN Objective Vital Signs: Last Filed Vital Signs: 24 Seamus r Range BP: 106/59 (01/17 600) Temp: 36.5 C (97.7 F) (01/18 400) Pulse: 51 (01/17 600) Respirations: 13 PER MINUTE (01/17 600) SpO2: 97 % (01/17 600) SpO2 Pulse: 50 (01/17 600) Height: 177.8 cm (70") (01/17 2356) BP: (95-130)/(52-76) Temp: [36.5 C (97.7 F)-37.1 C (98.8 F)] Pulse: [43-75] Respirations: [12 PER MINUTE-19 PER MINUTE] SpO2: [97 %-100 %] Vitals: 01/16/212355 Weight: 85.6 kg (188 lb 11.4 oz) Intake/Output Summary: (Last 24 hours) Intake/Output Summary (Last 24 hours) at 01/17/2021 0745 Last data filed at 01/17/2021 0400 Gross per 24 hour Intake 266 ml Output 650 ml Net -384 ml Physical Exam General appearance: alert and no distress appreciable Neurologic: Grossly normal, at baseline Lungs: Nonlabored with normal effort Abdomen: soft, non-tender. Extremities: extremities normal, atraumatic, no cyanosis or edema Airway: airway assessment performed Mallampati I (soft palate, uvula, fauces, tonsillar pillars visible) Anesthesia Classification: ASA I (A normal healthy patient) Pre procedure anxiolysis plan: Midazolam Intra-procedural Sedation/Medication Plan: Fentanyl, Lidocaine and Midazolam Personal history of sedation complications: Denies adverse event. Family history of sedation complications: Denies adverse event. Medications for Reversal: Naloxone and Flumazenil Discussion/Reviews: Physician has discussed risks and alternatives of this type of sedation and above planned procedures with patient and multiple family membe rs NPO Status: Acceptable Status: N/A Lab/Radiology/Other Diagnostic Tests: Labs: 24-hour labs: Results for orders placed or performed during the hospital encounter of 01/16/21 (from the past 24 hour(s)) COVID-19 (SARS-COV-2) PCR Collection Time: 01/17/21 12:02 AM Specimen: Nasopharyngeal; Flocked Swab Result Value Ref Range COVID-19 (SARS-CoV-2) PCR Source FLOCKED SWAB NASOPHARYNGEAL COVID-19 (SARS-CoV-2) PCR NOT DETECTED DN-NOT DETECTED CBC AND DIFF Collection Time: 01/17/21 12:04 AM Result Value Ref Range White Blood Cells 6.0 4.5 - 11.0 K/UL RBC 4.71 4.4 - 5.5 M/UL Hemoglobin 13.8 13.5 - 16.5 GM/DL Hematocrit 39.7 (L) 40 - 50 % MCV 84.4 80 - 100 FL MCH 29.4 26 - 34 PG MCHC 34.8 32.0 - 36.0 G/DL RDW 12.8 11 - 15 % Platelet Count 163 150 - 400 K/UL MPV 8.4 7 - 11 FL Neutrophils 73 41 - 77 % Lymphocytes 20 (L) 24 - 44 % Monocytes 7 4 - 12 % Eosinophils 0 0 - 5 % Basophils 0 0 - 2 % Absolute Neutrophil Count 4.35 1.8 - 7.0 K/UL Absolute Lymph Count 1.21 1.0 - 4.8 K/UL Absolute Monocyte Count 0.41 0 - 0.80 K/UL Absolute Eosinophil Count 0.02 0 - 0.45 K/UL Absolute Basophil Count 0.03 0 - 0.20 K/UL PROTIME INR (PT) Collection Time: 01/17/21 12:04 AM Result Value Ref Range INR 1.0 0.8 - 1.2 PTT (APTT) Collection Time: 01/17/21 12:04 AM Result Value Ref Range APTT 23.8 (L) 24.0 - 36.5 SEC COMPREHENSIVE METABOLIC PANEL Collection Time: 01/17/21 12:04 AM Result Value Ref Range Sodium 138 137 - 147 MMOL/L Potassium 3.7 3.5 - 5.1 MMOL/L Chloride 103 98 - 110 MMOL/L Glucose 101 (H) 70 - 100 MG/DL Blood Urea Nitrogen 21 7 - 25 MG/DL Creatinine 1.23 0.4 - 1.24 MG/DL Calcium 9.5 8.5 - 10.6 MG/DL Total Protein 7.0 6.0 - 8.0 G/DL Total Bilirubin 0.9 0.3 - 1.2 MG/DL Albumin 4.8 3.5 - 5.0 G/DL Alk Phosphatase 58 25 - 110 U/L AST (SGOT) 20 7 - 40 U/L CO2 25 21 - 30 MMOL/L ALT (SGPT) 18 7 - 56 U/L Anion Gap 10 3 - 12 eGFR Non >60 >60 mL/min eGFR >60 >60 mL/min MAGNESIUM Collection Time: 01/17/21 12:04 AM Result Value Ref Range Magnesium 1.8 1.6 - 2.6 mg/dL PHOSPHORUS Collection Time: 01/17/21 12:04 AM Result Value Ref Range Phosphorus 3.4 2.0 - 4.5 MG/DL BASIC METABOLIC PANEL Collection Time: 01/17/21 4:20 AM Result Value Ref Range Sodium 139 137 - 147 MMOL/L Potassium 3.4 (L) 3.5 - 5.1 MMOL/L Chloride 104 98 - 110 MMOL/L CO2 24 21 - 30 MMOL/L Anion Gap 11 3 - 12 Glucose 101 (H) 70 - 100 MG/DL Blood Urea Nitrogen 19 7 - 25 MG/DL Creatinine 1.19 0.4 - 1.24 MG/DL Calcium 9.2 8.5 - 10.6 MG/DL eGFR Non >60 >60 mL/min eGFR >60 >60 mL/min CBC AND DIFF Collection Time: 01/17/21 4:20 AM Result Value Ref Range White Blood Cells 4.6 4.5 - 11.0 K/UL RBC 4.50 4.4 - 5.5 M/UL Hemoglobin 13.5 13.5 - 16.5 GM/DL Hematocrit 37.9 (L) 40 - 50 % MCV 84.2 80 - 100 FL MCH 30.0 26 - 34 PG MCHC 35.6 32.0 - 36.0 G/DL RDW 12.6 11 - 15 % Platelet Count 152 150 - 400 K/UL MPV 8.3 7 - 11 FL Neutrophils 55 41 - 77 % Lymphocytes 34 24 - 44 % Monocytes 10 4 - 12 % Eosinophils 0 0 - 5 % Basophils 1 0 - 2 % Absolute Neutrophil Count 2.50 1.8 - 7.0 K/UL Absolute Lymph Count 1.56 1.0 - 4.8 K/UL Absolute Monocyte Count 0.47 0 - 0.80 K/UL Absolute Eosinophil Count 0.02 0 - 0.45 K/UL Absolute Basophil Count 0.03 0 - 0.20 K/UL Radiology: Reviewed. * Gaye Martin, MELLY-WHEEL FITTER - 01/16/2021 10:02 PM CDT Associated Order(s): CONSULT NEURO CRITICAL CARE PHYSICIAN Neuro Critical Care History and Physical Note Thom Sidhu Admission Date: 01/16/2021 LOS: 1 day Full Code ASSESSMENT/PLAN Patient Active Problem List Diagnosis Date Noted SAH (subarachnoid hemorrhage) (HCC) 01/16/2021 Thom Sidhu is a 20 y.o. male with no PMH. On 01/16 he drank an energy drink and was lifting weights when he developed a headache. He returned home took OTC ibu profen and laid down for a nap but later woke up vomiting and severe right sided headache. He went to an OSH without neurological deficits and CT head demonstra khushboo a SAH. He was given 1L of IVF, toradol, norflex and zofran prior to being tr ansferred to [facility] for a higher level of care. Hospital and ICU course: 01/17: transferred from [facility]. Started on nimotop and keppra. ST AT CTA head W/WO contrast. Neuro: Acute SAH Islas and Ashraf Grade (on admission): 1 Modified Feliciano Grade (on admission): 1 Evidence of hydrocephalus: no EVD at: n/a Sodium Goal: 135-145 - Nimodipine for vasospasm prophylaxis? yes - Consider 1:1 fluid replacement - TCDs Daily - Cognitive impairment suspected? No - STAT CTA head WO/W contrast - Keppra 500mg BID - Neuro-ICU monitoring, neurochecks Q1hr - PT/OT Sedation/Pain Management: - PRN tylenol and oxycodone - Assess for delirium daily Cardiac: - EKG on arrival - Continuous telemetry monitoring - VS Q1hr minimal - SBP goal: < 140 - MAP goal > 65 - PRN labetalol & hydralazine Respiratory: - Stable on room air - Spo2 goal >95% - Implement RT Adult Assessment Protocol - Encourage IS Q1 while awake GI: N/V secondary to SAH - Feeding: NPO pending bedside swallow eval and primary team plan - PRN ondansetron - Neuro bowel regimen, ensure daily BM - Last BM: [employer]IST Heme: CBCD, INR and aPTT in process - Daily CBCD - VTE prophylaxis: Pharmacological prophylaxis; Contraindication: Active bleedi ng; Cerebral hemorrhage and Mechanical prophylaxis; Sequential compression luisa ce - Assess for coagulopathy, maintain platelets above 100k, INR <1.5 ID: WBC and COVID in process - Trend WBC on daily BMP - Afebrile on arrival - Aim for normothermia, Temp <38.3 celsius, normothermia protocol if febrile Renal: BUN/Cr in process; BUN 24 and Cr 1.14 at OSH - Trend renal function on daily BMP - Monitor hourly I/O balance - Aim for normovolemia Endocrine: Glucose in process - Trend glucose on daily BMP and PRN - Blood glucose goal 100-180mg/dl FEN: CMP, Mg, Phos, and iCal in process - Daily BMP, Mg, Phos, and iCal - IVF: s/p 1L NS from OSH - Magnesium goal >2.0, i-[place] goal > 1.0, Potassium goal >4.0 mEq/L - Plan to initiate Critical Care Electrolyte Replacement Protocol pending renal function Prophylaxis Review: A) GI: n/a B) Lines: No C) Urinary Catheter: No D) Antibiotic Usage: No E) VTE: Pharmacological prophylaxis; Contraindication: Active bleeding; Cerebra l hemorrhage and Mechanical prophylaxis; Sequential compression device F) Isolation: rule out covid G)Seizures: see above I) Restraints: Patient assessed for need for restraints. Disposition/Family: family not at bedside; plan to update with primary team up on arrival Primary service: Neurosurgery Consults: Neuro Critical Care SUBJECTIVE Chief Complaint: SAH History of Present Illness: Thom Sidhu is a 20 y.o. male with no PMH. On 01/16 he drank an energy drank and was lifting weights when he developed a headache. H e returned home took OTC ibuprofen and laid down for a nap but later woke up vom iting and severe right sided headache. He went to an OSH without neurological de ficits and CT head demonstrated a SAH. He was given 1L of IVF, toradol, norflex and zofran prior to being transferred to [facility] for a higher level of care. History reviewed. No pertinent past medical history. No past surgical history on file. unsure of family history; possibly a grandfather with brain aneurysm. will follo w up with father once he is available Social History Social History Narrative Not on file Code Status: Full Code Decision Maker: self Immunizations (includes history and patient reported): There is no immunization history on file for this patient. Allergies: Patient has no known allergies. No medications prior to admission. Review of Systems: Review obtained from patient and OSH records. OBJECTIVE Vital Signs: Last Filed Vital Signs: 24 Hour Ra nge BP: 130/70 (01/17 2356) Temp: 37.1 C (98.8 F) (01/17 2356) Pulse: 56 (01/17 2356) Respirations: 19 PER MINUTE (01/17 2356) SpO2: 100 % (01/17 2356) Height: 177.8 cm (70") (01/17 2356) Weight: 85.6 kg (188 lb 11.4 oz) (10/11 2356) BP: (130)/(70) Temp: [37.1 C (98.8 F)] Pulse: [56] Respirations: [19 PER MINUTE] SpO2: [100 %] Intensity Pain Scale (Self Report): (not recorded) Vitals: 01/16/21 2356 Weight: 85.6 kg (188 lb 11.4 oz) Artificial airway: None Ventilator/ Respiratory Therapy: No Vent weaning trial: Not applicable Lines: Peripheral Line Drains: None Critical Care Vitals: ICP Monitoring: Hemodynamics/Oxycalcs: Intake/Output Summary: (Last 24 hours) No intake or output data in the 24 hours ending 01/17/21 0038 Physical Exam: Blood pressure 130/70, pulse 56, temperature 37.1 C (98.8 F), height 177.8 c m (70"), weight 85.6 kg (188 lb 11.4 oz), SpO2 100 %. [place] coma score: E: 4 - Opens eyes on own M: 6 - Follows simple motor commands V: 5 - Alert and oriented Neuro: Mental Status: A/O Cranial Nerves: Cranial nerves 2-12 INTACT by inspection. - Pupil exam: Size: 3 Reactivity: brisk - EOM: intact Motor: RUE: Strength: 5/5 RLE: Strength: 5/5 LUE: Strength: 5/5 LLE: Strength: 5/5 Sensory: normal Coordination: intact DTRs: intact Lungs: clear to auscultation bilaterally Pulmonary: Respiratory status: Stable Heart: S1, S2 normal Abdomen: soft, non-tender. Bowel sounds normal. No masses, no organomegaly Extremities: extremities normal, atraumatic, no cyanosis or edema Skin: Skin color, texture, turgor normal. No rashes or lesions Point of Care Testing: (Last 24 hours): Lab Review: Pertinent labs reviewed from OSH and admission labs are in process. Radiology and Other Diagnostic Procedures Review: Pertinent radiologic and diag nostic procedures reviewed. I spent 65 minutes managing the care of this patient. Thom Sidhu is in critical condition. Cares included: detailed neurologic and systems exam, medication rev iew, laboratory data review and interpretation, electrolyte management, review o f available imaging, DVT/PE prophylaxis review, diet review, activity review, ne ed for mechanical ventilation and sedation management, and coordination of care with consulted teams REEMA Brush Date: 01/17/[phone] documented in this encounter Miscellaneous Notes * Procedures (Immed Post or Bedside) - Randall Sparks MD - 01/20/2021 10:49 AM CDT Neuro Interventional Immediate Post Procedure Note Date: 01/20/2021 Attending Physician: Randall Sparks MD Third Officer(s): Hammad gr Cerebral Angiogram Time out performed: Consent obtained, correct patient verified, correct procedur e verified, correct site verified, patient marked as necessary. Indications: SAH Anesthesia: Conscious Sedation Sedation/Medication Plan: Moderate sedation Post Op Dx: SAH Findings: No aneurysm, avm, or dAVF Estimated Blood Loss: Minimal Specimen(s) Removed/Disposition: None Complications: None Comments: none Closure Device: 6F Angioseal Recommended Blood Pressure Parameters: SBP per NSG Recommended Anticoagulants: Per NSG Neuro Exam: Awake, following commands Randall Sparks MD Pager: [phone] * Case Mgmt DC Plan - Gayatri Paulino RN - 01/18/2021 5:01 PM CDT Case Management Progress Note NAME:Thom Sidhu :2000 AGE: 20 y.o. ADMISSION DATE: 01/16/2021 DAYS ADMITTED: LOS: 2 days Todays Date: 01/18/2021 Plan: D/c planning ongoing, anticipate d/c home with family support when medical ly stable. Interventions Support Info or Referral Discharge Planning -NCM met with pt and father at bedside, tpt's father reports that pt has a BCB S plan through his mother that should be primary. -NCM received pt's insurance card from his mother and scanned to Admitting and r equested they add to EMR. Medication Needs Financial Financial: Other Legal Other Disposition Expected Discharge Date 01/21/2021 Transportation Does the Patient Need Case Management to Arrange Discharge Transport? (ex: faci lity, ambulance, wheelchair/stretcher, Medicaid, cab, other): No Will the Patient Use Family Transport?: Yes Transportation Name, Phone and Availability #1: pt's mother Next Level of Care (Acute Psych discharges only) Discharge Disposition Selected Continued Care - Admitted Since 01/16/2021 No services have been selected for the patient. DEANA Pitt legal entity controller [employer] Pager: [phone] * Case Mgmt DC Plan - Gayatri Paulino RN - 01/17/2021 1:58 PM CDT Case Management Admission Assessment NAME:Thom Sidhu :2000 AGE: 20 y.o. ADMISSION DATE: 01/16/2021 DAYS ADMITTED: LOS: 1 day Todays Date: 01/17/2021 Source of Information: Parent mother and EMR Plan Plan: Case Management Assessment, Assist PRN with SW/NCM Services, Discharge Beatriz nning for Home with Post-Acute Care Needs Most recent therapy recommendations: PT: signed off OT: signed off ST: not consulted CM needs are not fully known, but none anticipated. NCM/SW team to continue to follow patient's plan of care via EMR and team hud dle; will assist with discharge planning needs as indicated. Assessment Notes Patient's mother is agreeable to completing assessment at this time. NCM provided contact information, explanation of CM roles, and general review of Preparing for Discharge, [facility] Preferred Provider Network h andouts. Patient's mother encouraged to contact case management with questions a nd concerns during hospitalization. Patient lives with roommates in a single-level home with a flight of steps to enter. The home accomodates single-level living. Patient is typically independe nt in all ADLs and mobility without devices. Home support is assessed to be intermittent. Pt's current roommates could pro vide some assistance. Neither of pt's parents live in [facility] but pt could pot entially stay with one of them post-d/c. Patient has no previous HH, LTACH, SNF, IPR, DME experience. Patient Address/Phone [address] [facility] [address] (home) Emergency Contact Extended Emergency Contact Information Primary Emergency Contact: Gopi العراقي Mobile Relation: Father Healthcare Directive NCM unable to discuss with pt. Transportation Does the Patient Need Case Management to Arrange Discharge Transport? (ex: facil ity, ambulance, wheelchair/stretcher, Medicaid, cab, other): No Will the Patient Use Family Transport?: Yes Transportation Name, Phone and Availability #1: pt's mother Expected Discharge Date Expected discharge date, TBD, pending patient's medical stability Living Situation Prior to Admission Living Arrangements Type of Residence: Home, independent Living Arrangements: Friends Bathroom Shower / Tub: Tub/Shower Unit How many levels in the residence?: 1 Can patient live on one level if needed?: Yes Does residence have entry and/or side stairs?: Yes (pt must climb flight of step s) Assistance needed prior to admit or anticipated on discharge: No Who provides assistance or could if needed?: pt's parents or roommates Are they in good health?: Yes Can support system provide 24/7 care if needed?: Maybe Level of Function Prior level of function: Independent Cognitive Abilities Cognitive Abilities: Alert and Oriented, Participates in decision making, Recogn izes impact of health condition on lifestyle Financial Resources Coverage Primary Insurance: Commercial insurance Additional Coverage: RX Payor: [facility] / Plan: [facility] CHOICE/CHOICE PLUS / Product Type: Indemnity / Source of Income Financial Assistance Needed? Patient is affording all medications/healthcare at this time. Psychosocial Needs Mental Health Mental Health History: No Noted to be taking the following psychoactive medication/s: n/a Substance Use History Denies substance use issues. Current/Previous Services PCP Jud Lowery, , Patient is current with PCP; has been seen within the past year. Pharmacy No Pharmacies Listed Durable Medical Equipment Durable Medical Equipment at home: None Home Health Receiving home health: No Hemodialysis or Peritoneal Dialysis Undergoing hemodialysis or peritoneal dialysis: No Tube/Enteral Feeds Receive tube/enteral feeds: No Infusion Receive infusions: No Private Duty Private duty help used: No Home and Community Based Services Home and community based services: No Magnus White Magnus White: No Hospice Hospice: No Outpatient Therapy PT: In the past Name of rehab location/group: [facility] Would patient return for future services?: Yes OT: No CHEMICAL TECHNICIAN: No Intermediate Facility/Long Term SNF: No NH: No Inpatient Rehab IPR: No Long-Term Acute Care Hospital LTACH: No Acute Hospital Stay Acute Hospital Stay: In the past Was patient's stay within the last 30 days?: No DEANA Pitt RN Integrated [employer] Manager [employer] Pager: [phone] * Case Mgmt DC Plan - Gayatri Paulino RN - 01/17/2021 10:34 AM CDT Case Management Progress Note NAME:Thom Sidhu :2000 AGE: 20 y.o. ADMISSION DATE: 01/16/2021 DAYS ADMITTED: LOS: 1 day Todays Date: 01/17/2021 Plan: D/c planning ongoing. Interventions Support Info or Referral Discharge Planning -NCM called pt's room to complete assessment, no answer. -NCM to continue to attempt assessment as time permits. -NCM called pt's father to complete admission assessment, no answer and voicemai l without identifying information, NCM to continue to attempt assessment as time permits. Medication Needs Financial Legal Other Disposition Expected Discharge Date 01/24/2021 Transportation Next Level of Care (Acute Psych discharges only) Discharge Disposition Selected Continued Care - Admitted Since 01/16/2021 No services have been selected for the patient. DEANA Pitt legal entity controller [employer] Pager: [phone] * Procedures (Immed Post or Bedside) - Randall Sparks MD - 01/17/2021 9:57 AM CDT Neuro Interventional Immediate Post Procedure Note Date: 01/17/2021 Attending Physician: Randall Sparks MD Third Officer(s): Teresita Cerebral Angiogram Time out performed: Consent obtained, correct patient verified, correct procedur e verified, correct site verified, patient marked as necessary. Indications: SAH Anesthesia: Conscious Sedation Sedation/Medication Plan: Moderate sedation Post Op Dx: SAH Findings: No aneurysm, AVM, or dAVF Estimated Blood Loss: Less than 50 ml Specimen(s) Removed/Disposition: None Complications: None Comments: Recommend repeat angio in 1 week Closure Device: StarClose Recommended Blood Pressure Parameters: SBP <140 mmHg Recommended Anticoagulants: Per NSG Neuro Exam: Awake, following commands Randall Sparks MD Pager: [phone] documented in this encounter Plan of Treatment Not on filedocumented as of this encounter Goals Goal Patient Associated Recent Progress Patient-Stat Aut hor Goal Type Problems ed? Recover from illness Hospital On track (01/19/2021 Светлана Hair, 10:19 AM CDT) ANGELA Duval documented as of this encounter Procedures Comments Procedure Name Priority Date/Time Associated Diag nosis IR CEREBRAL ARTERIOGRAM Routine 01/20/2021 DIAGNOSTIC 10:53 AM CDT HC CBC W/ AUTOMATED DIFF Routine 01/20/2021 3:21 AM CDT HC PHOSPHOROUS, SERUM Routine 01/20/2021 3:21 AM CDT HC MAGNESIUM Routine 01/20/2021 3:21 AM CDT HC CALCIUM IONIZED Routine 01/20/2021 3:21 AM CDT HC BASIC METABOLIC PANEL Routine 01/20/2021 3:21 AM CDT HC CBC W/ AUTOMATED DIFF Routine 01/19/2021 4:00 AM CDT HC MAGNESIUM Routine 01/19/2021 4:00 AM CDT HC BASIC METABOLIC PANEL Routine 01/19/2021 4:00 AM CDT HC CALCIUM IONIZED Routine 01/19/2021 3:59 AM CDT HC CBC W/ AUTOMATED DIFF Routine 01/18/2021 4:40 AM CDT HC PHOSPHOROUS, SERUM Routine 01/18/2021 4:40 AM CDT HC MAGNESIUM Routine 01/18/2021 4:40 AM CDT HC CALCIUM IONIZED Routine 01/18/2021 4:40 AM CDT HC BASIC METABOLIC PANEL Routine 01/18/2021 4:40 AM CDT HC PHENCYCLIDINES; QUAL Routine 01/17/2021 10:40 AM CDT HC OPIATES; QUAL Routine 01/17/2021 10:40 AM CDT HC COCAINE; QUAL Routine 01/17/2021 10:40 AM CDT HC CANNABINOIDS; QUAL Routine 01/17/2021 10:40 AM CDT HC BENZODIAZEPINES, QUAL Routine 01/17/2021 10:40 AM CDT HC BARBITURATES Routine 01/17/2021 10:40 AM CDT HC AMPHETAMINES QUAL, Routine 01/17/2021 URINE 10:40 AM CDT IR CEREBRAL ARTERIOGRAM Routine 01/17/2021 DIAGNOSTIC 9:50 AM CDT HC CBC W/ AUTOMATED DIFF Routine 01/17/2021 4:20 AM CDT HC BASIC METABOLIC PANEL Routine 01/17/2021 4:20 AM CDT CTA HEAD WO/W CONTR+POST STAT 01/17/2021 PRO 3:25 AM CDT HC PTT(APTT) STAT 01/17/2021 12:04 AM CDT HC PT(INR) STAT 01/17/2021 12:04 AM CDT HC CBC W/ AUTOMATED DIFF STAT 01/17/2021 12:04 AM CDT HC PHOSPHOROUS, SERUM STAT 01/17/2021 12:04 AM CDT HC MAGNESIUM STAT 01/17/2021 12:04 AM CDT HC COMPREHENSIVE STAT 01/17/2021 METABOLIC PANEL 12:04 AM CDT COVID-19 (SARS-COV-2) PCR Routine 01/17/2021 12:02 AM CDT documented in this encounter Results * IR CEREBRAL ARTERIOGRAM DIAGNOSTIC (01/20/2021 10:53 AM CDT) Specimen Impressions Performed At 1. No evidence of a cerebral aneurysm or early connor riovenous shunting to [facility] RESULTS indicate a cerebral AVM or dural AVF. I performed this procedure without the involvement of a resident or fellow. Finalized by RANDALL SPARKS M.D. on 01/20/2021 11:17 AM. Dictated by RANDALL SPARKS M.D. on 01/20/2021 1 0:59 AM. Narrative Performed At Cerebral Angiogram [facility] RESULTS Indication - SAH Procedures Performed 1) Selective right internal carotid art nydia cerebral angiograms x 3. 2) Selective right internal carotid art nydia 3D cerebral angiogram. 3) Selective right external carotid art nydia cerebral angiograms x 2. 4) Selective right vertebral artery cer ebral angiograms x 2. 5) Selective left internal carotid connor ry cerebral angiograms x 2. 6) Selective left external carotid connor ry cerebral angiogram. 7) Selective left vertebral artery cere bral angiogram. 8) Right common femoral artery angiogra m. Referring Physician - Mert Bolivar MD Neurointerventionalist: Randall garcia MD I was personally responsible for the ad ministration of moderate sedation services during the procedure performed and I confirm requirements described in CPT section on moderate sedation were f ollowed, including the use of an independent trained observer who had no other duties during the procedure. See nursing log for complete details. The drugs utilized were: Versed and Fentanyl. Contrast - 110 cc [id number] Total mGy - 1527 Anesthesia: conscious sedation Consent - The procedure and its risks , benefits, and alternative treatments were explained to the patient and his f vincenty and they understood them and he signed the consent form. Clinical History: Mr. Sidhu is a 20 yea r old male who is here for a follow up cerebral angiogram to evaluate for an e tiology of SAH. Description of Procedure The patient was brought to the angio under[place] ite and placed in supine position on the angio table. The right groin was prep ped in a standard sterile fashion. Local anesthesia was obtained with 10 cc of 1% lidocaine. Following this, a 5 F 25 cm sheath was placed in the [facility] common femoral artery, establishing arterial access. AMIRA Technique A 5 Martiniquais 100 cm Vert catheter was adv anced over a 150 cm 0.035 Pritchett wire over the aortic arch and into the cervical r ight internal carotid artery. Images were obtained in biplane projections of the right anterior intracranial circulation. AMIRA Interpretation The angiogram demonstrated normal anteg rade flow into the right middle and anterior cerebral arteries. There is no evidence of an aneurysm or early arteriovenous shunting to indicate an A VM. The capillary and venous phases are unremarkable. AMIRA 3D Angiogram Technique The catheter was attached to the contra st power injector and a right internal carotid artery 3D cerebral angiogram wa s performed. The 3 dimensionally reconstructed views obtained during thi s procedure were processed on an independent workstation. The reconstruc tion image processing was performed under my direction. The three-dimensional rec onstructed images added additional diagnostic information. AMIRA 3D Angiogram Interpretation The angiogram demonstrated no evidence of an aneurysm or AVM. RECA Technique Under fluoroscopic and roadmap guidance , the catheter was advanced into the right external carotid artery and image s were obtained in biplane projections of the right extracranial circulation. RECA Interpretation The angiogram demonstrated normal anteg rade flow with no evidence of an intracranial anastomosis or early arter iovenous shunting to suggest a dural AVF. RVA Technique The right vertebral artery was selectiv gary catheterized under fluoroscopic and roadmap guidance over the Pritchett wire an d images were obtained in biplane projections of the posterior intracrani al circulation. RVA Interpretation The angiogram demonstrated normal anteg rade flow into the vertebrobasilar artery circulation. There is no evidence of an aneurysm or early arteriovenous shunting to indicate an AVM. The capi llary and venous phases are unremarkable. LICA Technique Under fluoroscopic and roadmap guidance , the catheter was advanced into the cervical left internal carotid artery a nd images were obtained in biplane projections of the left anterior intrac ranial circulation. LICA Interpretation The angiogram demonstrated normal anteg rade flow into the left middle and anterior cerebral arteries. There is no evidence of an aneurysm or early arteriovenous shunting to indicate an A VM. The capillary and venous phases are unremarkable. LECA Technique Under fluoroscopic and roadmap guidance , the catheter was advanced into the left external carotid artery and images were obtained in biplane projections of the left extracranial circulation. LECA Interpretation The angiogram demonstrated normal anteg rade flow with no evidence of an intracranial anastomosis or early arter iovenous shunting to suggest a dural AVF. LVA Technique The left vertebral artery was selective ly catheterized under fluoroscopic and roadmap guidance over the Pritchett wire an d images were obtained in biplane projections of the posterior intracrani al circulation. LVA Interpretation The angiogram demonstrated antegrade fl ow into the vertebrobasilar artery circulation with early washout due to t he dominant right vertebral artery. There is no evidence of an aneurysm o r early arteriovenous shunting to indicate an AVM. The vertebral artery h as a direct origin off the aortic arch. The capillary and venous phases are unr emarkable. After reviewing the final images, the c atheter was removed and a right common femoral artery angiogram was performed. The angiogram demonstrated the access site well above the bifurcation with no branching vessels arising from the site; therefore, hemostasis was achieved usin g a 6 Martiniquais Angioseal closure device followed by manual pressure for 5 minut es. The patient was transported to the neur o ICU in stable clinical and hemodynamic conditions. Complications - none immediate Procedure Note Interface, Radiant Results - 01/20/2021 11:20 AM CDT Cerebral Angiogram Indication - SAH Procedures Performed 1) Selective right internal carotid connor ry cerebral angiograms x 3. 2) Selective right internal carotid connor ry 3D cerebral angiogram. 3) Selective right external carotid connor ry cerebral angiograms x 2. 4) Selective right vertebral artery cere bral angiograms x 2. 5) Selective left internal carotid arter y cerebral angiograms x 2. 6) Selective left external carotid arter y cerebral angiogram. 7) Selective left vertebral artery cereb ral angiogram. 8) Right common femoral artery angiogram . Referring Physician - Mert Bolivar MD Neurointerventionalist: Randall Sparks MD I was personally responsible for the administration of moderate sedation services during the procedure performed and I confirm requirements described in CPT section on moderate sedation were followed, including the use of an independent trained observer who had no other duties during the procedure. See nursing log for complete details. The drugs utilized were: Versed and Fentanyl. Contrast - 110 cc [id number] Total mGy - 1527 Anesthesia: conscious sedation Consent - The procedure and its risks, benefits, and alternative treatments were explained to the patient and his family and they understood them and he signed the consent form. Clinical History: Mr. Sidhu is a 20 year old male who is here for a follow up cerebral angiogram to evaluate for an etiology of SAH. Description of Procedure The patient was brought to the angio suite and placed in supine position on the angio table. The right groin was prepped in a standard sterile fashion. Local anesthesia was obtained with 10 cc of 1% lidocaine. Following this, a 5 F 25 cm sheath was placed in the right common femoral artery, establishing arterial access. AMIRA Technique A 5 Martiniquais 100 cm Vert catheter was advanced over a 150 cm 0.035 Pritchett wire over the aortic arch and into the cervical right internal carotid artery. Images were obtained in biplane projections of the right anterior intracranial circulation. AMIRA Interpretation The angiogram demonstrated normal antegrade flow into the right middle and anterior cerebral arteries. There is no evidence of an aneurysm or early arteriovenous shunting to indicate an AVM. The capillary and venous phases are unremarkable. AMIRA 3D Angiogram Technique The catheter was attached to the contrast power injector and a right internal carotid artery 3D cerebral angiogram was performed. The 3 dimensionally reconstructed views obtained during this procedure were processed on an independent workstation. The reconstruction image processing was performed under my direction. The three-dimensional reconstructed images added additional diagnostic information. AMIRA 3D Angiogram Interpretation The angiogram demonstrated no evidence of an aneurysm or AVM. RECA Technique Under fluoroscopic and roadmap guidance, the catheter was advanced into the right external carotid artery and images were obtained in biplane projections of the right extracranial circulation. RECA Interpretation The angiogram demonstrated normal antegrade flow with no evidence of an intracranial anastomosis or early arteriovenous shunting to suggest a dural AVF. RVA Technique The right vertebral artery was selectively catheterized under fluoroscopic and roadmap guidance over the Pritchett wire and images were obtained in biplane projections of the posterior intracranial circulation. RVA Interpretation The angiogram demonstrated normal antegrade flow into the vertebrobasilar artery circulation. There is no evidence of an aneurysm or early arteriovenous shunting to indicate an AVM. The capillary and venous phases are unremarkable. LICA Technique Under fluoroscopic and roadmap guidance, the catheter was advanced into the cervical left internal carotid artery and images were obtained in biplane projections of the left anterior intracranial circulation. LICA Interpretation The angiogram demonstrated normal antegrade flow into the left middle and anterior cerebral arteries. There is no evidence of an aneurysm or early arteriovenous shunting to indicate an AVM. The capillary and venous phases are unremarkable. LECA Technique Under fluoroscopic and roadmap guidance, the catheter was advanced into the left external carotid artery and images were obtained in biplane projections of the left extracranial circulation. LECA Interpretation The angiogram demonstrated normal antegrade flow with no evidence of an intracranial anastomosis or early arteriovenous shunting to suggest a dural AVF. LVA Technique The left vertebral artery was selectively catheterized under fluoroscopic and roadmap guidance over the Pritchett wire and images were obtained in biplane projections of the posterior intracranial circulation. LVA Interpretation The angiogram demonstrated antegrade flow into the vertebrobasilar artery circulation with early washout due to the dominant right vertebral artery. There is no evidence of an aneurysm or early arteriovenous shunting to indicate an AVM. The vertebral artery has a direct origin off the aortic arch. The capillary and venous phases are unremarkable. After reviewing the final images, the catheter was removed and a right common femoral artery angiogram was performed. The angiogram demonstrated the access site well above the bifurcation with no branching vessels arising from the site; therefore, hemostasis was achieved using a 6 Martiniquais Angioseal closure device followed by manual pressure for 5 minutes. The patient was transported to the neuro ICU in stable clinical and hemodynamic conditions. Complications - none immediate IMPRESSION 1. No evidence of a cerebral aneurysm o r early arteriovenous shunting to indicate a cerebral AVM or dural AVF. I performed this procedure without the involvement of a resident or fellow. Finalized by RANDALL SPARKS M.D. on 01/20/2021 11:17 AM. Dictated by RANDALL SPAKRS M.D. on 01/20/2021 10:59 AM. Performing Organization Address City/[facility]/ZIP Code P bk Number [facility] * PHOSPHORUS (01/20/2021 3:21 AM CDT) Phosphorus 5.2 (H) 2.0 - 4.5 MG/DL [facility] Specimen Blood Performing Organization Address City/[facility]/ZIP Code P bk Number [facility] [address] [place] [address] * MAGNESIUM (01/20/2021 3:21 AM CDT) Magnesium 2.0 1.6 - 2.6 mg/dL [facility] Specimen Blood Performing Organization Address City/[facility] Code P bk Number [facility] [address] [place] [address] * IONIZED CALCIUM (01/20/2021 3:21 AM CDT) Ionized Calcium 1.22 1.0 - 1.3 MMOL/L [facility] Specimen Blood Performing Organization Address [facility] P bk Number [facility] [address] [place] [address] * CBC AND DIFF (01/20/2021 3:21 AM CDT) White Blood 4.2 (L) 4.5 - 11.0 K/UL [facility] Cells RBC 4.61 4.4 - 5.5 M/UL [facility] Hemoglobin 13.8 13.5 - 16.5 GM/DL [facility] Hematocrit 39.0 (L) 40 - 50 % [facility] MCV 84.7 80 - 100 FL [facility] MCH 30.0 26 - 34 PG [facility] MCHC 35.5 32.0 - 36.0 G/DL [facility] RDW 12.7 11 - 15 % [facility] Platelet Count 155 150 - 400 K/UL [facility] MPV 8.2 7 - 11 FL [facility] Neutrophils 42 41 - 77 % [facility] Lymphocytes 44 24 - 44 % [facility] Monocytes 9 4 - 12 % [facility] Eosinophils 4 0 - 5 % [facility] Basophils 1 0 - 2 % [facility] Absolute 1.75 (L) 1.8 - 7.0 K/UL [facility] Neutrophil Count Absolute Lymph 1.88 1.0 - 4.8 K/UL [facility] Count Absolute 0.37 0 - 0.80 K/UL [facility] Monocyte Count Absolute 0.17 0 - 0.45 K/UL [facility] Eosinophil Count Absolute 0.03 0 - 0.20 K/UL [facility] Basophil Count Specimen Blood Performing Organization Address City/State/ZIP Code P bk Number [facility] [address] [place] [address] * BASIC METABOLIC PANEL (01/20/2021 3:21 AM CDT) Sodium 142 137 - 147 MMOL/L [facility] Potassium 3.9 3.5 - 5.1 MMOL/L [facility] Chloride 106 98 - 110 MMOL/L [facility] CO2 29 21 - 30 MMOL/L [facility] Anion Gap 7 3 - 12 [facility] Glucose 95 70 - 100 MG/DL [facility] Blood Urea 21 7 - 25 MG/DL [facility] Nitrogen Creatinine 1.26 (H) 0.4 - 1.24 MG/DL [facility] Calcium 9.3 8.5 - 10.6 MG/DL [facility] eGFR Non >60 >60 mL/min [facility] Comment: [place] The eGFR is not validated f or use in drug dosing adjustments. Continue to use estimated creatinine clearance per dosing reference text. Please contact the Clinical Pharmacist for questions. eGFR >60 >60 mL/min [facility] [place] Comment: The eGFR is not validated for use in drug dosing adjustments. Continue to use estimated creatinine clearance per dosing reference text. Please contact the Clinical Pharmacist for questions. Specimen Blood Performing Organization Address City/[facility]/ZIP Code P bk Number [facility] [address] [place] [address] * MAGNESIUM (01/19/2021 4:00 AM CDT) Magnesium 1.9 1.6 - 2.6 mg/dL [facility] Specimen Blood Performing Organization Address City/[facility]/ZIP Code P bk Number [facility] [address] [place] [address] * CBC AND DIFF (01/19/2021 4:00 AM CDT) White Blood 3.8 (L) 4.5 - 11.0 K/UL [facility] Cells RBC 4.58 4.4 - 5.5 M/UL [facility] Hemoglobin 13.6 13.5 - 16.5 GM/DL [facility] Hematocrit 38.8 (L) 40 - 50 % [facility] MCV 84.5 80 - 100 FL [facility] MCH 29.7 26 - 34 PG [facility] MCHC 35.2 32.0 - 36.0 G/DL [facility] RDW 12.7 11 - 15 % [facility] Platelet Count 152 150 - 400 K/UL [facility] MPV 8.4 7 - 11 FL [facility] Neutrophils 37 (L) 41 - 77 % [facility] Lymphocytes 48 (H) 24 - 44 % [facility] Monocytes 10 4 - 12 % [facility] Eosinophils 4 0 - 5 % [facility] Basophils 1 0 - 2 % [facility] Absolute 1.43 (L) 1.8 - 7.0 K/UL [facility] Neutrophil Count Absolute Lymph 1.87 1.0 - 4.8 K/UL [facility] Count Absolute 0.36 0 - 0.80 K/UL [facility] Monocyte Count Absolute 0.13 0 - 0.45 K/UL [facility] Eosinophil Count Absolute 0.02 0 - 0.20 K/UL [facility] Basophil Count Specimen Blood Performing Organization Address City/State/ZIP Code P bk Number [facility] [address] [place] [address] * BASIC METABOLIC PANEL (01/19/2021 4:00 AM CDT) Sodium 141 137 - 147 MMOL/L [facility] Potassium 3.7 3.5 - 5.1 MMOL/L [facility] Chloride 105 98 - 110 MMOL/L [facility] CO2 26 21 - 30 MMOL/L [facility] Anion Gap 10 3 - 12 [facility] Glucose 99 70 - 100 MG/DL [facility] Blood Urea 20 7 - 25 MG/DL [facility] Nitrogen Creatinine 1.16 0.4 - 1.24 MG/DL [facility] Calcium 8.8 8.5 - 10.6 MG/DL [facility] eGFR Non >60 >60 mL/min [facility] Comment: [place] The eGFR is not validated f or use in drug dosing adjustments. Continue to use estimated creatinine clearance per dosing reference text. Please contact the Clinical Pharmacist for questions. eGFR >60 >60 mL/min [facility] [place] Comment: The eGFR is not validated for use in drug dosing adjustments. Continue to use estimated creatinine clearance per dosing reference text. Please contact the Clinical Pharmacist for questions. Specimen Blood Performing Organization Address City/[facility]/ZIP Code P bk Number [facility] [address] [place] [address] * IONIZED CALCIUM (01/19/2021 3:59 AM CDT) Ionized Calcium 1.20 1.0 - 1.3 MMOL/L [facility] Specimen Blood Performing Organization Address City/[facility] Code P bk Number [facility] [address] [place] [address] * PHOSPHORUS (01/18/2021 4:40 AM CDT) Phosphorus 3.8 2.0 - 4.5 MG/DL [facility] Specimen Blood Performing Organization Address [facility] P bk Number [facility] [address] [place] [address] * MAGNESIUM (01/18/2021 4:40 AM CDT) Magnesium 2.0 1.6 - 2.6 mg/dL [facility] Specimen Blood Performing Organization Address [facility] P bk Number [facility] [address] [place] [address] * IONIZED CALCIUM (01/18/2021 4:40 AM CDT) Ionized Calcium 1.23 1.0 - 1.3 MMOL/L [facility] Specimen Blood Performing Organization Address [facility] P bk Number [facility] [address] [place] [address] * CBC AND DIFF (01/18/2021 4:40 AM CDT) White Blood 4.1 (L) 4.5 - 11.0 K/UL [facility] Cells RBC 4.47 4.4 - 5.5 M/UL [facility] Hemoglobin 13.5 13.5 - 16.5 GM/DL [facility] Hematocrit 38.0 (L) 40 - 50 % [facility] MCV 85.0 80 - 100 FL [facility] MCH 30.1 26 - 34 PG [facility] MCHC 35.5 32.0 - 36.0 G/DL [facility] RDW 12.9 11 - 15 % [facility] Platelet Count 167 150 - 400 K/UL [facility] MPV 8.3 7 - 11 FL [facility] Neutrophils 43 41 - 77 % [facility] Lymphocytes 44 24 - 44 % [facility] Monocytes 9 4 - 12 % [facility] Eosinophils 3 0 - 5 % [facility] Basophils 1 0 - 2 % [facility] Absolute 1.76 (L) 1.8 - 7.0 K/UL [facility] Neutrophil Count Absolute Lymph 1.85 1.0 - 4.8 K/UL [facility] Count Absolute 0.36 0 - 0.80 K/UL [facility] Monocyte Count Absolute 0.11 0 - 0.45 K/UL [facility] Eosinophil Count Absolute 0.02 0 - 0.20 K/UL [facility] Basophil Count Specimen Blood Performing Organization Address City/[facility]/ZIP Code P bk Number [facility] [address] [place] [address] * BASIC METABOLIC PANEL (01/18/2021 4:40 AM CDT) Sodium 142 137 - 147 MMOL/L [facility] Potassium 4.3 3.5 - 5.1 MMOL/L [facility] Chloride 108 98 - 110 MMOL/L [facility] CO2 26 21 - 30 MMOL/L [facility] Anion Gap 8 3 - 12 [facility] Glucose 100 70 - 100 MG/DL [facility] Blood Urea 22 7 - 25 MG/DL [facility] Nitrogen Creatinine 1.23 0.4 - 1.24 MG/DL [facility] Calcium 9.1 8.5 - 10.6 MG/DL [facility] eGFR Non >60 >60 mL/min [facility] Comment: [place] The eGFR is not validated f or use in drug dosing adjustments. Continue to use estimated creatinine clearance per dosing reference text. Please contact the Clinical Pharmacist for questions. eGFR >60 >60 mL/min [facility] [place] Comment: The eGFR is not validated for use in drug dosing adjustments. Continue to use estimated creatinine clearance per dosing reference text. Please contact the Clinical Pharmacist for questions. Specimen Blood Performing Organization Address [facility]/ZIP [facility]k Number [facility] [address] [place] [address] * PHENCYCLIDINES-URINE RANDOM (01/17/2021 10:40 AM CDT) Phencyclidine NEG NEG-NEG [facility] (PCP) Comment: RESULTS WERE OBTAINED BY IMMUNOASSAY AND ARE PRESUMPTIVE ONLY. POSITIVE INDICATES THE PRESENCE OF SUBSTANCE WITH CHARACTERISTICS SIMILAR TO DRUG-DRUG CLASS OR METABOLITE IN CONC. EQUAL TO OR EXCEEDING VALUES LISTED. PHENCYCLIDINE (PCP) 25 NG/ML Specimen Urine - Urine Performing Organization Address City/[facility] Code P bk Number MAIN LAB [address] [place] [address] * OPIATES-URINE RANDOM (01/17/2021 10:40 AM CDT) Opiates-Urine NEG NEG-NEG [facility] Comment: RESULTS WERE OBTAINED BY IMMUNOASSAY AND ARE PRESUMPTIVE ONLY. POSITIVE INDICATES THE PRESENCE OF SUBSTANCE WITH CHARACTERISTICS SIMILAR TO DRUG-DRUG CLASS OR METABOLITE IN CONC. EQUAL TO OR EXCEEDING VALUES LISTED. OPIATES 2000 NG/ML Specimen Urine - Urine Performing Organization Address [facility] Code P bk Number MAIN LAB [address] [place] [address] * COCAINE-URINE RANDOM (01/17/2021 10:40 AM CDT) Cocaine-Urine NEG NEG-NEG [facility] Comment: RESULTS WERE OBTAINED BY IMMUNOASSAY AND ARE PRESUMPTIVE ONLY. POSITIVE INDICATES THE PRESENCE OF SUBSTANCE WITH CHARACTERISTICS SIMILAR TO DRUG-DRUG CLASS OR METABOLITE IN CONC. EQUAL TO OR EXCEEDING VALUES LISTED. COCAINE 300 NG/ML Specimen Urine - Urine Performing Organization Address [facility] P bk Number [facility] [address] [place] [address] * CANNABINOIDS-URINE RANDOM (01/17/2021 10:40 AM CDT) THC NEG NEG-NEG [facility] Comment: RESULTS WERE OBTAINED BY IMMUNOASSAY AND ARE PRESUMPTIVE ONLY. POSITIVE INDICATES THE PRESENCE OF SUBSTANCE WITH CHARACTERISTICS SIMILAR TO DRUG-DRUG CLASS OR METABOLITE IN CONC. EQUAL TO OR EXCEEDING VALUES LISTED. CANNABINOIDS 50 NG/ML Specimen Urine - Urine Performing Organization Address City/[facility] P bk Number MAIN LAB [address] [place] [address] * BENZODIAZEPINES-URINE RANDOM (01/17/2021 10:40 AM CDT) Benzodiazepines POS (A) NEG-NEG [facility] Comment: RESULTS WERE OBTAINED BY IMMUNOASSAY AND ARE PRESUMPTIVE ONLY. POSITIVE INDICATES THE PRESENCE OF SUBSTANCE WITH CHARACTERISTICS SIMILAR TO DRUG-DRUG CLASS OR METABOLITE IN CONC. EQUAL TO OR EXCEEDING VALUES LISTED. BENZODIAZEPINES 200 NG/ML Specimen Urine - Urine Performing Organization Address City/[facility]/ZIP Code P bk Number [facility] [address] [place] [address] * BARBITURATES-URINE RANDOM (01/17/2021 10:40 AM CDT) Barbiturates,Ur NEG NEG-NEG [facility] ine Comment: RESULTS WERE OBTAINED BY IMMUNOASSAY AND ARE PRESUMPTIVE ONLY. POSITIVE INDICATES THE PRESENCE OF SUBSTANCE WITH CHARACTERISTICS SIMILAR TO DRUG-DRUG CLASS OR METABOLITE IN CONC. EQUAL TO OR EXCEEDING VALUES LISTED. BARBITURATES 200 NG/ML Specimen Urine - Urine Performing Organization Address [facility] Code P bk Number [facility] [address] [place] [address] * AMPHETAMINES-URINE RANDOM (01/17/2021 10:40 AM CDT) Amphetamines NEG NEG-NEG [facility] LAB Comment: RESULTS WERE OBTAINED BY IMMUNOASSAY AND ARE PRESUMPTIVE ONLY. POSITIVE INDICATES THE PRESENCE OF SUBSTANCE WITH CHARACTERISTICS SIMILAR TO DRUG-DRUG CLASS OR METABOLITE IN CONC. EQUAL TO OR EXCEEDING VALUES LISTED. AMPHETAMINES 1000 NG/ML Specimen Urine - Urine Performing Organization Address [facility] P bk Number MAIN LAB [address] [place] [address] * IR CEREBRAL ARTERIOGRAM DIAGNOSTIC (01/17/2021 9:50 AM CDT) Specimen Impressions Performed At 1. No evidence of an intracranial ane urysm or early arteriovenous shunting to [facility] RESULTS indicate a cerebral AVM or dural AV fis fabiana. These findings were discussed with Dr. Bolivar, the [facility], and the decision was made to do a follow catheter angiogram later this we ek. I performed this procedure without the involvement of a resident or fellow. Finalized by RANDALL SPARKS M.D. on 01/17/2021 11:21 AM. Dictated by RANDALL SPARKS M.D. on 01/17/2021 1 1:09 AM. Narrative Performed At Cerebral Angiogram [facility] RESULTS Indication - subarachnoid hemorrhage Procedures Performed 1) Selective right vertebral artery cer ebral angiograms x 2. 2) Selective right internal carotid art nydia cerebral angiograms x 5. 3) Selective right internal carotid art nydia 3D cerebral angiogram. 4) Selective right external carotid art nydia cerebral angiograms x 2. 5) Selective left internal carotid connor ry cerebral angiograms x 2. 6) Selective left external carotid connor ry cerebral angiogram. 7) Selective left vertebral artery cere bral angiogram. 8) Right common femoral artery angiogra m. Referring Physician - Mert Bolivar MD Neurointerventionalist: Randall garcia MD I was personally responsible for the ministration of moderate sedation services during the procedure performed and I confirm requirements described in CPT section on moderate sedation were f ollowed, including the use of an independent trained observer who had no other duties during the procedure. See nursing log for complete details. The drugs utilized were: Versed and Fentanyl. Contrast - 120 cc [id number] Total mGy - 2007 Anesthesia: conscious sedation Consent - The procedure and its risks , benefits, and alternative treatments were explained to the patient and his f amily and they understood them and he signed the consent form. Clinical History: Mr. Sidhu is a 20 yea r old male who presented to the hospital due to subarachnoid hemorrhage. He is h ere for a cerebral angiogram to evaluate for an etiology. Description of Procedure The patient was brought to the angio underwood ite and placed in supine position on the angio table. The right groin was prep ped in a standard sterile fashion. Local anesthesia was obtained with 10 cc of 1% lidocaine. Following this, a 5 F 25 cm sheath was placed in the [facility] common femoral artery, establishing arterial access. RVA Technique A 5 Martiniquais 100 cm Vert catheter was adv anced over a 150 cm 0.035 Pritchett wire over the aortic arch and into the right vert ebral artery under fluoroscopic and roadmap guidance. Images were obtaine d in biplane projections of the posterior intracranial circulation. RVA Interpretation The angiogram demonstrated normal anteg rade flow into the vertebrobasilar artery circulation. There is no evidence of an intracranial aneurysm or early arteriovenous shunting to indicate a ce rebral AVM. The capillary and venous phases are unremarkable. AMIRA Technique Under fluoroscopic guidance the cathete r was advanced into the cervical right internal carotid artery and images were obtained in biplane projections of the right anterior intracranial circulation . AMIRA Interpretation The angiogram demonstrated normal anteg rade flow into the right middle and anterior cerebral arteries. There is no evidence of an intracranial aneurysm or early arteriovenous shunting to tete sid a cerebral AVM. The capillary and venous phases are unremarkable. AMIRA 3D Angiogram Technique The catheter was attached to the contra st power injector and a right internal carotid artery 3D cerebral angiogram wa s performed. The 3 dimensionally reconstructed views obtained during thi s procedure were processed on an independent workstation. The reconstruc tion image processing was performed under my direction. The three-dimensional rec onstructed images added additional diagnostic information. AMIRA 3D Angiogram Interpretation The angiogram demonstrated RECA Technique Under fluoroscopic and roadmap guidance , the catheter was advanced into the right external carotid artery and image s were obtained in biplane projections of the right extracranial circulation. RECA Interpretation The angiogram demonstrated normal anteg rade flow with no evidence of an intracranial anastomosis or early arter iovenous shunting to suggest a dural AVF. LICA Technique Under fluoroscopic and roadmap guidance , the catheter was advanced into the cervical left internal carotid artery a nd images were obtained in biplane projections of the left anterior intrac ranial circulation. LICA Interpretation The angiogram demonstrated normal anteg rade flow into the left middle and anterior cerebral arteries. There is no evidence of an intracranial aneurysm or early arteriovenous shunting to tete sid a cerebral AVM. The capillary and venous phases are unremarkable. LECA Technique Under fluoroscopic and roadmap guidance , the catheter was advanced into the left external carotid artery and images were obtained in biplane projections of the left extracranial circulation. LECA Interpretation The angiogram demonstrated normal anteg rade flow with no evidence of an intracranial anastomosis or early arter iovenous shunting to suggest a dural AVF. LVA Technique The left vertebral artery was selective ly catheterized under fluoroscopic and roadmap guidance over the Pritchett wire an d images were obtained in biplane projections of the posterior intracrani al circulation. LVA Interpretation The angiogram demonstrated antegrade fl ow into the vertebrobasilar artery circulation with early washout due to t he dominant right vertebral artery. There is no evidence of an intracrani al aneurysm or early arteriovenous shunting to indicate a cerebral AVM. Th e capillary and venous phases are unremarkable. After reviewing the final images, the c atheter was removed and a right common femoral artery angiogram was performed. The angiogram demonstrated the access site well above the bifurcation with no branching vessels arising from the site; therefore, hemostasis was achieved usin g a 6 Martiniquais Star close closure device followed by manual pressure for 5 minut es. The patient was transported to the neur o ICU in stable clinical and hemodynamic conditions. Complications - none immediate Procedure Note Interface, Radiant Results - 01/17/2021 11:24 AM CDT Cerebral Angiogram Indication - subarachnoid hemorrhage Procedures Performed 1) Selective right vertebral artery cere bral angiograms x 2. 2) Selective right internal carotid connor ry cerebral angiograms x 5. 3) Selective right internal carotid connor ry 3D cerebral angiogram. 4) Selective right external carotid connor ry cerebral angiograms x 2. 5) Selective left internal carotid arter y cerebral angiograms x 2. 6) Selective left external carotid arter y cerebral angiogram. 7) Selective left vertebral artery cereb ral angiogram. 8) Right common femoral artery angiogram . Referring Physician - Mert Bolivar MD Neurointerventionalist: Randall Sparks MD I was personally responsible for the administration of moderate sedation services during the procedure performed and I confirm requirements described in CPT section on moderate sedation were followed, including the use of an independent trained observer who had no other duties during the procedure. See nursing log for complete details. The drugs utilized were: Versed and Fentanyl. Contrast - 120 cc [id number] Total mGy - 2007 Anesthesia: conscious sedation Consent - The procedure and its risks, benefits, and alternative treatments were explained to the patient and his family and they understood them and he signed the consent form. Clinical History: Mr. Sidhu is a 20 year old male who presented to the hospital due to subarachnoid hemorrhage. He is here for a cerebral angiogram to evaluate for an etiology. Description of Procedure The patient was brought to the angio suite and placed in supine position on the angio table. The right groin was prepped in a standard sterile fashion. Local anesthesia was obtained with 10 cc of 1% lidocaine. Following this, a 5 F 25 cm sheath was placed in the right common femoral artery, establishing arterial access. RVA Technique A 5 Martiniquais 100 cm Vert catheter was advanced over a 150 cm 0.035 Pritchett wire over the aortic arch and into the right vertebral artery under fluoroscopic and roadmap guidance. Images were obtained in biplane projections of the posterior intracranial circulation. RVA Interpretation The angiogram demonstrated normal antegrade flow into the vertebrobasilar artery circulation. There is no evidence of an intracranial aneurysm or early arteriovenous shunting to indicate a cerebral AVM. The capillary and venous phases are unremarkable. AMIRA Technique Under fluoroscopic guidance the catheter was advanced into the cervical right internal carotid artery and images were obtained in biplane projections of the right anterior intracranial circulation. AMIRA Interpretation The angiogram demonstrated normal antegrade flow into the right middle and anterior cerebral arteries. There is no evidence of an intracranial aneurysm or early arteriovenous shunting to indicate a cerebral AVM. The capillary and venous phases are unremarkable. AMIRA 3D Angiogram Technique The catheter was attached to the contrast power injector and a right internal carotid artery 3D cerebral angiogram was performed. The 3 dimensionally reconstructed views obtained during this procedure were processed on an independent workstation. The reconstruction image processing was performed under my direction. The three-dimensional reconstructed images added additional diagnostic information. AMIRA 3D Angiogram Interpretation The angiogram demonstrated RECA Technique Under fluoroscopic and roadmap guidance, the catheter was advanced into the right external carotid artery and images were obtained in biplane projections of the right extracranial circulation. RECA Interpretation The angiogram demonstrated normal antegrade flow with no evidence of an intracranial anastomosis or early arteriovenous shunting to suggest a dural AVF. LICA Technique Under fluoroscopic and roadmap guidance, the catheter was advanced into the cervical left internal carotid artery and images were obtained in biplane projections of the left anterior intracranial circulation. LICA Interpretation The angiogram demonstrated normal antegrade flow into the left middle and anterior cerebral arteries. There is no evidence of an intracranial aneurysm or early arteriovenous shunting to indicate a cerebral AVM. The capillary and venous phases are unremarkable. LECA Technique Under fluoroscopic and roadmap guidance, the catheter was advanced into the left external carotid artery and images were obtained in biplane projections of the left extracranial circulation. LECA Interpretation The angiogram demonstrated normal antegrade flow with no evidence of an intracranial anastomosis or early arteriovenous shunting to suggest a dural AVF. LVA Technique The left vertebral artery was selectively catheterized under fluoroscopic and roadmap guidance over the Pritchett wire and images were obtained in biplane projections of the posterior intracranial circulation. LVA Interpretation The angiogram demonstrated antegrade flow into the vertebrobasilar artery circulation with early washout due to the dominant right vertebral artery. There is no evidence of an intracranial aneurysm or early arteriovenous shunting to indicate a cerebral AVM. The capillary and venous phases are unremarkable. After reviewing the final images, the catheter was removed and a right common femoral artery angiogram was performed. The angiogram demonstrated the access site well above the bifurcation with no branching vessels arising from the site; therefore, hemostasis was achieved using a 6 Martiniquais Star close closure device followed by manual pressure for 5 minutes. The patient was transported to the neuro ICU in stable clinical and hemodynamic conditions. Complications - none immediate IMPRESSION 1. No evidence of an intracranial aneur ysm or early arteriovenous shunting to indicate a cerebral AVM or dural AV fistula. These findings were discussed with Dr. Bolivar, the on-call vascular neurosurgeon, and the decision was made to do a follow catheter angiogram later this week. I performed this procedure without the involvement of a resident or fellow. Finalized by RANDALL SPARKS M.D. on 01/17/2021 11:21 AM. Dictated by RANDALL SPARKS M.D. on 01/17/2021 11:09 AM. Performing Organization Address City/State/ZIP Code P bk Number [facility] * CBC AND DIFF (01/17/2021 4:20 AM CDT) White Blood 4.6 4.5 - 11.0 K/UL [facility] Cells RBC 4.50 4.4 - 5.5 M/UL [facility] Hemoglobin 13.5 13.5 - 16.5 GM/DL [facility] Hematocrit 37.9 (L) 40 - 50 % [facility] MCV 84.2 80 - 100 FL [facility] MCH 30.0 26 - 34 PG [facility] MCHC 35.6 32.0 - 36.0 G/DL [facility] RDW 12.6 11 - 15 % [facility] Platelet Count 152 150 - 400 K/UL [facility] MPV 8.3 7 - 11 FL [facility] Neutrophils 55 41 - 77 % [facility] Lymphocytes 34 24 - 44 % [facility] Monocytes 10 4 - 12 % [facility] Eosinophils 0 0 - 5 % [facility] Basophils 1 0 - 2 % [facility] Absolute 2.50 1.8 - 7.0 K/UL [facility] Neutrophil Count Absolute Lymph 1.56 1.0 - 4.8 K/UL [facility] Count Absolute 0.47 0 - 0.80 K/UL [facility] Monocyte Count Absolute 0.02 0 - 0.45 K/UL [facility] Eosinophil Count Absolute 0.03 0 - 0.20 K/UL [facility] Basophil Count Specimen Blood Performing Organization Address City/State/ZIP Code P bk Number [facility] [address] [place] [address] * BASIC METABOLIC PANEL (01/17/2021 4:20 AM CDT) Sodium 139 137 - 147 MMOL/L [facility] Potassium 3.4 (L) 3.5 - 5.1 MMOL/L [facility] Chloride 104 98 - 110 MMOL/L [facility] CO2 24 21 - 30 MMOL/L [facility] Anion Gap 11 3 - 12 [facility] Glucose 101 (H) 70 - 100 MG/DL [facility] Blood Urea 19 7 - 25 MG/DL [facility] Nitrogen Creatinine 1.19 0.4 - 1.24 MG/DL [facility] Calcium 9.2 8.5 - 10.6 MG/DL [facility] eGFR Non >60 >60 mL/min [facility] Comment: [place] The eGFR is not validated f or use in drug dosing adjustments. Continue to use estimated creatinine clearance per dosing reference text. Please contact the Clinical Pharmacist for questions. eGFR >60 >60 mL/min [facility] [place] Comment: The eGFR is not validated for use in drug dosing adjustments. Continue to use estimated creatinine clearance per dosing reference text. Please contact the Clinical Pharmacist for questions. Specimen Blood Performing Organization Address City/[facility]/ZIP [facility] [place] [facility] [address] [place] [address] * CTA HEAD WO/W CONTR+POST PRO (01/17/2021 3:25 AM CDT) Specimen Impressions Performed At 1. No significant change in right cerebral subarachno id hemorrhage, mainly [facility] within the right sylvian fissure. 2. 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 By my electronic signature, I attest th at I have personally reviewed the images for this examination and formulated the interpretations and opinions expressed in this report Finalized by Chava Williamson M.D. on 01/17/2021 3:46 AM. Dictated by Shyam Ballard MD on 01/17/2021 3:23 AM. Narrative Performed At EXAM: CTA HEAD [facility] HISTORY: Subarachnoid hemorrhage. TECHNIQUE: Multiple contiguous axial im ages were obtained of the brain before and following the administration of IV contrast. CTA maximum density projection images were obtained of the brain with image post processing. Comparison: External CT head January FINDINGS: Redemonstration of hyperattenuating sub arachnoid hemorrhage within the right sylvian fissure as well as additional m inimal right frontal sulcal subarachnoid hemorrhage. No subdural or parenchymal hemorrhage. The soria white matter interfaces are maintained. Ventricles a nd sulci are otherwise unremarkable for patient age. No midline shift or hernia tion. The basal cisterns are patent. The calvarium is intact. The distal internal carotid, vertebral, and basilar arteries are patent without focal narrowing or occlusion. Dominant right vertebral artery. The anterior, middle, and posterior cerebral arteries are patent without focal narrowing. Some venous opacification limits evaluation, though there appears to be a small saccular aneurysm arising from the dist al M1 segment projecting inferiorly measuring 2 mm (series 602 image 41, 60 3 image 56). Patent right M1 and M2 MCA branches without evidence of vasospasm. No additional aneurysm or arteriovenous malformation is identified. Procedure Note Interface, Radiant Results - 01/17/2021 3:49 AM CDT EXAM: CTA HEAD HISTORY: Subarachnoid hemorrhage. TECHNIQUE: Multiple contiguous axial images were obtained of the brain before and following the administration of IV contrast. CTA maximum density projection images were obtained of the brain with image post processing. Comparison: External CT head January 16, 2021 FINDINGS: Redemonstration of hyperattenuating subarachnoid hemorrhage within the right sylvian fissure as well as additional minimal right frontal sulcal subarachnoid hemorrhage. No subdural or parenchymal hemorrhage. The soria white matter interfaces are maintained. Ventricles and sulci are otherwise unremarkable for patient age. No midline shift or herniation. The basal cisterns are patent. The calvarium is intact. The distal internal carotid, vertebral, and basilar arteries are patent without focal narrowing or occlusion. Dominant right vertebral artery. The anterior, middle, and posterior cerebral arteries are patent without focal narrowing. Some venous opacification limits evaluation, though there appears to be a small saccular aneurysm arising from the distal M1 segment projecting inferiorly measuring 2 mm (series 602 image 41, 603 image 56). Patent right M1 and M2 MCA branches without evidence of vasospasm. No additional aneurysm or arteriovenous malformation is identified. IMPRESSION 1. No significant change in right cerebr al subarachnoid hemorrhage, mainly within the right sylvian fissure. 2. Probable small 2 mm right M1 MCA segm ent saccular aneurysm projecting inferiorly. By my electronic signature, I attest that I have personally reviewed the images for this examination and formulated the interpretations and opinions expressed in this report Finalized by Chava Williamson M.D. on 01/17/2021 3:46 AM. Dictated by Shyam Ballard MD on 01/17/2021 3:23 AM. Performing Organization Address City/State/ZIP Code P bk Number [facility] * PHOSPHORUS (01/17/2021 12:04 AM CDT) Phosphorus 3.4 2.0 - 4.5 MG/DL [facility] Specimen Blood Performing Organization Address City/[facility] P bk Number [facility] [address] [place] [id number] * MAGNESIUM (01/17/2021 12:04 AM CDT) Magnesium 1.8 1.6 - 2.6 mg/dL [facility] Specimen Blood Performing Organization Address [facility] P bk Number [facility] [address] [place] [address] * COMPREHENSIVE METABOLIC PANEL (01/17/2021 12:04 AM CDT) Sodium 138 137 - 147 MMOL/L [facility] Potassium 3.7 3.5 - 5.1 MMOL/L [facility] Chloride 103 98 - 110 MMOL/L [facility] Glucose 101 (H) 70 - 100 MG/DL [facility] Blood Urea 21 7 - 25 MG/DL [facility] Nitrogen Creatinine 1.23 0.4 - 1.24 MG/DL [facility] Calcium 9.5 8.5 - 10.6 MG/DL [facility] Total Protein 7.0 6.0 - 8.0 G/DL [facility] Total Bilirubin 0.9 0.3 - 1.2 MG/DL [facility] Albumin 4.8 3.5 - 5.0 G/DL [facility] Alk Phosphatase 58 25 - 110 U/L [facility] AST (SGOT) 20 7 - 40 U/L [facility] CO2 25 21 - 30 MMOL/L [facility] ALT (SGPT) 18 7 - 56 U/L [facility] Anion Gap 10 3 - 12 [facility] eGFR Non >60 >60 mL/min [facility] Comment: [place] The eGFR is not validated f or use in drug dosing adjustments. Continue to use estimated creatinine clearance per dosing reference text. Please contact the Clinical Pharmacist for questions. eGFR >60 >60 mL/min [facility] [place] Comment: The eGFR is not validated for use in drug dosing adjustments. Continue to use estimated creatinine clearance per dosing reference text. Please contact the Clinical Pharmacist for questions. Specimen Blood Performing Organization Address City/State/ZIP Code P bk Number [facility] [address] [place] [address] * PTT (APTT) (01/17/2021 12:04 AM CDT) APTT 23.8 (L) 24.0 - 36.5 SEC [facility] Specimen Blood Performing Organization Address City/[facility]/ZIP Code P bk Number [facility] [address] [place] [address] * PROTIME INR (PT) (01/17/2021 12:04 AM CDT) INR 1.0 0.8 - 1.2 [facility] LAB Specimen Blood Performing Organization Address City/[facility]/ZIP Code P bk Number [facility] [address] [place] [address] * CBC AND DIFF (01/17/2021 12:04 AM CDT) White Blood 6.0 4.5 - 11.0 K/UL [facility] Cells RBC 4.71 4.4 - 5.5 M/UL [facility] Hemoglobin 13.8 13.5 - 16.5 GM/DL [facility] Hematocrit 39.7 (L) 40 - 50 % [facility] MCV 84.4 80 - 100 FL [facility] MCH 29.4 26 - 34 PG [facility] MCHC 34.8 32.0 - 36.0 G/DL [facility] RDW 12.8 11 - 15 % [facility] Platelet Count 163 150 - 400 K/UL [facility] MPV 8.4 7 - 11 FL [facility] Neutrophils 73 41 - 77 % [facility] Lymphocytes 20 (L) 24 - 44 % [facility] Monocytes 7 4 - 12 % [facility] Eosinophils 0 0 - 5 % [facility] Basophils 0 0 - 2 % [facility] Absolute 4.35 1.8 - 7.0 K/UL [facility] Neutrophil Count Absolute Lymph 1.21 1.0 - 4.8 K/UL [facility] Count Absolute 0.41 0 - 0.80 K/UL [facility] Monocyte Count Absolute 0.02 0 - 0.45 K/UL [facility] Eosinophil Count Absolute 0.03 0 - 0.20 K/UL [facility] Basophil Count Specimen Blood Performing Organization Address City/State/ZIP Code P bk Number [facility] [address] [place] [address] * COVID-19 (SARS-COV-2) PCR (01/17/2021 12:02 AM CDT) COVID-19 FLOCK[facility] (SARS-CoV-2) NASOPHARYNGEAL PCR Source COVID-19 NOT DETECTED DN-NOT DETECTED [facility] (SARS-CoV-2) Comment: PCR This assay is designed to detect the N2 and E genes of SARS-CoV-2 using nucleic acid amplification. A Not Detected result does not preclude the possibility of SARS-CoV-2 infection since the adequacy of sample collection and/or low viral burden may result in the presence of viral nucleic acids below the analytical sensitivity of this test method. Test results should be used along with other clinical and laboratory data in making the diagnosis. Test parameters have not been validated for screening in asymptomatic patients. This test has not been FDA cleared or approved. This test is authorized for use under the FDA Emergency Use Authorization and performance characteristics have been verified by the [facility] clinical laboratory. Fact sheet for providers: https://www.fda.gov/media/5536 13/download Fact sheet for patients: https://www.fda.gov/media/0663 12/download Specimen Flocked Swab - Nasopharyngeal Performing Organization Address City/State/ZIP Code P bk Number MA[facility] LAB [address] [place] [address] documented in this encounter Visit Diagnoses Diagnosis SAH (subarachnoid hemorrhage) (HCC) - P rimary Subarachnoid hemorrhage Primary thunderclap headache Headache Hypokalemia Hypopotassemia Constipation Unspecified constipation Leukopenia Leukocytopenia, unspecified documented in this encounter Admitting Diagnoses Diagnosis SAH (subarachnoid hemorrhage) (HCC) Subarachnoid hemorrhage documented in this encounter Administered Medications Action Date Dose Rate Site Medication Order MAR Action 01/20/2021 1:51 PM CDT 650 mg acetaminophen (TYLENOL) tablet 650 mg Given 650 mg, Oral, EVERY 4 HOURS PRN, Starting on Sat01/16/21 at 2355, Until Sat01/20/21 at 1811, Temp > ..., 38.3 C, TOTAL ACETAMINOPHEN DOSE NOT TO EXCEED 4GM DAILY 650 mg Given 01/18/2021 8:36 AM CDT 650 mg Given 01/17/2021 9:37 PM CDT 650 mg Given 01/17/2021 12:07 PM CDT 650 mg Given 01/17/2021 1:33 AM CDT 01/20/2021 9:24 AM CDT 0.25 mg ALPRAZolam (XANAX) tablet 0.25 mg Given 0.25 mg, Oral, EVERY 4 HOURS PRN, Starting on Sat01/17/21 at 2111, Until Sat01/20/21 at 1811, Anxiety PO 0.25 mg Given 01/19/2021 9:00 PM CDT 0.25 mg Given 01/18/2021 8:48 PM CDT 0.25 mg Given 01/17/2021 9:37 PM CDT 01/17/2021 2:43 AM CDT 1 g/hr 20 mL/hr aminocaproic acid (AMICAR) 2 g in sodium Given - New chloride 0.9% (NS) IV infusion Bag 1 g/hr (20 mL/hr), Intravenous, 40 mL, CONTINUOUS, Starting on Sat01/17/21 at 0200, Until Sat01/17/21 at 0359 01/17/2021 1:41 AM CDT 4 g 266 mL/hr aminocaproic acid (AMICAR) 4 g in Given - New dextrose 5% (D5W) IVPB Bag 4 g, Intravenous, 266 mL, Administer over 1 Hours, ONCE, 1 dose, On Sat01/17/21 at 0115 calcium gluconate 1 g in sodium chlorid e 0.9% (NS) 110 mL IVPB (MB+) 1 g, Intravenous, 110 mL, Administer over 60 Minutes, 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 Recheck ionized calcium level 4 hours after completion of infusion. Notify physician if ionized calcium < 1.0 mg/dL. Each 1 gm delivers 4.6 mEq calcium 01/19/2021 9:01 PM CDT 100 mg docusate (COLACE) capsule 100 mg Given 100 mg, Oral, TWICE DAILY, First dose o n Sat01/17/21 at 0000, Until Discontinued, Hold for loose stools 100 mg Given 01/19/2021 8:34 AM CDT 100 mg Given 01/18/2021 8:48 PM CDT 100 mg Given 01/18/2021 8:32 AM CDT 100 mg Given 01/17/2021 8:04 PM CDT 100 mg Given 01/17/2021 12:28 AM CDT 01/17/2021 9:46 AM CDT 50 mcg fentaNYL citrate PF (SUBLIMAZE) Given injection INTRA-PROCEDURE MED, Starting on Sat01/17/21 at 0853, Until Sat01/17/21 at 0946 50 mcg Given 01/17/2021 8:53 AM CDT 01/20/2021 10:45 AM CDT 50 mcg fentaNYL citrate PF (SUBLIMAZE) Given injection INTRA-PROCEDURE MED, Starting on Sat01/20/21 at 1013, Until Sat01/20/21 at 1045 50 mcg Given 01/20/2021 10:13 AM CDT flumazeniL (ROMAZICON) injection 0.2 mg 0.2 mg, Intravenous, NEEDED, Startin g on Sat01/20/21 at 0925, Until Sat01/20/21 at 1811, Respiratory Depression, Intra-procedure (IR) 01/20/2021 10:53 AM CDT 110 mL iohexoL (OMNIPAQUE-300) 300 mg/mL Given injection 110 mL 110 mL, Intra-arterial, ONCE, 1 dose, O n Sat01/20/21 at 1100, NOTE: This is a HIGH ALERT Medication. 01/17/2021 9:59 AM CDT 120 mL iohexoL (OMNIPAQUE-300) 300 mg/mL Given injection 120 mL 120 mL, Intra-arterial, ONCE, 1 dose, O n Sat01/17/21 at 1000, NOTE: This is a HIGH ALERT Medication. 01/17/2021 3:26 AM CDT 60 mL 4 mL/hr iohexoL (OMNIPAQUE-350) 350 mg/mL Given injection 60 mL 60 mL, Intravenous, at 4 mL/hr, ONCE, 1 dose, On Sat01/17/21 at 0330, NOTE: This is a HIGH ALERT Medication. 01/17/2021 12:28 AM CDT 500 mg levETIRAcetam (KEPPRA) IV push 500 mg Given 500 mg, Intravenous, 5 mL, TWICE DAILY, First dose on Sat01/17/21 at 0000, Until Discontinued, IV Push should be administered over 1 minute for every 500mg. 01/20/2021 9:09 AM CDT 500 mg levETIRAcetam (KEPPRA) tablet 500 mg Given 500 mg, Oral, TWICE DAILY, First dose o n Sat01/17/21 at 0900, Until Discontinue d 500 mg Given 01/19/2021 9:00 PM CDT 500 mg Given 01/19/2021 8:34 AM CDT 500 mg Given 01/18/2021 8:48 PM CDT 500 mg Given 01/18/2021 8:32 AM CDT 500 mg Given 01/17/2021 8:04 PM CDT 500 mg Given 01/17/2021 12:07 PM CDT 01/19/2021 5:41 AM CDT 1 g 25 mL/hr magnesium sulfate 1 g/D5W 100 mL IVPB Given - New 1 g, Intravenous, 100 mL, Administer Bag over 3-4 Hours, NEEDED, Starting on Sat01/17/21 at 0212, Until Sat 1 at 1811, Other..., magnesium replacemen t (see admin instructions), If urine output < 30 mL/hr, SCr >2 mg/dL, check with physician prior to giving magnesium replacement. For Serum Magnesium > 2.1 mg/dL, No replacement necessary. For Serum Magnesium 1.8 - 2. 0 mg/dL, give Magnesium Sulfate 1 grams I V over 4 hours. For Serum Magnesium 1.6 - 1.7 mg/dL, give Magnesium Sulfate 2 grams IV over 8 hours (each 1gm over 4 hours). For Serum Magnesium 1.3 - 1.5 mg/dL, give Magnesium Sulfate 4 grams I V over 16 hours (each 1gm over 4 hours). For Serum Magnesium < = 1.2 mg/dL, give Magnesium Sulfate 6 grams IV over 18 hours (each 1gm over 3 hours). Recheck serum magnesium level 24 hours after START of appropriate replacement dose. Repeat this standing order x 1. Notify physician if serum magnesium < 2.1 mg/d L after two replacements. 1 g 25 mL/hr Given - New Bag 01/18/2021 6:40 AM CDT 01/19/2021 9:00 PM CDT 3 mg melatonin (MELATIN) tablet 3 mg Given 3 mg, Oral, AT BEDTIME PRN, Starting on Sat01/18/21 at 2020, Until Sat 1 at 1811, Insomnia 3 mg Given 01/18/2021 8:48 PM CDT 01/17/2021 9:48 AM CDT 0.5 mg midazolam (VERSED) injection Given INTRA-PROCEDURE MED, Starting on Sat01/17/21 at 0856, Until Sat01/17/21 at 0948 1 mg Given 01/17/2021 8:56 AM CDT 01/20/2021 10:15 AM CDT 1 mg midazolam (VERSED) injection Given INTRA-PROCEDURE MED, Starting on Sat01/20/21 at 1015, Until Sat01/20/21 at 1015 01/19/2021 8:34 AM CDT 10 mL milk of magnesia (CONC) oral suspension Given 10 mL 10 mL, Oral, DAILY, First dose on Sat01/17/21 at 0900, Until Discontinued, May hold if BM within 24 hours of dose. 10 mL CONC = 30 mL MOM 10 mL Given 01/18/2021 8:32 AM CDT nalOXone (NARCAN) injection 0.08 mg 0.08 mg, Intravenous, NEEDED, Starting on Sat01/20/21 at 0925, Until Sat01/20/21 at 1811, Respiratory Depression, -FOR RESPIRATORY RATE < 7/MIN: DIlute one ampule naloxone 0.4 m g in 9 mL NS for injection (for a total o f 10 mL of dilution). Inject 2 mL of diluted naloxone every 2 minutes until respiratory rate improves (RR >7/min), and/or drowsiness abates. Call physician. -IF PATIENT IS APNEIC: Give naloxone 0.4 mg every 2 minutes until respiratory rate improves (RR >7/min) and call Rapid Response Team. PROTECT FROM LIGHT., Intra-procedure (IR) 01/20/2021 9:09 AM CDT 60 mg niMODipine (NIMOTOP) capsule 60 mg Given 60 mg, Oral, EVERY 4 HOURS, 126 doses, First dose on Sat01/17/21 at 0000, Las t dose on Sat02/06/21 at 2000, Hold for SBP < 100 mmHg 60 mg Given 01/20/2021 3:48 AM CDT 60 mg Given 01/20/2021 1:08 AM CDT 60 mg Given 01/19/2021 9:00 PM CDT 60 mg Given 01/19/2021 3:28 PM CDT 60 mg Given 01/19/2021 12:01 PM CDT 60 mg Given 01/19/2021 8:34 AM CDT 60 mg Given 01/19/2021 12:57 AM CDT 60 mg Given 01/18/2021 8:48 PM CDT 60 mg Given 01/18/2021 4:30 PM CDT 60 mg Given 01/18/2021 12:23 PM CDT 60 mg Given 01/18/2021 8:32 AM CDT 60 mg Given 01/18/2021 4:38 AM CDT 60 mg Given 01/18/2021 12:23 AM CDT 60 mg Given 01/17/2021 8:04 PM CDT 60 mg Given 01/17/2021 4:09 PM CDT 60 mg Given 01/17/2021 12:07 PM CDT 60 mg Given 01/17/2021 4:11 AM CDT 60 mg Given 01/17/2021 12:28 AM CDT 01/20/2021 1:04 PM CDT 4 mg ondansetron (ZOFRAN) injection 4 mg Given 4 mg, Intravenous, EVERY 6 HOURS PRN, Starting on Sat01/16/21 at 2355, Until Sat01/20/21 at 1811, Nausea/Vomiting Injectable 01/20/2021 1:51 PM CDT 5 mg oxyCODONE (ROXICODONE) tablet 5-10 mg Given 5-10 mg, Oral, EVERY 4 HOURS PRN, Starting on Sat01/16/21 at 2355, Until Sat01/20/21 at 1811, Pain PO, Other... , Moderate/Severe Pain, Give if patient tolerating PO if Maurepas not effective. 5 mg Given 01/20/2021 12:57 PM CDT 5 mg Given 01/20/2021 9:24 AM CDT 5 mg Given 01/19/2021 9:01 PM CDT 5 mg Given 01/19/2021 1:38 PM CDT 5 mg Given 01/18/2021 4:30 PM CDT 5 mg Given 01/18/2021 9:50 AM CDT 5 mg Given 01/17/2021 1:08 PM CDT polyethylene glycol 3350 (MIRALAX) packet 17 g 17 g (1 packet), Oral, DAILY, First dos e on Sat01/20/21 at 0900, Until Discontinued, 8.5 GRAMS = 0.5 PACKET 17 GRAMS = 1 PACKET 34 GRAMS = 2 PACKETS potassium chloride in water IVPB 10 mEq 10 mEq, Intravenous, 50 mL, Administer over 30-120 Minutes, NEEDED, Startin g on Sat01/17/21 at 0212, Until Sat01/20/21 at 1811, Other..., For potassium replacement, see admin instructions, If urine output < 30mL/hr , SCr > 2mg/dL, or CrCl =/< 30 mL/min, check with Physician prior to giving K+ replacement. For K 3.6 - 4 mmol/L, giv e 40 mEq PO/NG x1 dose. No recheck. For K 3.1 - 3.5 mmol/L, give 60 mEq PO/NG x1 dose OR 60 mEq IV over 6 hours. Rechec k after 2 hours. For K =< 3 mmol/L, administer KCl 40 mEq IV (10mEq x 4 doses) AND 40 mEq PO/NG x1 dose AND notify physician. INFUSION TIME: - Infuse each potassium chloride 10mEq IV over 2hr (5mEq/hr.), if: The patient has a peripheral line. -OR- The patient has other running sources of IV potassium. - Infuse each potassium chloride 10mEq IV over 1hr (10mEq/hr.), if: The patient is non-telemetry, and The patient has NO other running source s of IV potassium, and The patient has a central line. - Infuse each potassium chloride 10mEq IV over 30min (20mEq/hr.), if: The patient is on telemetry, and The patient has NO othe r running sources of IV potassium, and The patient has a central line. Recheck serum potassium two hours after completion of appropriate replacement dose. Repeat this standing order x 2. Notify physician if serum potassium < 3.3 mmol/L after three replacements. NOTE: This is a HIGH ALERT Medication. potassium chloride oral solution 40-60 mEq 40-60 mEq, Per NG tube, NEEDED, Starting on Sat01/17/21 at 0212, Until Sat01/20/21 at 181, Other..., For potassium replacement, See admin instructions, If urine output < 30mL/hr , SCr > 2mg/dL, or CrCl =/< 30 mL/min, check with Physician prior to giving K+ replacement. For K 3.6 - 4 mmol/L, giv e 40 mEq PO/NG x1 dose. No recheck. For K 3.1 - 3.5 mmol/L, give 60 mEq PO/NG x1 dose OR 60 mEq IV (10mEq x6 doses). Recheck after 2 hours. For K =< 3 mmol/L, administer KCl 40 mEq IV (10mEq x4 doses) AND 40 mEq PO/NG x1 dose AND notify physician. Recheck serum potassium two hours after completion of appropriate replacement dose. Repeat this standing order x 2. Notify physician if serum potassium < 3.3 mmol/L after three replacements. 01/20/2021 7:01 AM CDT 40 mEq potassium chloride SR (K-DUR) tablet Given 40-60 mEq 40-60 mEq, Oral, NEEDED, Starting on Sat01/17/21 at 0212, Until Sat 1 at 181, Other..., For potassium replacement, Seeadmin instructions, I f urine output < 30mL/hr, SCr > 2mg/dL, o r CrCl =/< 30 mL/min, check with Physicia n prior to giving K+ replacement. For K 3.6 - 4 mmol/L, give 40 mEq PO/NG x1 dose. No recheck. For K 3.1 - 3.5 mmol/L, give 60 mEq PO/NG x1 dose OR 60 mEq IV (10mEq x6 doses). Recheck after 2 hours. For K =< 3 mmol/L, administer KCl 40 mEq IV (10mEq x4 doses) AND 40 mEq PO/NG x1 dose AND notify physician. Recheck serum potassium two hours after completion of appropriate replacement dose. Repeat this standing order x 2. Notify physician if serum potassium < 3.3 mmol/L after three replacements. Give with meal or full glass of water 40 mEq Given 01/19/2021 5:41 AM CDT 60 mEq Given 01/17/2021 5:59 AM CDT 01/18/2021 8:48 PM CDT 1 tablet senna/docusate (SENOKOT-S) tablet 1 Given tablet 1 tablet, Oral, TWICE DAILY, First dose on Sat01/17/21 at 0000, Until Discontinued, Hold for loose stools. If patient unable to take tablet, give 10 mL of senna/docusate (SENOKOT-S) solution. Send [employer] message to pharmacy., If patient unable to take tablet, give 10 mL of senna/docusate (SENOKOT-S) solution. 1 tablet Given 01/18/2021 8:32 AM CDT 1 tablet Given 01/17/2021 8:04 PM CDT 1 tablet Given 01/17/2021 12:28 AM CDT 01/20/2021 9:09 AM CDT 2 tablets senna/docusate (SENOKOT-S) tablet 2 Given tablet 2 tablet, Oral, TWICE DAILY, First dose (after last modification) on Sat01/19/21 at 0900, Until Discontinued, Hold for loose stools. If patient unabl e to take tablet, give 10 mL of senna/docusate (SENOKOT-S) solution. Send [employer] message to pharmacy., If patient unable to take tablet, give 10 mL of senna/docusate (SENOKOT-S) solution. 2 tablets Given 01/19/2021 9:00 PM CDT 2 tablets Given 01/19/2021 8:34 AM CDT 01/17/2021 3:25 AM CDT 50 mL 4 mL/hr sodium chloride PF 0.9% injection 50 mL Given 50 mL, Intravenous, at 4 mL/hr, ONCE, 1 dose, On Sat01/17/21 at 0330, DO NOT SEND this medication unless it is requested. This med is usually availabl e in floor stock., Intra-procedure (IR) documented in this encounter Discontinued Medications Start Date End Date Medication Sig Discontinue Reason 01/20/2021 ibuprofen (ADVIL) 200 mg Take 200 mg tablet by mouth every 6 hours as needed for Pain (takes a couple times a week). Take with food. documented as of this encounter Historical Medications * This list may reflect changes made after this encounter. Start Date End Date Medication Sig Dispensed Refills famciclovir (FAMVIR) 500 Take 500 mg 0 mg tablet by mouth every 8 hours. 01/20/2021 ibuprofen (ADVIL) 200 mg Take 200 mg 0 tablet by mouth every 6 hours as needed for Pain (takes a couple times a week). Take with food. added in this encounter Active and Recently Administered Medications Times are shown in CDT. 01/19/2021 01/20/2021 Medication Order 01/18/2021 0834 (Given - Provider: Vazquez Perez)210 (Given - Provider: Mena Patterson RN) 0926 (Med Not Given - Provider: Elba keys RN - Reason: Med not available)1000 (JUN Hold - Provider: Pedro, Orders Discontinue - Reason: Patient not available/off unit)1059 (MAR Unhold - Provider: Pedro, Orders Discontinue) docusate (COLACE) capsule 100 mg 0832 (Given - 100 mg, Oral, TWICE DAILY, First dose on Provider: Isaak deluna Sat01/17/21 at 0000, Until ANGELA Hair)2048 Discontinued, Hold for loose stools (Given - Provide r: Mena Patterson RN) 1053 (Given - Provider: Vazquez Wolf(R)(),LRT) iohexoL (OMNIPAQUE-300) 300 mg/mL injection 110 mL (COMPLETED) 110 mL, Intra-arterial, ONCE, 1 dose, O n 01/20/21 at 1100, NOTE: This is a HIGH ALERT Medication. 0834 (Given - Provider: Vazquez Perez)2100 (Given - Provider: Mena Patterson RN) 0909 (Given - Provider: Elba Casper RN) levETIRAcetam (KEPPRA) tablet 500 mg 0832 (Given - (CANCELED) Provider: Simin 500 mg, Oral, TWICE DAILY, First dose on ANGELA Hair)2 048 01/17/21 at 0900, Until Discontinued (Given - Pr ovider: Mena Patterson RN) 1133 (Canceled Entry - Provider: Elba Casepr, RN) midazolam (VERSED) injection 1 mg 1 mg, Intravenous, ONCE, 1 dose, On Sat01/20/21 at 0930, For pre-procedural anxiolysis., Intra-procedure (IR) 0834 (Given - Provider: Vazquez Perez) 0926 (Med Not Given - Provider: Elba keys RN - Reason: Other (Comment) - Comment: BM 01/19)1000 (MAR Hold - Provider: Pedro, Orders Discontinue - Reason: Patient not available/off unit)1059 (MAR Unhold - Provider: Pedro, Orders Discontinue) milk of magnesia (CONC) oral suspension 0832 (Given - 10 mL Provider: Simin 10 mL, Oral, DAILY, First dose on Sat ANGELA Hair) 01/17/21 at 0900, Until Discontinued, May hold if BM within 24 hours of dose. 10 mL CONC = 30 mL MOM 0057 (Given - Provider: Mena Patterson RN - Comment: order parameters; SBP 95)0400 (Med Not Given - Provider: Mena Patterson RN - Reason: Other (Comment) - Comment: held per parameters; SBP 90)0834 (Given - Provider: Simin Hair RN) 1201 (Given - Provider: Simin Hair RN)1528 (Given - Provider: Simin Hair RN)2100 (Given - Provider: Mena Patterson RN) 0108 (Given - Provider: Mena Patterson RN - Comment: SBP below 100 at midnight)0348 (Given - Provider: Mena Patterson RN)0909 (Given - Provider: Elba Casper RN)1000 (MAR Hold - Provider: Pedro, Orders Discontinue - Reason: Patient not available/off unit)1059 (MAR Unhold - Provider: Pedro, Orders Discontinue) niMODipine (NIMOTOP) capsule 60 mg 0023 (Given - (CANCELED) Provider: Taylor 60 mg, Oral, EVERY 4 HOURS, 126 doses, ANGELA Hendrix)0 438 First dose on Sat01/17/21 at 0000, Last (Given - Pr ovider: dose on Sat02/06/21 at 2000, Hold for Taylor Javon brothers, SBP < 100 mmHg RN)0832 (Given - Provider: Simin Hair RN)1223 (Given - Provider: Simin Hair RN)1630 (Given - Provider: Simin Hair RN)2048 (Given - Provider: Mena Patterson RN) 0926 (Med Not Given - Provider: Elba keys RN - Reason: Other (Comment) - Comment: BM 01/19)1000 (MAR Hold - Provider: Pedro, Orders Discontinue - Reason: Patient not available/off unit)1059 (MAR Unhold - Provider: Pedro, Orders Discontinue) polyethylene glycol 3350 (MIRALAX) packet 17 g 17 g (1 packet), Oral, DAILY, First dos e on Sat01/20/21 at 0900, Until Discontinued, 8.5 GRAMS = 0.5 PACKET 17 GRAMS = 1 PACKET 34 GRAMS = 2 PACKETS senna/docusate (SENOKOT-S) tablet 1 0832 (Given - tablet (CANCELED) Provider: Simin 1 tablet, Oral, TWICE DAILY, First dose ANGELA Hair)20 48 on Sat01/17/21 at 0000, Until (Given - Provider: Discontinued, Hold for loose stools. If Mena Patterson RN) patient unable to take tablet, give 10 mL of senna/docusate (SENOKOT-S) solution. Send [employer] message to pharmacy., If patient unable to take tablet, give 10 mL of senna/docusate (SENOKOT-S) solution. 0834 (Given - Provider: Vazquez Perez)2100 (Given - Provider: Mena Patterson RN) 0909 (Given - Provider: Elba Casper RN)1000 (MAR Hold - Provider: Pedro, Orders Discontinue - Reason: Patient not available/off unit)1059 (MAR Unhold - Provider: Pedro, Orders Discontinue) senna/docusate (SENOKOT-S) tablet 2 tablet 2 tablet, Oral, TWICE DAILY, First dose (after last modification) on Yessenia 01/19/21 at 0900, Until Discontinued, Hold for loose stools. If patient unabl e to take tablet, give 10 mL of senna/docusate (SENOKOT-S) solution. Send in[employer] message to pharmacy., If patient unable to take tablet, give 10 mL of senna/docusate (SENOKOT-S) solution. 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 specialist and then let whatever is leftover continue to infuse post-op until the bag is finished., Intra-procedure (IR) 01/19/2021 01/20/2021 Medication Order 01/18/2021 1000 (JUN Hold - Provider: Pedro, Orders Di scontinue - Reason: Patient not available/off unit)1059 (JUN Unhold - Provider: Pedro, Orders Discontinue)1351 (Given - Provider: Elba Casper, ANGELA) acetaminophen (TYLENOL) tablet 650 mg 0836 (Given - 650 mg, Oral, EVERY 4 HOURS PRN, Provider: Simin Starting on 01/16/21 at 2355, Until Laxmi RN) Sat01/20/21 at 1811, Temp > ..., 38.3 C, TOTAL ACETAMINOPHEN DOSE NOT TO EXCEED 4GM DAILY 2100 (Given - Provider: Mena Patterson, ANGELA) 0924 (Given - Provider: Elba Casper, ANGELA)1000 (JUN Hold - Provider: Pedro, Orders Discontinue - Reason: Patient not available/off unit)1059 (JUN Unhold - Provider: Pedro, Orders Discontinue) ALPRAZolam (XANAX) tablet 0.25 mg 2048 (Given - 0.25 mg, Oral, EVERY 4 HOURS PRN, Provider: Mena Starting on 01/17/21 at 2111, Until ANGELA Patterson) Sat01/20/21 at 1811, Anxiety PO 1000 (JUN Hold - Provider: Pedro, Orders Di scontinue - Reason: Patient not available/off unit)1059 (JUN Unhold - Provider: Pedro, Orders Discontinue) calcium gluconate 1 g in sodium chlorid e 0.9% (NS) 110 mL IVPB (MB+)(Linked Grou p 1) 1 g, Intravenous, 110 mL, Administer over 60 Minutes, 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 Recheck ionized calcium level 4 hours after completion of infusion. Notify physician if ionized calcium < 1.0 mg/dL. Each 1 gm delivers 4.6 mEq calcium 1013 (Given - Provider: Jon Reid, ANGELA)1045 (Given - Provider: Jon Reid, ANGELA) fentaNYL citrate PF (SUBLIMAZE) injection (COMPLETED) INTRA-PROCEDURE MED, Starting on Sat01/20/21 at 1013, Until Discontinued flumazeniL (ROMAZICON) injection 0.2 mg 0.2 mg, Intravenous, NEEDED, Startin g on Sat01/20/21 at 0925, Until Sat01/20/21 at 1811, Respiratory Depression, Intra-procedure (IR) hydrALAZINE (APRESOLINE) injection 10 m g 10 mg, Intravenous, EVERY 6 HOURS PRN, Starting on Sat01/16/21 at 2355, Until Sat01/20/21 at 1811, Systolic Blood Pressure..., >140 mmHg or MAP >110 mmHg labetaloL (NORMODYNE) injection 10 mg 10 mg, Intravenous, EVERY 15 MIN PRN, Starting on Sat01/16/21 at 2355, Until Sat01/20/21 at 1811, Other..., For SBP > 140 mmHg or MAP > 110 mmHg, Hold for HR < 60/min and/or MAP < 110 mmHg or SB P < 160 mmHg. 0541 (Given - New Bag - Provider: Mena sheldon RN) 1000 (JUN Hold - Provider: Pedro, Orders Di scontinue - Reason: Patient not available/off unit)1059 (JUN Unhold - Provider: Pedro, Orders Discontinue) magnesium sulfate 1 g/D5W 100 mL 0640 (Given - New IVPB(Linked Group 2) Bag - Provider: 1 g, Intravenous, 100 mL, Administer Taylor Vidol i, over 3-4 Hours, NEEDED, Starting on RN) Sat01/17/21 at 0212, Until Sat 1 at 181, Other..., magnesium replacemen t (see admin instructions), If urine output < 30 mL/hr, SCr >2 mg/dL, check with physician prior to giving magnesium replacement. For Serum Magnesium > 2.1 mg/dL, No replacement necessary. For Serum Magnesium 1.8 - 2. 0 mg/dL, give Magnesium Sulfate 1 grams I V over 4 hours. For Serum Magnesium 1.6 - 1.7 mg/dL, give Magnesium Sulfate 2 grams IV over 8 hours (each 1gm over 4 hours). For Serum Magnesium 1.3 - 1.5 mg/dL, give Magnesium Sulfate 4 grams I V over 16 hours (each 1gm over 4 hours). For Serum Magnesium < = 1.2 mg/dL, give Magnesium Sulfate 6 grams IV over 18 hours (each 1gm over 3 hours). Recheck serum magnesium level 24 hours after START of appropriate replacement dose. Repeat this standing order x 1. Notify physician if serum magnesium < 2.1 mg/d L after two replacements. 2100 (Given - Provider: Mena Patterson RN) 1000 (JUN Hold - Provider: Pedro, Orders Di scontinue - Reason: Patient not available/off unit)1059 (JUN Unhold - Provider: Pedro, Orders Discontinue) melatonin (MELATIN) tablet 3 mg 2047 (Given - 3 mg, Oral, AT BEDTIME PRN, Starting on Provider: Stephanie peterson Sat01/18/21 at 2020, Until Sat01/20/21 ANGELA Patterson) at 1811, Insomnia 1015 (Given - Provider: Jon Reid RN) midazolam (VERSED) injection (COMPLETED ) INTRA-PROCEDURE MED, Starting on Sat01/20/21 at 1015, Until Discontinued nalOXone (NARCAN) injection 0.08 mg 0.08 mg, Intravenous, NEEDED, Starting on Sat01/20/21 at 0925, Until Sat01/20/21 at 181, Respiratory Depression, -FOR RESPIRATORY RATE < 7/MIN: DIlute one ampule naloxone 0.4 m g in 9 mL NS for injection (for a total o f 10 mL of dilution). Inject 2 mL of diluted naloxone every 2 minutes until respiratory rate improves (RR >7/min), and/or drowsiness abates. Call physician. -IF PATIENT IS APNEIC: Give naloxone 0.4 mg every 2 minutes until respiratory rate improves (RR >7/min) and call Rapid Response Team. PROTECT FROM LIGHT., Intra-procedure (IR) 1000 (JUN Hold - Provider: Pedro, Orders Di scontinue - Reason: Patient not available/off unit)1059 (JUN Unhold - Provider: Pedro, Orders Discontinue)1304 (Given - Provider: Elba Casper, RN) ondansetron (ZOFRAN) injection 4 mg 4 mg, Intravenous, EVERY 6 HOURS PRN, Starting on Sat01/16/21 at 2355, Until Sat01/20/21 at 1811, Nausea/Vomiting Injectable 1338 (Given - Provider: Vazquez Perez)2101 (Given - Provider: Mena Patterson RN) 0924 (Given - Provider: Elba Casper, ANGELA)1000 (JUN Hold - Provider: Pedro, Orders Discontinue - Reason: Patient not available/off unit)1059 (JUN Unhold - Provider: Pedro, Orders Discontinue)1257 (Given - Provider: Elba Capser, ANGELA) 1351 (Given - Provider: Elba Casper, ANGELA) oxyCODONE (ROXICODONE) tablet 5-10 mg 0950 (Given - 5-10 mg, Oral, EVERY 4 HOURS PRN, Provider: Simin Starting on Sat01/16/21 at 2355, Until ANGELA Hair)16 30 Sat01/20/21 at 1811, Pain PO, Other..., (Given - Pr ovider: Moderate/Severe Pain, Give if patient Simin Hair RN) tolerating PO if Maurepas not effective. 0541 (See Alternative - Provider: Mena sheldon RN) 0701 (See Alternative - Provider: Mena sheldon RN)1000 (JUN Hold - Provider: Pedro, Orders Discontinue - Reason: Patient not available/off unit)1059 (JUN Unhold - Provider: Pedro, Orders Discontinue) potassium chloride in water IVPB 10 mEq(Linked Group 3) 10 mEq, Intravenous, 50 mL, Administer over 30-120 Minutes, NEEDED, Startin g on Sat01/17/21 at 0212, Until Sat01/20/21 at 1811, Other..., For potassium replacement, see admin instructions, If urine output < 30mL/hr , SCr > 2mg/dL, or CrCl =/< 30 mL/min, check with Physician prior to giving K+ replacement. For K 3.6 - 4 mmol/L, giv e 40 mEq PO/NG x1 dose. No recheck. For K 3.1 - 3.5 mmol/L, give 60 mEq PO/NG x1 dose OR 60 mEq IV over 6 hours. Rechec k after 2 hours. For K =< 3 mmol/L, administer KCl 40 mEq IV (10mEq x 4 doses) AND 40 mEq PO/NG x1 dose AND notify physician. INFUSION TIME: - Infuse each potassium chloride 10mEq IV over 2hr (5mEq/hr.), if: The patient has a peripheral line. -OR- The patient has other running sources of IV potassium. - Infuse each potassium chloride 10mEq IV over 1hr (10mEq/hr.), if: The patient is non-telemetry, and The patient has NO other running source s of IV potassium, and The patient has a central line. - Infuse each potassium chloride 10mEq IV over 30min (20mEq/hr.), if: The patient is on telemetry, and The patient has NO othe r running sources of IV potassium, and The patient has a central line. Recheck serum potassium two hours after completion of appropriate replacement dose. Repeat this standing order x 2. Notify physician if serum potassium < 3.3 mmol/L after three replacements. NOTE: This is a HIGH ALERT Medication. 0541 (See Alternative - Provider: Mena sheldon RN) 0701 (See Alternative - Provider: Mena sheldon RN)1000 (JUN Hold - Provider: Pedro, Orders Discontinue - Reason: Patient not available/off unit)1059 (JUN Unhold - Provider: Pedro, Orders Discontinue) potassium chloride oral solution 40-60 mEq(Linked Group 3) 40-60 mEq, Per NG tube, NEEDED, Starting on Sat01/17/21 at 0212, Until Sat01/20/21 at 1811, Other..., For potassium replacement, See admin instructions, If urine output < 30mL/hr , SCr > 2mg/dL, or CrCl =/< 30 mL/min, check with Physician prior to giving K+ replacement. For K 3.6 - 4 mmol/L, giv e 40 mEq PO/NG x1 dose. No recheck. For K 3.1 - 3.5 mmol/L, give 60 mEq PO/NG x1 dose OR 60 mEq IV (10mEq x6 doses). Recheck after 2 hours. For K =< 3 mmol/L, administer KCl 40 mEq IV (10mEq x4 doses) AND 40 mEq PO/NG x1 dose AND notify physician. Recheck serum potassium two hours after completion of appropriate replacement dose. Repeat this standing order x 2. Notify physician if serum potassium < 3.3 mmol/L after three replacements. 0541 (Given - Provider: Mena Patterson RN) 0701 (Given - Provider: Mena Patterson RN) 1000 (MAR Hold - Provider: Pedro, Orders Discontinue - Reason: Patient not available/off unit)1059 (MAR Unhold - Provider: Pedro, Orders Discontinue) potassium chloride SR (K-DUR) tablet 40-60 mEq(Linked Group 3) 40-60 mEq, Oral, NEEDED, Starting on Sat01/17/21 at 0212, Until Sat 1 at 1811, Other..., For potassium replacement, Seeadmin instructions, I f urine output < 30mL/hr, SCr > 2mg/dL, o r CrCl =/< 30 mL/min, check with Physicia n prior to giving K+ replacement. For K 3.6 - 4 mmol/L, give 40 mEq PO/NG x1 dose. No recheck. For K 3.1 - 3.5 mmol/L, give 60 mEq PO/NG x1 dose OR 60 mEq IV (10mEq x6 doses). Recheck after 2 hours. For K =< 3 mmol/L, administer KCl 40 mEq IV (10mEq x4 doses) AND 40 mEq PO/NG x1 dose AND notify physician. Recheck serum potassium two hours after completion of appropriate replacement dose. Repeat this standing order x 2. Notify physician if serum potassium < 3.3 mmol/L after three replacements. Give with meal or full glass of water Order Group 1: calcium gluconate 1 g in sodium chlorid e 0.9% (NS) 110 mL IVPB (MB+)Jump to med 1 g, Intravenous, 110 mL, Administer ov er 60 Minutes, NEEDED (STRUCTURAL TEST ENGINEER FROM RX), Starting on Sat01/17/21 at 0212, Until Sat01/20/21 at 1811, Other..., For calcium replacement, see admin instructions
For ionized calcium < 1 .0 mg/dl, administer calcium gluconate 1g IVPB. Recheck ionized calciu m level 4 hours after completion of infusion. Notify physician if ionized calcium < 1.0 mg/d L. Each 1 gm delivers 4.6 mEq calcium
And Ionized Calcium (CANCELED) Routine, PRN, Starting on Sat01/17/21 at 0112, Until Specified, For 50 occurrences
Release to patient: Immediate
Draw 4 hours post calcium replacement And Notify Physician (CANCELED) Routine, ONGOING, Starting on 01/17 at 0115, Until Specified, If calcium < 1.0 mg/dL after replacement Group 2: magnesium sulfate 1 g/D5W 100 mL IVPB Jump to med 1 g, Intravenous, 100 mL, Administer ov er 3-4 Hours, NEEDED, Starting on Sat01/17/21 at 0212, Until Sat01/20/21 at 1811, Other..., m agnesium replacement (see admin instructions)
If urine output < 30 mL/hr, SCr >2 mg/dL, check with physician prior to giving magnesium replacement. For Serum Magne sium > 2.1 mg/dL, No replacement necessary. For Serum Magnesium 1.8 - 2.0 mg/dL, give Magnesi um Sulfate 1 grams IV over 4 hours. For Serum Magnesium 1.6 - 1.7 mg/dL, give Magnesium Sulfate 2 grams IV over 8 hours (each 1gm over 4 hours). For Serum Magnesium 1.3 - 1.5 mg/dL, give M agnesium Sulfate 4 grams IV over 16 hours (each 1gm over 4 hours). For Serum Magnesium < = 1 .2 mg/dL, give Magnesium Sulfate 6 grams IV over 18 hours (each 1gm over 3 hours). Rec heck serum magnesium level 24 hours after START of appropriate replacement dose. [facility] x 1. Notify physician if serum magnesium < 2.1 mg/dL after two replacements.
And Magnesium (CANCELED) Routine, PRN, Starting on Sat01/17/21 at 0112, Until Sat01/22/21, For 50 occurrences
Release to patient: Immediate
Draw 24 hours aft er START of magnesium replacement dose And Notify Physician (CANCELED) Routine, ONGOING, Starting on 01/17 at 0115, Until Specified, If Mg < 2.1 mg/dL after two replacements Group 3: potassium chloride SR (K-DUR) tablet 40 -60 mEqJump to med 40-60 mEq, Oral, NEEDED, Starting on Sat01/17/21 at 0212, Until Sat01/20/21 at 1811, Other..., For potassium replacement, Seeadmin i nstructions
If urine output < 30mL/hr, SCr > 2mg/dL, or CrCl =/< 30 mL/min, check [facility] Physician prior to giving K+ replacement. For K 3.6 - 4 mmol/L, give 40 mEq PO/NG x1 do se. No recheck. For K 3.1 - 3.5 mmol/L, give 60 mEq PO/NG x1 dose OR 60 mEq IV (10mE q x6 doses). Recheck after 2 hours. For K =< 3 mmol/L, administer KCl 40 mEq IV (10m Eq x4 doses) AND 40 mEq PO/NG x1 dose AND notify physician. Recheck serum potassium tw o hours after completion of appropriate replacement dose. Repeat this standing order x 2. Notify physician if serum potassium < 3.3 mmol/L after three replacements. Give with meal or fu ll glass of water
Or potassium chloride oral solution 40-60 mEqJump to med 40-60 mEq, Per NG tube, NEEDED, Star ting on Sat01/17/21 at 0212, Until Sat01/20/21 at 1811, Other..., For potassium replacement, Se e admin instructions
If urine output < 30mL/hr, SCr > 2mg/dL, or CrCl =/< 30 mL/min, check wi Physician prior to giving K+ replacement. For K 3.6 - 4 mmol/L, give 40 mEq PO/NG x1 do se. No recheck. For K 3.1 - 3.5 mmol/L, give 60 mEq PO/NG x1 dose OR 60 mEq IV (10mEq x6 doses). Recheck after 2 hours. For K =< 3 mmol/L, administer KCl 40 mEq IV (10mEq x4 doses) AND 40 mEq PO/NG x1 dose AND notify physician. Recheck serum po tassium two hours after completion of appropriate replacement dose. Repeat this standing order x 2. N otify physician if serum potassium < 3.3 mmol/L after three replacements.
Or potassium chloride in water IVPB 10 mEq Jump to med 10 mEq, Intravenous, 50 mL, Administer over 30-120 Minutes, NEEDED, Starting on Sat01/17/21 at 0212, Until Sat01/20/21 at 1811, Other ..., For potassium replacement, see admin instructions
If urine output < 30mL/hr, SCr > 2mg/dL, o r CrCl =/< 30 mL/min, check with Physician prior to giving K+ replacement. For K 3.6 - 4 m mol/L, give 40 mEq PO/NG x1 dose. No recheck. For K 3.1 - 3.5 mmol/L, g alex 60 mEq PO/NG x1 dose OR 60 mEq IV over 6 hours. Recheck after 2 hours . For K =< 3 mmol/L, administer KCl 40 mEq IV (10mEq x 4 doses) AND 40 mEq PO/NG x1 dose AND not emi physician. INFUSION TIME: - Infuse each potassium chloride 10mEq IV over 2hr (5 mEq/hr.), if: The patient has a peripheral line. -OR- The patient has other runnin g sources of IV potassium. - Infuse each potassium chloride 10mEq IV over 1hr (10mEq/hr.), if: The patient is non-telemetry, and The patient has NO other running sources of IV potassium, and The patient has a central line. - Infuse each potassium chlo ride 10mEq IV over 30min (20mEq/hr.), if: The patient is on telemetry, and The patient has NO other running sources of IV potassium, and The patient has a central line. Rechec k serum potassium two hours after completion of appropriate replacement dose. Repeat this standing order x 2. Notify physician if serum potassium < 3.3 mmol/L after three replacements. NOTE: Th is is a HIGH ALERT Medication.
documented in this encounter Orders First Ordered Date Medications Ordered That Might Not Have Count Last Ordered Date Been Administered flumazeniL (ROMAZICON) injection 0.2 mg 1 01/20/2021 midazolam (VERSED) injection 1 mg 1 01/06 nalOXone (NARCAN) injection 0.08 mg 1 polyethylene glycol 3350 (MIRALAX) 1 packet 17 g sodium chloride 0.9 % infusion 1 01/20 aminocaproic acid (AMICAR) 12.5 g in 1 1 sodium chloride 0.9% (NS) IV infusion aminocaproic acid (AMICAR) injection 4 g 1 01/17/2021 calcium gluconate 1 g in sodium chloride 1 01/17/2021 0.9% (NS) 110 mL IVPB (MB+) potassium chloride in water IVPB 10 mEq 1 01/17/2021 potassium chloride oral solution 40-60 1 01/17/2021 mEq hydrALAZINE (APRESOLINE) injection 10 mg 1 01/16/2021 labetaloL (NORMODYNE) injection 10 mg 1 01/16/2021 nimodipine(#) oral solution 60 mg 1 01/06 First Ordered Date Diet Count Last Ordered Date DISCHARGE DIET REGULAR 1 01/20/2021 First Ordered Date Nursing Count Last Ordered Date DISCHARGE ACTIVITY NORMAL 1 01/20/2021 DISCHARGE ACTIVITY WORK/SCHOOL 1 021 DISCHARGE CONTACT 1 01/20/2021 DISCHARGE SIGNS/SYMPTOMS 1 01/20/2021 DISCHARGE WOUND CARE 1 01/20/2021 First Ordered Date Consult Count Last Ordered Date 01/17/2021 CONSULT INTERVENTIONAL RADIOLOGY 2 01/18 PHYSICIAN CONSULT NEURO CRITICAL CARE PHYSICIAN 1 01/16/2021 First Ordered Date OT Count Last Ordered Date OT CONSULT OCCUPATIONAL THERAPY 1 2020 First Ordered Date PT Count Last Ordered Date PT CONSULT PHYSICAL THERAPY 1 01/16/2021 First Ordered Date Admission Count Last Ordered Date ADMIT TO INPATIENT (NO BED REQUEST) 1 First Ordered Date Discharge Count Last Ordered Date DISCHARGE PATIENT NOW 1 01/20/2021 First Ordered Date Vital Signs Count Last Ordered Date VITAL SIGNS 1 01/20/2021 First Ordered Date Activity Count Last Ordered Date MOBILITY 1 01/16/2021 First Ordered Date Order Set Communication Count Last Ordered D ate VTE DRUG PROPHYLAXIS CONTRAINDICATED 1 1 First Ordered Date Appointment Request Count Last Ordered Date APPOINTMENT REQUEST: NEUROSURGERY 1 01/06 First Ordered Date Intake & Output Count Last Ordered Date INTAKE AND OUTPUT 1 01/16/[address] & Maintain Count Last Ordered Date PLACE AND MAINTAIN SCD 1 01/16/2021 documented in this encounter Additional Health Concerns Assessment Noted Time A fall risk assessment has been completed for the pat ient 01/20/2021 8:00 AM CDT documented as of this encounter
--- OUTSIDE RECORDS SUMMARY | 2021-01-23 13:38 | XMS REPORT | Clinical Summary ---
Author Author [facility] Organization [facility] Address Unknown Phone Unavailable Care Team Providers Care Auto Polisher Name Role Phone Jud Lowery MD PCP Source Comments Some departments are not documenting in the electronic medical record. If you d o not see the information that you expected, contact Release of Information in [facility] [place] Information Management department at [phone] for further assistan ce in locating additional records.[facility] Allergies No Known Active Allergies Medications End Date Status Medication Sig Dispensed Refills Start Date Active famciclovir (FAMVIR) 500 Take 500 mg 0 mg tablet by mouth every 8 hours. Active acetaminophen (TYLENOL) Take two 0 325 mg tablet tablets by 1 mouth every 4 hours as needed. Active oxyCODONE (ROXICODONE) 5 Take one 20 tablet 0 1 mg tablet tablet to two 1 tablets by mouth every 4 hours as needed NTE 6 tabs/day 01/20/2021 Discontinued ibuprofen (ADVIL) 200 mg Take 200 mg 0 tablet by mouth every 6 hours as needed for Pain (takes a couple times a week). Take with food. Active Problems Problem Noted Date Leukopenia 01/19/2021 Headache 01/17/2021 SAH (subarachnoid hemorrhage) 01/16/2021 Resolved Problems Problem Noted Date Resolved Date Constipation 01/18/2021 01/20/2021 Hypokalemia 01/17/2021 01/18/2021 Encounters Care Team Description Date Type Specialty Flores Miller RN 01/23/2021 Telephone Radiology Garrett Forde CRNA 01/17/2021 Anesthesia Radiology Event Nidhi Aragon MD Shah, Kushal J, MD SAH (subarachnoid hemorrhage) ([facility]) 01/16/2021 Hospital - Encounter 01/20/2021 01/16/2021 Travel from Last 3 Months Social History Date Tobacco Use Types Packs/Day Years Used Never Assessed Sex Assigned at Date Recorded Not on file Date Recorded COVID-19 Exposure Response 01/16/2021 9:43 PM CDT In the last month, have you been in contact with No / Unsure someone who was confirmed or suspected to have Coronavirus / COVID-19? Last Filed Vital Signs Reading Time Taken [...] 01/16/2021 11:56 PM CDT Body Mass Index Plan of Treatment Health Maintenance Due Date Last Done Comments HPV VACCINES (1 - Male 12/12/2010 2-dose series) HIV SCREENING 12/12/2014 DTAP/TDAP VACCINES (1 - 12/12/2017 Tdap) HEPATITIS C SCREENING 12/12/2017 PHYSICAL (COMPREHENSIVE) 12/12/2017 EXAM INFLUENZA VACCINE 11/06/2020 MENINGOCOCCAL VACCINE Aged Out No longer eligib le based on patient's age to (Bjorn FUNEZ) complete this topic Goals Goal Patient Associated Recent Progress Patient-Stat Aut hor Goal Type Problems ed? Recover from illness Hospital On track (01/19/2021 Светлана Hair, 10:19 AM CDT) ANGELA Duval Implants Device Identifier Shelf Expiration Date Model / Serial / L ot Implanted Type Area Manufactur er [id number] 07/07/2021 [id number] / N/A / [id number] Device Closure 6fr Starclose Se Femoral Artery ABBOT T Vascular Nitinol Clip - Sn/A VASCULAR Implanted: Qty: 1 on 01/17/2021 by DEVICES Randall Sparks MD at [facility] [id number] 09/05/2021 [id number] / N/A / [id number] Device Closure 70cm 6fr Angio-Seal Right: Femoral TE RUMO Vip .035in Vascular - Sn/A Artery MEDICAL Implanted: Qty: 1 on 01/20/2021 by Randall Gunderson MD at [facility] Procedures Comments Procedure Name Priority Date/Time Associated Diag nosis IR CEREBRAL ARTERIOGRAM Routine 01/20/2021 DIAGNOSTIC 10:53 AM CDT HC PHOSPHOROUS, SERUM Routine 01/20/2021 3:21 AM CDT HC MAGNESIUM Routine 01/20/2021 3:21 AM CDT HC CALCIUM IONIZED Routine 01/20/2021 3:21 AM CDT HC CBC W/ AUTOMATED DIFF Routine 01/20/2021 3:21 AM CDT HC BASIC METABOLIC PANEL Routine 01/20/2021 3:21 AM CDT HC MAGNESIUM Routine 01/19/2021 4:00 AM CDT HC CBC W/ AUTOMATED DIFF Routine 01/19/2021 4:00 AM CDT HC BASIC METABOLIC PANEL Routine 01/19/2021 4:00 AM CDT HC CALCIUM IONIZED Routine 01/19/2021 3:59 AM CDT HC PHOSPHOROUS, SERUM Routine 01/18/2021 4:40 AM CDT HC MAGNESIUM Routine 01/18/2021 4:40 AM CDT HC CALCIUM IONIZED Routine 01/18/2021 4:40 AM CDT HC CBC W/ AUTOMATED DIFF Routine 01/18/2021 4:40 AM CDT HC BASIC [...] STAT 01/17/2021 PRO 3:25 AM CDT HC PHOSPHOROUS, SERUM STAT 01/17/2021 12:04 AM CDT HC MAGNESIUM STAT 01/17/2021 12:04 AM CDT HC COMPREHENSIVE STAT 01/17/2021 METABOLIC PANEL 12:04 AM CDT HC PTT(APTT) STAT 01/17/2021 12:04 AM CDT HC PT(INR) STAT 01/17/2021 12:04 AM CDT HC CBC W/ AUTOMATED DIFF STAT 01/17/2021 12:04 AM CDT COVID-19 (SARS-COV-2) PCR Routine 01/17/2021 12:02 AM CDT from Last 3 Months Results * IR CEREBRAL ARTERIOGRAM DIAGNOSTIC (01/20/2021 10:53 AM CDT) Only the most recent of 2 results within the time period is included. Specimen Impressions Performed At 1. No evidence [...] artery angiogra m. Referring Physician - Mert Calzada MD Neurointerventionalist: Randall garcia MD I was [...] Versed and Fentanyl. Contrast - 110 cc [id number] Total mGy - 1527 Anesthesia: conscious sedation [...] 25 cm sheath was [facility] the [facility] t common femoral artery, establishing arterial access. AMIRA Technique A 5 Dominican 100 cm Vert catheter was adv anced over a 150 cm 0.035 [place] wire over the aortic arch and into [...] Technique The catheter was attached to the [employer] power injector and a right internal [...] under fluoroscopic and roadmap guidance over the [place] wire an d images were obtained in [...] under fluoroscopic and roadmap guidance over the [place] wire an d images were obtained in [...] hemostasis was achieved usin g a 6 Dominican Angioseal closure device followed by manual pressure [...] artery angiogram . Referring Physician - Mert Calzada MD Neurointerventionalist: Randall Sparks MD I was [...] Versed and Fentanyl. Contrast - 110 cc [id number] Total mGy - 1527 Anesthesia: conscious sedation [...] establishing arterial access. AMIRA Technique A 5 Dominican 100 cm Vert catheter was advanced over a 150 cm 0.035 [place] wire over the aortic arch and into [...] under fluoroscopic and roadmap guidance over the [place] wire and images were obtained in biplane [...] under fluoroscopic and roadmap guidance over the [place] wire and images were obtained in biplane [...] therefore, hemostasis was achieved using a 6 Dominican Angioseal closure device followed by manual pressure [...] Dictated by RANDALL SPARKS M.D. on 01/20/2021 10:59 AM. Performing Organization Address City/State/ZIP Code P bk Number [facility] RESULTS * CBC AND DIFF (01/20/2021 3:21 AM CDT) Only the most recent of 5 results within the time period is included. White Blood 4.2 (L) 4.5 - 11.0 [...] P bk Number [facility] [address] [place] [address] * PHOSPHORUS (01/20/2021 3:21 AM CDT) Only the most recent of 3 results within the time period is included. Phosphorus 5.2 (H) 2.0 - 4.5 MG/DL [facility] Specimen Blood Performing Organization Address City/[facility]/ZIP Code P bk Number [facility] [address] [place] [address] * MAGNESIUM (01/20/2021 3:21 AM CDT) Only the most recent of 4 results within the time period is included. Magnesium 2.0 1.6 - 2.6 mg/dL [facility] Specimen Blood Performing Organization Address City/[facility]/ZIP Code P bk Number [facility] [address] [place] [address] * IONIZED CALCIUM (01/20/2021 3:21 AM CDT) Only the most recent of 3 results within the time period is included. Ionized Calcium 1.22 1.0 - 1.3 MMOL/L [facility] Specimen Blood Performing Organization Address City/[facility]/ZIP Code P bk Number [facility] [address] [place] [address] * BASIC METABOLIC PANEL (01/20/2021 3:21 AM CDT) Only the most recent of 4 results within the time period is included. Sodium 142 137 - 147 MMOL/L [facility] [...] >60 >60 mL/min [facility] Comment: [place] The eGFR is not validated f or use in drug dosing adjustments. Continue to use estimated creatinine clearance per dosing reference text. Please contact the Clinical Pharmacist for questions. eGFR >60 >60 mL/min [facility] [place] Comment: The eGFR is not validated for use in drug dosing adjustments. Continue to use estimated creatinine clearance per dosing reference text. Please contact the Clinical Pharmacist for questions. Specimen Blood Performing Organization Address [facility] Code P bk Number [facility] [address] [place] [address] * PHENCYCLIDINES-URINE RANDOM (01/17/2021 10:40 AM CDT) Phencyclidine NEG NEG-NEG MAIN LAB (PCP) Comment: RESULTS WERE OBTAINED BY IMMUNOASSAY AND ARE PRESUMPTIVE ONLY. POSITIVE INDICATES THE PRESENCE OF SUBSTANCE WITH CHARACTERISTICS SIMILAR TO DRUG-DRUG CLASS OR METABOLITE IN CONC. EQUAL TO OR EXCEEDING VALUES LISTED. PHENCYCLIDINE (PCP) 25 NG/ML Specimen Urine - Urine Performing Organization Address City/[facility]/ZIP Code P bk Number [facility] [address] [place] [address] * OPIATES-URINE RANDOM (01/17/2021 10:40 AM CDT) Opiates-Urine NEG NEG-NEG [facility] Comment: RESULTS WERE OBTAINED BY IMMUNOASSAY AND ARE PRESUMPTIVE ONLY. POSITIVE INDICATES THE PRESENCE OF SUBSTANCE WITH CHARACTERISTICS SIMILAR TO DRUG-DRUG CLASS OR METABOLITE IN CONC. EQUAL TO OR EXCEEDING VALUES LISTED. OPIATES 2000 NG/ML Specimen Urine - Urine Performing Organization Address City/[facility] Code P bk Number MAIN LAB [address] [place] [address] * COCAINE-URINE RANDOM (01/17/2021 10:40 AM CDT) Cocaine-Urine NEG NEG-NEG MAIN LAB Comment: RESULTS WERE OBTAINED BY IMMUNOASSAY AND ARE PRESUMPTIVE ONLY. POSITIVE INDICATES THE PRESENCE OF SUBSTANCE WITH CHARACTERISTICS SIMILAR TO DRUG-DRUG CLASS OR METABOLITE IN CONC. EQUAL TO OR EXCEEDING VALUES LISTED. COCAINE 300 NG/ML Specimen Urine - Urine Performing Organization [facility] P bk Number [facility] [address] [place] [address] * CANNABINOIDS-URINE RANDOM (01/17/2021 10:40 AM CDT) THC NEG NEG-NEG MAIN LAB Comment: RESULTS WERE OBTAINED BY IMMUNOASSAY AND ARE PRESUMPTIVE ONLY. POSITIVE INDICATES THE PRESENCE OF SUBSTANCE WITH CHARACTERISTICS SIMILAR TO DRUG-DRUG CLASS OR METABOLITE IN CONC. EQUAL TO OR EXCEEDING VALUES LISTED. CANNABINOIDS 50 NG/ML Specimen Urine - Urine Performing Organization [facility] P bk Number MAIN LAB [address] [place] [address] * BENZODIAZEPINES-URINE RANDOM (01/17/2021 10:40 AM CDT) Benzodiazepines POS (A) NEG-NEG MAIN LAB Comment: RESULTS WERE OBTAINED BY IMMUNOASSAY AND ARE PRESUMPTIVE ONLY. POSITIVE INDICATES THE PRESENCE OF SUBSTANCE WITH CHARACTERISTICS SIMILAR TO DRUG-DRUG CLASS OR METABOLITE IN CONC. EQUAL TO OR EXCEEDING VALUES LISTED. BENZODIAZEPINES 200 NG/ML Specimen Urine - Urine Performing Organization Address [facility] P bk Number [facility] [address] [place] [address] * BARBITURATES-URINE RANDOM (01/17/2021 10:40 AM CDT) Barbiturates,Ur NEG NEG-NEG MAIN LAB ine Comment: RESULTS WERE OBTAINED BY IMMUNOASSAY AND ARE PRESUMPTIVE ONLY. POSITIVE INDICATES THE PRESENCE OF SUBSTANCE WITH CHARACTERISTICS SIMILAR TO DRUG-DRUG CLASS OR METABOLITE IN CONC. EQUAL TO OR EXCEEDING VALUES LISTED. BARBITURATES 200 NG/ML Specimen Urine - Urine [facility] Code P bk Number [facility] [address] [place] [address] * AMPHETAMINES-URINE RANDOM (01/17/2021 10:40 AM CDT) Amphetamines NEG NEG-NEG [facility] Comment: RESULTS WERE OBTAINED BY IMMUNOASSAY AND ARE PRESUMPTIVE ONLY. POSITIVE INDICATES THE PRESENCE OF SUBSTANCE WITH CHARACTERISTICS SIMILAR TO DRUG-DRUG CLASS OR METABOLITE IN CONC. EQUAL TO OR EXCEEDING VALUES LISTED. AMPHETAMINES 1000 NG/ML Specimen Urine - Urine Performing Organization Address City/State/ZIP Code P bk Number [facility] [address] [place] [address] * CTA HEAD WO/W CONTR+POST PRO (01/17/2021 [...] P bk Number [facility] RESULTS * PTT (APTT) (01/17/2021 12:04 AM CDT) APTT 23.8 (L) 24.0 - 36.5 SEC MAIN LAB Specimen Blood Performing Organization Address City/State/ZIP Code P bk Number [facility] [address] [place] [address] * PROTIME INR (PT) (01/17/2021 12:04 AM CDT) Pathologist [facility] INR 1.0 0.8 - 1.2 [facility] Specimen Blood Performing Organization Address [facility] P bk Number [facility] [address] [place] [address] * COMPREHENSIVE METABOLIC PANEL (01/17/2021 12:04 AM CDT) [facility] Sodium 138 137 - 147 MMOL/L [facility] [...] >60 >60 mL/min [facility] Comment: [place] The eGFR is not validated f or use in drug dosing adjustments. Continue to use estimated creatinine clearance per dosing reference text. Please contact the Clinical Pharmacist for questions. eGFR >60 >60 mL/min [facility] [place] Comment: The eGFR is not validated for use in drug dosing adjustments. Continue to use estimated creatinine clearance per dosing reference text. Please contact the Clinical Pharmacist for questions. Specimen Blood Performing Organization Address [facility]/ZIP Code P bk Number [facility] [address] [place] [id number] * COVID-19 (SARS-COV-2) PCR (01/17/2021 12:02 AM CDT) COVID-19 FLOCKED SWAB MAIN LAB (SARS-CoV-2) NASOPHARYNGEAL PCR Source COVID-19 NOT DETECTED DN-NOT DETECTED [facility] (SARS-CoV-2) Comment: PCR This assay is [...] performance characteristics have been verified by the [facility] clinical laboratory. 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
--- OUTSIDE RECORDS SUMMARY | 2021-01-23 13:38 | XMS REPORT | Encounter Summary ---
Author Author [facility] Organization [facility] Address Unknown Phone Unavailable Care Team Providers Care Print Production Associate Name Role Phone Jud Lowery MD PCP Encounter Details Care Team Description Date Type Department Flores Miller RN 01/23/2021 Telephone Interventional Radi ology: [place], [facility] [address] [facility] [address], [id number] [place] [address] Social History Date Tobacco Use Types Packs/Day Years Used Never Assessed Sex Assigned at Date Recorded Not on file Date Recorded COVID-19 Exposure Response 01/16/2021 9:43 PM CDT In the last month, have you been in contact with No / Unsure someone who was confirmed or suspected to have Coronavirus / COVID-19? documented as of this encounter Functional Status Date of Assessment Functional Status Response 01/19/2021 Does the patient have a hearing impairment: No documented as of this encounter Progress Notes * Flores Miller RN - 01/23/2021 1:17 PM CDT Interventional Radiology Progress Note Patient called today c/o L leg pain s/p arteriogram on 01/17 and 01/20. R femora l artery access for both arteriograms. Updated pt L leg pain is likely unrelated to angio as R groin was accessed both times. Pt states pain is in the back of h is L leg and only on the left side. Instructed him to go to the ED to be evaluat ed for a blood clot. Flores Miller RN documented in this encounter Plan of Treatment Not on filedocumented as of this encounter Goals Goal Patient Associated Recent Progress Patient-Stat Aut hor Goal Type Problems ed? Recover from illness Hospital On track (01/19/2021 No Laxmi, 10:19 AM CDT) ANGELA Duval documented as of this encounter Visit Diagnoses Not on filedocumented in this encounter Additional Health Concerns Assessment Noted Time A fall risk assessment has been completed for the pat ient 01/20/2021 8:00 AM CDT documented as of this encounter
--- OUTSIDE RECORDS SUMMARY | 2021-01-23 13:38 | XMS REPORT | Encounter Summary ---
Author Author [facility] Organization [facility] Address Unknown Phone Unavailable Care Team Providers Care Hunting Guide Name Role Phone Jud Lowery MD PCP Encounter Details Care Team Description Date Type Department Garrett Forde CRNA [id number] [place], [place] [id number] 01/17/2021 Anesthesia Interventional Radi ology: Event [place] [address] [facility] [address] [place] [phone] Anesthesia Record Responsible Anesthesiologist Anesthesia Start Time Anesthesi a Stop Time Procedure Name IR CEREBRAL ARTERIOGRAM DIAGNOSTIC Date Time Event Comment 811 In Room 2020 0854 Proc Start Meds * No agents on file. * No blood administrations on file. No LDAs on file. documented in this encounter Social History Date Tobacco Use Types Packs/Day Years Used Never Assessed Sex Assigned at Date Recorded Not on file Date Recorded COVID-19 Exposure Response 01/16/2021 9:43 PM CDT In the last month, have you been in contact with No / Unsure someone who was confirmed or suspected to have Coronavirus / COVID-19? documented as of this encounter Plan of Treatment Not on [...] has been completed for the pat ient 01/17/2021 8:00 PM CDT documented as of this encounter
--- OUTSIDE RECORDS SUMMARY | 2021-01-23 13:38 | XMS REPORT | Encounter Summary ---
Author Author [facility] Organization [facility] Address Unknown Phone Unavailable Care Team Providers Care Event Services Manager Name Role Phone Jud Lowery MD PCP Encounter Details Care Team Description Date Type Department 01/16/2021 Travel Social History Date Tobacco Use Types Packs/Day [...] has been completed for the pat ient 01/16/2021 11:56 PM CDT documented as of this encounter
--- NOTE | 2021-01-23 14:08 | ED Lower Extremity ---
General Chief Complaint: Lower Extremity Stated Complaint: LT LEG PAIN Source: patient History of Present Illness Date Seen by Provider: Jan 23, 2021 Time Seen by Provider: 14:02 Initial Comments 20-year-old male presenting with complaints of pain to the left leg. He states with bearing weight or stretching his leg out he has increased pain. Pain is down the back of his leg on the left side. He was just discharged from the hospital after having a spontaneous subarachnoid hemorrhage. He denies any direct trauma to his leg. He had checked with the providers at and they recommended him to come in and get an ultrasound to look for blood clot. Pain/Injury Location: left leg, left thigh (Pain in the posterior aspect of the left leg with bearing weight and full extension of the leg) Method of Injury: unknown Modifying Factors: Improves With Other (bearing weight) Allergies and Home Medications Allergies Coded Allergies: No Known Drug Allergies (Unverified , 01/16/21) Patient Home Medication List Home Medication List Reviewed: Yes Baclofen (Baclofen) 10 Mg Tablet, 10 MG PO BID PRN for MUSCLE CRAMPS Prescribed by: SRIDEVI JACOBSON on 01/23/21 1522 Review of Systems Constitutional: No chills, No fever EENTM: no symptoms reported Respiratory: no symptoms reported Cardiovascular: no symptoms reported Gastrointestinal: no symptoms reported Genitourinary: no symptoms reported Musculoskeletal: see HPI Skin: No rash Psychiatric/Neurological: Denies Numbness, Denies Paresthesia Past [id number]-Feyidu-Aqvgvd Hx Patient Social History Tobacco Use?: No Use of E-Cig and/or Vaping dev: No Substance use?: No Alcohol Use?: Yes Alcohol type: Beer Alcohol Frequency: Once in a while Pt feels they are or have been: No Past Medical History Surgery/Hospitalization HX: Subarachnoid hemmorhage 16 January 2021. Surgeries: Yes Orthopedic Respiratory: No Cardiac: No Neurological: No Genitourinary: No Gastrointestinal: No Musculoskeletal: No Endocrine: No HEENT: No Cancer: No Psychosocial: No Physical Exam Vital Signs Vital Signs - First Documented 01/23/21 13:45 Temp 36.8 Pulse 57 Resp 18 B/P (MAP) 140/64 (89) Pulse Ox 99 O2 Delivery Room Air Capillary Refill : Height, Weight, BMI Height: '" Weight: lbs. oz. kg; 26.00 BMI Method: General Appearance: WD/WN, no apparent distress HEENT: PERRL/EOMI Cardiovascular: normal peripheral pulses Hips: bilateral hip non-tender, bilateral hip normal inspection, bilateral hip normal range of motion Legs: left leg other (Complains of pain to the posterior thigh and calf with extension of his leg and bearing weight. No pain with palpation) Neurologic/Tendon: normal sensation, normal motor functions, normal tendon functions Neurologic/Psychiatric: alert, oriented x 3 Skin: normal color, warm/dry Progress/Results/Core Measures Results/Orders My Orders Orders - SRIDEVI JACOBSON MD Us Venous Lower Ext Lt (01/23/21 14:08) Vital Signs/I&O 01/23/21 01/23/21 13:45 15:35 Temp 36.8 36.8 Pulse 57 57 Resp 18 18 B/P (MAP) 140/64 (89) 140/64 Pulse Ox 99 99 O2 Delivery Room Air Room Air Progress Progress Note #1: Progress Note Obtain ultrasound of the left lower extremity to evaluate for blood clot as he has been laid up in the bed due to subarachnoid hemorrhage for several days. Progress Note #2: Progress Note Ultrasound of the left lower extremity showed negative DVT study with a Doppler exam. Counseled patient on follow-up and return precautions. We will try a muscle relaxer and symptomatic care. Diagnostic Imaging Diagonstic Imaging: Ultrasound Plain Films/CT/US/NM/MRI: leg Comments NAME: REX HORTON [facility] REC#: [id number] PT STATUS: REG ER : 2000 PHYSICIAN: SRIDEVI JACOBSON MD ADMIT DATE: 01/23/21/ER FS Signed Date of Exam:01/23/21 US VENOUS LOWER EXT LT EXAMINATION: US Lower Extremity Venous Duplex Left. TECHNIQUE: Multiple real-time grayscale images were obtained over the left lower extremity in various projections. Additional spectral analysis and color Doppler duplex images were also obtained. HISTORY: Left leg pain and swelling. COMPARISON: None available. FINDINGS: The left common femoral vein, deep femoral vein, superficial femoral vein and popliteal vein are patent with normal soria scale and doppler appearance. There is normal respiratory variation and augmentation. IMPRESSION: 1. No DVT of the left lower extremity. Dictated by: Dictated on workstation # [id number] Dict: 01/23/21 1989 Trans: 01/23/21 1509 [facility] [id number] Interpreted by: JASIEL MUÑOZ DO Electronically signed by: JASIEL MUÑOZ DO 01/23/21 1509 Departure Impression Primary Impression: Left leg pain Additional Impression: Muscle strain of left lower extremity Qualified Codes: S86.912A - Strain of unspecified muscle(s) and tendon(s) at lower leg level, left leg, initial encounter Disposition: 01 HOME, SELF-CARE Condition: Stable Departure-Patient Inst. Decision time for Depature: 15:21 Referrals: KEN FREED DO (PCP/Family) Primary Care Physician Patient Instructions: Leg Muscle Strain ED, Muscle and Bone Pain (DC) Add. Discharge Instructions: No evidence of blood clots in the left leg. The pain may be more tightness and strain in the muscles. Treat with alternating ice and heat. Try gentle stretching of the left leg. May take muscle relaxer for severe pain. All discharge instructions reviewed with patient and/or family. Voiced understanding. Scripts Baclofen (Baclofen) 10 Mg Tablet 10 MG PO BID PRN for MUSCLE CRAMPS for 7 Days, #14 TAB 0 Refills Prov: SRIDEVI JACOBSON MD 01/23/21 SRIDEVI JACOBSON MD Jan 23, 2021 14:08
--- NOTE | 2021-01-23 15:04 | Diagnostic Imaging Report ---
EXAMINATION: US Lower Extremity Venous Duplex Left. TECHNIQUE: Multiple real-time grayscale images were obtained over the left lower extremity in various projections. Additional spectral analysis and color Doppler duplex images were also obtained. HISTORY: Left leg pain and swelling. COMPARISON: None available. FINDINGS: The left common femoral vein, deep femoral vein, superficial femoral vein and popliteal vein are patent with normal soria scale and doppler appearance. There is normal respiratory variation and augmentation. IMPRESSION: 1. No DVT of the left lower extremity. Dictated by: Dictated on workstation # [id number]
[2021-01-23] MEDS ORDERED: BACL10TA PO (15:22)
[2021-01-23 15:35] VITALS: BP 140/64
== END 2021-01-23 15:35 | disposition home or self-care (01) ==
LOC: EDUNIT# 13:32 → ER FS 13:34
DX: S86.912A Strain of unspecified muscle(s) and tendon(s) at lower leg level, left leg, initial encounter (principal); X50.0XXA Overexertion from strenuous movement or load, initial encounter